=== PATIENT | male | born 1970 | race Caucasian/White ===

== ENCOUNTER 2020-04-25 09:35 | Inpatient (IN) | payer OTHER ==
[2020-04-25] MEDS ORDERED: ASPIRIN 81 MG PO STA (09:47)
[2020-04-25] MEDS ORDERED: HEPARIN SODIUM,PORCINE 5,000 UNIT/ML 1 ML VIAL IV STA (09:47)
[2020-04-25] MEDS ORDERED: NALOXONE 0.4 MG/ML 1 ML VIAL IV PRN (09:51)
--- NOTE | 2020-04-25 09:51 | ED ---
General Adult HPI - General Chief complaint: Chest Pain Stated complaint: chest pain Time Seen by Provider: 04/25/20 09:40 Source: family Mode of arrival: wheelchair Limitations: no limitations - History of Present Illness Initial comments: Dictation was produced using [employer] dictation software. please excuse any grammatical, word or spelling errors. This patient was cared for during a federal and state declared state of emergency secondary to Covid 19 Chief Complaint: 49-year-old male presents with chest pain since yesterday. History of Present Illness: Patient's 49-year-old male he has family history of coronary artery disease and heart attacks. Patient states she's been having severe chest pain since yesterday. This morning he woke up with the symptoms getting acutely worsened. He has had diaphoresis along with this. He states that he has paresthesias going down the left upper extremity. Patient denies that the pain radiates to his back. Patient has past medical history of hypertension. Patient has never had a heart attack. Patient is a current every day tobacco user. Does complain of some mild nausea. The ROS documented in this emergency department record has been reviewed and confirmed by me. Those systems with pertinent positive or negative responses have been documented in the HPI. All other systems are other negative and/or noncontributory. PHYSICAL EXAM: General Impression: Alert and oriented x3, acute distress secondary to pain, pale HEENT: Normocephalic atraumatic, extra-ocular movements intact, pupils equal and reactive to light bilaterally, mucous membranes moist. Cardiovascular: Heart regular rate and rhythm Chest: Able to complete full sentences, no retractions, no tachypnea Abdomen: abdomen soft, non-tender, non-distended, no organomegaly Musculoskeletal: Pulses present and equal in all extremities, no peripheral edema Motor: no focal deficits noted Neurological: CN II-XII grossly intact, no focal motor or sensory deficits noted Skin: Intact with no visualized rashes Psych: Normal affect and mood ED course: 49-year-old male presents with chest pain concerning for acute coronary syndrome. EKG obtained showing inferior wall STEMI. There is ST elevations in 3 aVF with reciprocal changes in 1 and aVL and lateral precordial leads. Right-sided EKG was performed showing ST elevations. Clinical presentation consistent with right-sided myocardial infarction. Her also diffuse Q waves. Code STEMI paged. Patient given aspirin and heparin. Discussed patient case with Dr. Candelario will be taking patient to the [facility] for cardiac catheterization and likely intervention.. Discussed patient case with sheet was went except patient's care for hospital admission. EKG interpretation: Ventricular rate 102, sinus tachycardia, CA interval 150, QRS 106, QTC 500. No CA prolongation, no QTC prolongation, ST elevations in 3 and aVF with reciprocal changes in 1 aVL and V4 to V6 - Related Data Allergies Allergy/AdvReac Type Severity Reaction Status Date / Time No Known Allergies Allergy Verified 04/25/20 09:39 Review of Systems ROS Statement: Those systems with pertinent positive or pertinent negative responses have been documented in the HPI. ROS Other: All systems not noted in ROS Statement are negative. Past Medical History Past Medical History: Hypertension Past Surgical History: Unable to Obtain Past Psychological History: No Psychological Hx Reported Smoking Status: Current every day smoker Past Alcohol Use History: None Reported Past Drug Use History: None Reported General Exam Limitations: no limitations Course Vital Signs 04/25/20 04/25/20 09:37 09:45 Temperature 97.4 F L Pulse Rate 64 103 H Respiratory 18 24 Rate Blood Pressure 178/130 O2 Sat by Pulse 98 97 Oximetry Disposition Clinical Impression: STEMI (ST elevation myocardial infarction) Disposition: ADMITTED IP TO THIS HOSP Condition: Critical Referrals: None,Stated [Primary Care Provider] - 1-2 days Decision Time: 09:50
[2020-04-25] MEDS ORDERED: MORPHINE SULFATE 2 MG/ML SYRINGE IVP STA (09:54)
[2020-04-25] MEDS ORDERED: HEPARIN SOD,PORK IN 0.45% NACL 25,000 UNIT in 0.45% NACL 1 250ML.BAG IV SCH (10:00)
[2020-04-25 10:01] LABS: Basophils # (A) 0.1 k/uL (0-0.2); Basophils % (A) 1 %; Eosinophils # (A) 0.2 k/uL (0-0.7); Eosinophils % (A) 1 %; HCT 42.6 % (39.0-53.0); HGB 13.6 gm/dL (13.0-17.5); Hypochromasia Slight; Lymphocytes # (A) 1.7 k/uL (1.0-4.8); Lymphocytes % (A) 9 %; MCH 27.2 pg (25.0-35.0); MCHC 31.9 g/dL (31.0-37.0); MCV 85.1 fL (80.0-100.0); Monocytes # (A) 0.7 k/uL (0-1.0); Monocytes % (A) 4 %; Neutrophils # (A) 15.3 k/uL (1.3-7.7); Neutrophils % (A) 85 %; Platelet Count 384 k/uL (150-450); RBC 5.01 m/uL (4.30-5.90); RDW 15.9 % (11.5-15.5); WBC 18.1 k/uL (3.8-10.6)
--- NOTE | 2020-04-25 10:04 | XR ---
EXAMINATION TYPE: XR chest 1V portable DATE OF EXAM: 04/25/2020 COMPARISON: 10/15/2011 HISTORY: Chest pain TECHNIQUE: Single frontal view of the chest is obtained. FINDINGS: Examination is poorly penetrated. There appear to be right infrahilar and left perihilar infiltrates. Correlate clinically. No evidence for pneumothorax. The cardiac silhouette size is within normal limits. The osseous structures are intact. IMPRESSION: 1. Examination is poorly penetrated. There appear to be right infrahilar and left perihilar infiltra rodríguez. Correlate clinically.
[2020-04-25 10:11] LABS: Albumin 3.7 g/dL (3.5-5.0); Total Protein 6.7 g/dL (6.3-8.2)
[2020-04-25] MEDS ORDERED: LIDOCAINE 1% INJ 10MG/ML (20 ML MDV) SQ ONE (10:12)
[2020-04-25] MEDS ORDERED: MIDAZOLAM 2 MG/2 ML VIAL IVP ONE (10:12)
[2020-04-25] MEDS ORDERED: fentaNYL (PF) 50 MCG/ML 2 ML AMP IVP ONE (10:12)
[2020-04-25 10:19] LABS: INR 1.1 (<1.2); Partial Thromboplastin Time 23.7 sec (22.0-30.0)
[2020-04-25] MEDS ORDERED: FUROSEMIDE 10 MG/ML 4 ML VIAL IV ONE (10:25)
[2020-04-25] MEDS ORDERED: BIVALIRUDIN BOLUS 250 MG/50 ML IV ONE (10:25)
[2020-04-25] MEDS ORDERED: BIVALIRUDIN 250 MG in SODIUM CHLORIDE 0.9% 50 ML IV ONE (10:25)
[2020-04-25] MEDS ORDERED: FLUMAZENIL 0.1 MG/ML 5 ML VIAL IVP ONE ×2 (10:40→10:42)
[2020-04-25] MEDS ORDERED: IOPAMIDOL-370 100ML BTL INJ ONE ×2 (10:42→10:53)
[2020-04-25] MEDS ORDERED: PRASUGREL 10 MG TAB PO ONE (10:45)
[2020-04-25] MEDS ORDERED: ATROPINE SULFATE 0.1 MG/ML 10ML SYRINGE IV ONE (10:45)
[2020-04-25] MEDS ORDERED: IV FLUID CONTINUATION 1,000 ML IV ONE (10:54)
[2020-04-25] MEDS ORDERED: RX INFO: IV CONTRAST WAS GIVEN 1 EACH MISC MISCELLANE PRN (10:59)
[2020-04-25] MEDS ORDERED: ATROPINE SULFATE 0.1 MG/ML 10ML SYRINGE IV PRN (10:59)
[2020-04-25] MEDS ORDERED: ZOLPIDEM 5 MG TAB PO PRN (10:59)
[2020-04-25] MEDS ORDERED: MAG HYDROX/AL HYDROX/SIMETH 30 ML CUP PO PRN (10:59)
[2020-04-25] MEDS ORDERED: NITROGLYCERIN SL TABS 0.4 MG TAB SUBLINGUAL PRN (10:59)
[2020-04-25] MEDS ORDERED: SODIUM CHLORIDE 0.9% 1,000 ML IV SCH (11:00)
[2020-04-25 11:27] LABS: Glucose,Whole Blood 161 mg/dL (75-99)
[2020-04-25] MEDS ORDERED: METOPROLOL SUCCINATE (ER) 50 MG TAB.ER.24H PO SCH (12:00)
[2020-04-25] MEDS ORDERED: LISINOPRIL 20 MG TAB PO SCH (12:00)
[2020-04-25 14:09] VITALS: BMI 30.9
[2020-04-25] MEDS ORDERED: LISINOPRIL 20 MG TAB PO STA (15:07)
[2020-04-25] MEDS ORDERED: METOPROLOL SUCCINATE (ER) 50 MG TAB.ER.24H PO STA (15:10)
--- NOTE | 2020-04-25 15:25 | CONS ---
RAKESH Cook is a 49-year-old gentleman with history of hypertension who presented to the hospital with acute onset chest pain. He states that he started having pericardial chest pain around 7 o'clock this morning, severe intensity precordial and radiated to his back. This started after he started having an argument. He came to the ER where an EKG showed acute ST-segment elevation and was advised to undergo emergent cardiac catheterization. 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 He appears uncomfortable at rest. Blood pressure is elevated. Complains of chest pain and started him on IV nitro and proceeded to perform emergent cardiac catheterization on him. His labs were pending at that time, but subsequently the labs came back. His creatinine is 1.1, hemoglobin is 13.6, white cell count is elevated. Potassium is 4. PAST MEDICAL HISTORY: Significant for hypertension. MEDICATIONS: At home include hydralazine 100 t.i.d., Toprol-XL 100 daily, Prozac, Klonopin, minoxidil, lisinopril, and Lasix. ALLERGIES: There are no known drug allergies. FAMILY HISTORY: Significant for premature coronary artery disease. SOCIAL HISTORY: Significant for smoking. He denies any drug abuse. REVIEW OF SYSTEMS: HEENT is unremarkable. Cardiac as described above. Respiratory negative. GI negative. Genitourinary negative. Allergy none. Skin negative. MUSCULOSKELETAL: Negative. ENDOCRINE: Negative. DERM: Negative. CONSTITUTIONAL: Negative. ONCOLOGICAL: Negative. 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 PSYCHOSOCIAL negative. Rest of the system review is not relevant. EXAM: Heart rate is 103 beats per minute. Blood pressure is 157/120, O2 saturation is 100% on 2 L. there is no jugular venous distention. Chest exam reveals good air entry bilaterally. Heart exam reveals first and second heart sounds. An S4 is heard. Abdomen is soft. Exam of extremities did not reveal any edema. Peripheral pulses are felt. An S4 is heard. Abdomen is soft. LABS: Have been reviewed. EKG shows sinus rhythm with evidence of prior inferior wall myocardial infarction, poor R-wave progression and intraventricular conduction delay and there are extensive ST-T wave changes noted. ASSESSMENT: 1. Acute inferior wall myocardial infarction. 2. Severe uncontrolled hypertension. PLAN: The patient will undergo emergent cardiac catheterization. We will try and control his blood pressures. MMODL / IJN: [id number] /
[2020-04-25] MEDS: NITROGLYCERIN OINT 1 INCH/GM PACKET TOPICAL SCH (15:30)
--- NOTE | 2020-04-25 15:41 | P.HPIM ---
History of Present Illness Patient is a pleasant 49-year-old gentleman came in with compensative chest pain-free currently. Typical chest pain severe chest pain along with associate shortness of breath and diaphoresis. Patient is found to have ST elevations in inferior leads underwent cardiac catheterization and found to have significant lesions in the right coronary artery received 2 stents. Patient is presently in dual antiplatelet therapy in the beta sloane. Patient with blood cell count is elevated. Patient chest pain significantly improved does have history of smoking is not wheezing at this time. Patient blood pressure was elevated on admission. Review of Systems REVIEW OF SYSTEMS: CONSTITUTIONAL: No fever, no malaise, no fatigue. HEENT: No recent visual problems or hearing problems. Denied any sore throat. CARDIOVASCULAR: No orthopnea, PND, no palpitations, no syncope. PULMONARY: no cough, no hemoptysis. GASTROINTESTINAL: No diarrhea, no nausea, no vomiting, no abdominal pain. NEUROLOGICAL: No headaches, no weakness, no numbness. HEMATOLOGICAL: Denies any bleeding or petechiae. GENITOURINARY: Denies any burning micturition, frequency, or urgency. MUSCULOSKELETAL/RHEUMATOLOGICAL: Denies any joint pain, swelling, or any muscle pain. ENDOCRINE: Denies any polyuria or polydipsia. The rest of the 14-point review of systems is negative. Past Medical History Past Medical History: Coronary Artery Disease (CAD), Chest Pain / Angina, COPD, GERD/Reflux, Hypertension, Osteoarthritis (OA), Rheumatoid Arthritis (RA) Additional Past Medical History / Comment(s): Opiate addiction remission since 2014. History of Any Multi-Drug Resistant Organisms: None Reported Past Surgical History: Unable to Obtain Additional Past Surgical History / Comment(s): R foot reconstruction post crushing injury. Past Anesthesia/Blood Transfusion Reactions: No Reported Reaction Past Psychological History: No Psychological Hx Reported Smoking Status: Current every day smoker Past Alcohol Use History: None Reported Past Drug Use History: None Reported Medications and Allergies Home Medications Medication Instructions Recorded Confirmed Type FLUoxetine HCL [PROzac] 20 mg PO DAILY 04/25/20 04/25/20 History Furosemide [Lasix] 40 mg PO DAILY 04/25/20 04/25/20 History Lisinopril 40 mg PO DAILY 04/25/20 04/25/20 History Metoprolol Succinate (ER) [Toprol 100 mg PO DAILY 04/25/20 04/25/20 History Xl] Minoxidil [Loniten] 10 mg PO DAILY 04/25/20 04/25/20 History clonazePAM [KlonoPIN] 2 mg PO TID PRN 04/25/20 04/25/20 History hydrALAZINE HCL [Apresoline] 100 mg PO TID 04/25/20 04/25/20 History lamoTRIgine [LaMICtal] 200 mg PO DAILY 04/25/20 04/25/20 History Allergies Allergy/AdvReac Type Severity Reaction Status Date / Time No Known Allergies Allergy Verified 04/25/20 10:02 Physical Exam Vitals: Vital Signs Temp Pulse Resp BP Pulse Ox 04/25/20 14:00 92 14 152/107 98 04/25/20 13:45 89 19 94 L 04/25/20 13:30 97 18 96 04/25/20 13:15 97 14 98 04/25/20 13:00 96 14 146/94 97 04/25/20 12:45 93 16 97 04/25/20 12:30 93 20 97 04/25/20 12:15 90 19 96 04/25/20 12:00 98 F 92 19 145/94 95 04/25/20 11:45 97 16 121/83 96 04/25/20 11:30 96 18 94 L 04/25/20 09:55 103 H 20 157/120 100 04/25/20 09:51 102 H 20 177/139 100 04/25/20 09:45 103 H 24 178/130 97 04/25/20 09:37 97.4 F L 64 18 98 Intake and Output 04/25/20 04/25/20 04/25/20 06:59 14:59 22:59 Intake Total 627 Output Total 1400 Balance -773 Intake: IV 627 Sodium Chloride 0.9% 1, 300 000 ml @ 75 mls/hr IV . [id number] [facility] Rx#:[id number] Output: Urine 1400 Other: Weight 81.647 kg ABP, PAP, CO, CI - Last 8 Hours Arterial Blood Pressure 156/99 Arterial Blood Pressure 155/99 Arterial Blood Pressure 160/102 Arterial Blood Pressure 159/96 Arterial Blood Pressure 159/97 Arterial Blood Pressure 148/89 Arterial Blood Pressure 165/100 Arterial Blood Pressure 154/92 Arterial Blood Pressure 154/87 Arterial Blood Pressure 155/96 Arterial Blood Pressure 141/86 PHYSICAL EXAMINATION: GENERAL: The patient is alert and oriented x3, not in any acute distress. Well developed, well nourished. HEENT: Pupils are round and equally reacting to light. EOMI. No scleral icterus. No conjunctival pallor. Normocephalic, atraumatic. No pharyngeal erythema. No thyromegaly. CARDIOVASCULAR: S1 and S2 present. No murmurs, rubs, or gallops. PULMONARY: Chest is clear to auscultation, no wheezing or crackles. ABDOMEN: Soft, nontender, nondistended, normoactive bowel sounds. No palpable organomegaly. MUSCULOSKELETAL: No joint swelling or deformity. EXTREMITIES: No cyanosis, clubbing, or pedal edema. NEUROLOGICAL: Gross neurological examination did not reveal any focal deficits. SKIN: No rashes. Results CBC & Chem 7: 04/25/20 09:53 04/25/20 09:53 Labs: Abnormal Lab Results - Last 24 Hours (Table) 04/25/20 04/25/20 04/25/20 Range/Units 09:53 09:53 09:53 WBC 18.1 H (3.8-10.6) k/uL RDW 15.9 H (11.5-15.5) % Neutrophils # 15.3 H (1.3-7.7) k/uL Carbon Dioxide 21 L (22-30) mmol/L BUN 23 H (9-20) mg/dL Glucose 127 H (74-99) mg/dL POC Glucose (mg/dL) (75-99) mg/dL AST 103 H (17-59) U/L ALT 92 H (4-49) U/L Troponin I 0.195 H* (0.000-0.034) ng/mL 04/25/20 Range/Units 11:25 WBC (3.8-10.6) k/uL RDW (11.5-15.5) % Neutrophils # (1.3-7.7) k/uL Carbon Dioxide (22-30) mmol/L BUN (9-20) mg/dL Glucose (74-99) mg/dL POC Glucose (mg/dL) 161 H (75-99) mg/dL AST (17-59) U/L ALT (4-49) U/L Troponin I (0.000-0.034) ng/mL Thrombosis Risk Factor Assmnt - Choose All That Apply Any of the Below Risk Factors Present?: Yes Each Factor Represents 1 point: Acute MS, Age 41-60 years Thrombosis Risk Factor Assessment Total Risk Factor Score: 2 Thrombosis Risk Factor Assessment Level: Low Risk Assessment and Plan Plan: -Acute ST elevation myocardial infarction: Patient is status post cardiac catheterization and stenting to RCA. Continue with the dual antiplatelet therapy and a sloane, lisinopril. -Continued nicotine use: Counseling was provided and patient is willing to quit after this episode -Hypertension uncontrolled elevated blood pressure patient was started on lisinopril today which will be continued was given hydralazine before the procedure this study catheterization -Shortness of breath due to myocardial infarction -Leukocytosis reactive secondary to microinfarction. -Gastroesophageal reflux disease -COPD without any acute exacerbation
--- NOTE | 2020-04-25 16:31 | PTCA ---
PERCUTANEOUSTRANS CORORONARY ANGIOGRAPHY DATE OF SERVICE: 04/25/2020 PERFORMING PHYSICIAN: Bandar Osei M.D. PROCEDURES PERFORMED: 1. Aspiration thrombectomy from the right coronary artery using the [place] catheter with extraction of red thrombus. 2. Successful stenting of the mid left anterior descending artery using a 3.25 x 12 and 3.25 x 18 mm Xience drug-eluting stents with excellent angiographic results and reduction of stenosis from 100% to 0%. INDICATION: This is a 49-year-old gentleman with obesity who presented to the hospital with chest discomfort and EKG concerning for acute ST-elevation myocardial infarction. He underwent an emergent heart catheterization by Dr. Candelario and was found to have occluded RCA. The decision was made for emergent percutaneous coronary intervention. APPROACH: Right common femoral artery. COMPLICATIONS: None. LEVEL OF SEDATION: Moderate, with sedation length of 27 minutes. Door to balloon was 58 minutes. PROCEDURE DESCRIPTION: Please refer to the diagnostic heart catheterization that was performed by Dr. Candelario earlier today. Anticoagulation was initiated using Angiomax. Subsequently I did engage the RCA using Maxx right catheter. Subsequently I crossed the acute total occlusion of the mid RCA using a Whisper wire, and the wire was advanced to the distal right coronary artery. After that I did aspiration thrombectomy from the right coronary artery using the [place] catheter. Subsequently I did direct stenting of the lesion in the mid RCA using a 3.25 x 12 mm Xience GILBERTO where the stent was positioned under fluoroscopic guidance and deployed under 20 atmospheres for 20 seconds. The following angiogram showed what seems to be another lesion distal to that lesion with what seems to be an ulcerated lesion as well. Because of that I decided to cover that with a stent. I deployed it distal to the first stent, another 3.25 x 18 mm Xience GILBERTO where the stent was positioned under fluoroscopic guidance and deployed under 18 atmospheres for 20 seconds. The following angiogram showed excellent angiographic results and the procedure was completed without any complication. POST-PROCEDURE MANAGEMENT: 1. Dual anti-platelet therapy. 2. Risk factor modifications. 3. Aggressive cholesterol control. 4. An echocardiogram with Doppler. 5. Follow up with the patient. MMODL / IJN: [id number] /
[2020-04-25] MEDS ORDERED: METOPROLOL TARTRATE 12.5 MG TAB PO SCH (21:00)
[2020-04-25] MEDS: ATORVASTATIN 80 MG TAB PO SCH (21:30)
[2020-04-26] MEDS: NITROGLYCERIN OINT 1 INCH/GM PACKET TOPICAL SCH ×3 (00:11→16:25)
[2020-04-26 04:44] LABS: HCT 36.2 % (39.0-53.0); HGB 11.6 gm/dL (13.0-17.5); MCH 27.1 pg (25.0-35.0); MCHC 32.1 g/dL (31.0-37.0); MCV 84.3 fL (80.0-100.0); Mean Platelet Volume 8.2; Platelet Count 313 k/uL (150-450); RDW 15.8 % (11.5-15.5); WBC 14.2 k/uL (3.8-10.6)
[2020-04-26 04:56] LABS: Calcium 8.9 mg/dL (8.4-10.2); Potassium 4.1 mmol/L (3.5-5.1)
[2020-04-26] MEDS: ASPIRIN 325 MG TAB PO SCH (08:29)
[2020-04-26] MEDS: LISINOPRIL 20 MG TAB PO SCH (08:29)
[2020-04-26] MEDS: PRASUGREL 10 MG TAB PO SCH (08:29)
[2020-04-26] MEDS: METOPROLOL SUCCINATE (ER) 100 MG TAB.ER.24H PO SCH (08:30)
[2020-04-26] MEDS ORDERED: LISINOPRIL 2.5 MG TAB PO SCH (09:00)
--- NOTE | 2020-04-26 13:27 | P.PN ---
Subjective 49-year-old gentleman came in with compensative chest pain-free currently. Typical chest pain severe chest pain along with associate shortness of breath and diaphoresis. Patient is found to have ST elevations in inferior leads underwent cardiac catheterization and found to have significant lesions in the right coronary artery received 2 stents. Patient is presently in dual antiplatelet therapy in the beta sloane. Patient with blood cell count is elevated. Patient chest pain significantly improved does have history of smoking is not wheezing at this time. Patient blood pressure was elevated on admission. 04/26/2020 No overnight events patient is clinically doing well echocardiogram is pending. Constitutional: Denied any fatigue denied any fever. Cardio vascular: denied any chest pain, palpitations Gastrointestinal denied any nausea vomiting Pulmonary: Denied any shortness of breath cough Neurologic denied any new focal deficits All inpatient medications were reviewed and appropriate changes in these medications as dictated in the interval history and assessment and plan. Objective - Vital Signs Vital signs: Vital Signs Temp 98.7 F 04/26/20 12:00 Pulse 89 04/26/20 13:00 Resp 20 04/26/20 12:00 BP 147/104 04/26/20 12:00 Pulse Ox 97 04/26/20 12:00 Intake & Output 04/25/20 04/26/20 04/26/20 18:59 06:59 18:59 Intake Total 927 425 530 Output Total 1460 985 500 Balance -533 -560 30 Weight 81.647 kg 105.1 kg Intake: IV 927 225 Sodium Chloride 0.9% 1, 600 225 000 ml @ 75 mls/hr IV . [id number] [facility] Rx#:[id number] Oral 200 530 Output: Urine 1460 985 500 ABP, PAP, CO, CI - Last Documented Arterial Blood Pressure 135/91 - Exam PHYSICAL EXAMINATION: GENERAL: The patient is alert and oriented x3, not in any acute distress. Well developed, well nourished. HEENT: Pupils are round and equally reacting to light. EOMI. No scleral icterus. No conjunctival pallor. Normocephalic, atraumatic. No pharyngeal erythema. No thyromegaly. CARDIOVASCULAR: S1 and S2 present. No murmurs, rubs, or gallops. PULMONARY: Chest is clear to auscultation, no wheezing or crackles. ABDOMEN: Soft, nontender, nondistended, normoactive bowel sounds. No palpable organomegaly. MUSCULOSKELETAL: No joint swelling or deformity. EXTREMITIES: No cyanosis, clubbing, or pedal edema. NEUROLOGICAL: Gross neurological examination did not reveal any focal deficits. SKIN: No rashes. - Labs CBC & Chem 7: 04/26/20 03:48 04/26/20 03:48 Labs: Abnormal Lab Results - Last 24 Hours (Table) 04/26/20 04/26/20 04/26/20 Range/Units 03:48 03:48 11:23 WBC 14.2 H (3.8-10.6) k/uL Hgb 11.6 L (13.0-17.5) gm/dL Hct 36.2 L (39.0-53.0) % RDW 15.8 H (11.5-15.5) % Sodium 134 L (137-145) mmol/L BUN 28 H (9-20) mg/dL Troponin I 42.300 H* (0.000-0.034) ng/mL Assessment and Plan Plan: -Acute ST elevation myocardial infarction: Patient is status post cardiac catheterization and stenting to RCA. Continue with the dual antiplatelet therapy and a sloane, lisinopril. -Continued nicotine use: Counseling was provided and patient is willing to quit after this episode -Hypertension uncontrolled elevated blood pressure patient blood pressure is still elevated but bit better. Can you with the above-mentioned regimen. -Shortness of breath due to myocardial infarction -Leukocytosis reactive secondary to microinfarction. -Gastroesophageal reflux disease -COPD without any acute exacerbation
--- NOTE | 2020-04-26 14:43 | PN ---
PROGRESS NOTE Joey is a 49-year-old gentleman who is admitted to hospital with acute myocardial infarction, underwent cardiac catheterization and angioplasty of right coronary artery. This morning, patient appears comfortable at rest, free of symptoms. Vital signs are stable. Heart rate is 89 beats a minute. Blood pressure is 130/78, respirations 18. There is no jugular venous distention. Chest exam reveals good air entry bilaterally. Heart exam reveals first and second heart sounds. No gallop. No murmur. Abdomen is soft, nontender. Exam of extremities did not reveal any edema. Peripheral pulses are felt. Labs show a hemoglobin of 11.6, potassium is 4.1, creatinine is 1.2. His coronavirus negative. ASSESSMENT: 1. Acute inferior wall myocardial infarction status post catheterization and angioplasty of an acutely occluded right coronary artery. I do not have any troponins on him other than the very first one. I will add one to the morning sample. The patient had an echo. I will follow the results once they are available. 2. Uncontrolled hypertension. The patient is currently on aspirin, Lipitor, Toprol, Zestril, nitro paste, and Effient. Blood pressure is poorly controlled. He is back on his oral medications other than the hydralazine, which I will resume if necessary. PLAN: Patient is doing well. He can be transferred out of ICU. MMODL / IJN: [id number] /
--- NOTE | 2020-04-26 15:01 | CDI ---
Documentation Clarification Form Date: 04/26/2020 02:51:32 PM From: Geovanna Cooper CCS, CCDS Admit Date: 04/25/2020 09:41:00 AM Patient Name: Joey Wagner Visit Number: [id number] Discharge Date: ATTENTION: The Clinical Documentation Specialists (CDI) and [facility] Coding Staff appreciate your assistance in clarifying documentation. Please respond to the clarification below the line at the bottom and electronically sign. The CDI & [facility] Coding staff will review the response and follow-up if needed. Please note: Queries are made part of the Legal Health Record. If you have any questions, please contact the author of this message via ITS. Dr. Casey Davis: Per the 04/25 History & Physical and the 04/26 Attending Progress Note: "Hypertension, uncontrolled" is documented without further specificity. History/Risk Factors: CAD, Hypertension, COPD, GERD. Smoker. 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 VS 04/25: T 97.4*, P 64-103^, R 18-24, PO 98 RA-100 2Lnc BP 04/25: 178/130^, 177/139^, 157/120 Treatment: po ASA, IV Heparin drip, IV Morphine, IV Lasix, IV Atropine. In your professional opinion, can you please further specify the uncontrolled hypertension: Hypertensive Emergency Hypertensive Urgency Other, please specify Unable to determine (Last Revision: January 2018) none of the above MTDD
--- NOTE | 2020-04-26 15:13 | ECHOF ---
Referral Reason:STEMI MEASUREMENTS -------- HEIGHT: 162.6 cm WEIGHT: 81.6 kg BP: 121/83 RVIDd: 3.6 cm (< 3.3) IVSd: 1.4 cm (0.6 - 1.1) LVIDd: 5.2 cm (3.9 - 5.3) LVPWd: 1.5 cm (0.6 - 1.1) IVSs: 1.9 cm LVIDs: 3.7 cm LVPWs: 2.0 cm LA Diam: 3.7 cm (2.7 - 3.8) LAESV Index (A-L): 42.05 ml/m Ao Diam: 3.7 cm (2.0 - 3.7) AV Cusp: 2.4 cm (1.5 - 2.6) MV EXCURSION: 12.842 mm (> 18.000) MV EF SLOPE: 39 mm/s (70 - 150) EPSS: 1.7 cm MV E Deric: 0.86 m/s MV DecT: 147 ms MV A Deric: 0.63 m/s MV E/A Ratio: 1.36 RAP: 15.00 mmHg RVSP: 42.30 mmHg FINDINGS -------- This was a technically adequate study. The left ventricular size is normal. There is moderate concentric left ventricular hypertrophy. O verall left ventricular systolic function is severely impaired with, an EF between 25 - 30 %. There is evidence of paradoxical septal motion. Basal inferior LV wall motion is hypokinetic. Basal i nferoseptal LV wall motion is hypokinetic. Mid inferior LV wall motion is hypokinetic. Apical i nferior LV wall motion is hypokinetic. The right ventricle is mildly enlarged. LA is severely dilated >40 ml/m2 The right atrium is normal in size. Interatrial and interventricular septum intact. Aortic valve is trileaflet and is mildly thickened. Moderate mitral regurgitation is present. Mild tricuspid regurgitation present. There is mild pulmonary hypertension. The right ventricular systolic pressure, as measured by Doppler, is 42.30mmHg. The pulmonic valve was not well visualized. The aortic root size is normal. The inferior vena cava is dilated with no significant inspiratory collapse which is consistent estima virginie right atrial pressure of >15 mmHg. There is no pericardial effusion. CONCLUSIONS -------- 1. This was a technically adequate study. 2. The left ventricular size is normal. 3. There is moderate concentric left ventricular hypertrophy. 4. Overall left ventricular systolic function is severely impaired with, an EF between 25 - 30 %. 5. There is evidence of paradoxical septal motion. 6. Basal inferior LV wall motion is hypokinetic. 7. Basal inferoseptal LV wall motion is hypokinetic. 8. Mid inferior LV wall motion is hypokinetic. 9. Apical inferior LV wall motion is hypokinetic. 10. The right ventricle is mildly enlarged. 11. LA is severely dilated >40 ml/m2 12. The right atrium is normal in size. 13. Interatrial and interventricular septum intact. 14. Aortic valve is trileaflet and is mildly thickened. 15. Moderate mitral regurgitation is present. 16. Mild tricuspid regurgitation present. 17. There is mild pulmonary hypertension. 18. The right ventricular systolic pressure, as measured by Doppler, is 42.30mmHg. 19. The pulmonic valve was not well visualized. 20. The aortic root size is normal. 21. The inferior vena cava is dilated with no significant inspiratory collapse which is consistent es timated right atrial pressure of >15 mmHg. 22. There is no pericardial effusion. PRIVATE DUTY RN: Alanis Castellanos RDCS
[2020-04-26] MEDS: ATORVASTATIN 80 MG TAB PO SCH (20:45)
[2020-04-27] MEDS: NITROGLYCERIN OINT 1 INCH/GM PACKET TOPICAL SCH ×2 (00:35→08:24)
[2020-04-27 06:47] LABS: Basophils # (A) 0.1 k/uL (0-0.2); Basophils % (A) 1 %; Eosinophils # (A) 0.2 k/uL (0-0.7); Eosinophils % (A) 2 %; HCT 38.2 % (39.0-53.0); HGB 12.2 gm/dL (13.0-17.5); Hypochromasia Moderate; Lymphocytes # (A) 2.6 k/uL (1.0-4.8); Lymphocytes % (A) 25 %; MCH 27.4 pg (25.0-35.0); MCHC 31.8 g/dL (31.0-37.0); MCV 86.2 fL (80.0-100.0); Monocytes # (A) 0.6 k/uL (0-1.0); Monocytes % (A) 5 %; Neutrophils # (A) 6.9 k/uL (1.3-7.7); Neutrophils % (A) 66 %; Platelet Count 307 k/uL (150-450); RBC 4.44 m/uL (4.30-5.90); RDW 15.4 % (11.5-15.5); WBC 10.5 k/uL (3.8-10.6)
[2020-04-27 06:56] LABS: African American GFR (CKD) >90 (>60 ml/min/1.73 sqM); Anion Gap 5 mmol/L; Blood Urea Nitrogen 31 mg/dL (9-20); Calcium 8.8 mg/dL (8.4-10.2); Carbon Dioxide 27 mmol/L (22-30); Chloride 105 mmol/L (98-107); Glucose 136 mg/dL (74-99); Non-African American GFR(CKD) 80 (>60 ml/min/1.73 sqM); Potassium 3.8 mmol/L (3.5-5.1); Sodium 137 mmol/L (137-145)
[2020-04-27] MEDS: ASPIRIN 325 MG TAB PO SCH (08:24)
[2020-04-27] MEDS: LISINOPRIL 20 MG TAB PO SCH (08:25)
[2020-04-27] MEDS: PRASUGREL 10 MG TAB PO SCH (08:25)
[2020-04-27] MEDS: METOPROLOL SUCCINATE (ER) 100 MG TAB.ER.24H PO SCH (08:25)
[2020-04-27 08:54] VITALS: BP 141/83; PULSE 96; RESP 14; TEMP 98
--- NOTE | 2020-04-27 11:16 | P.DS ---
Providers Date of admission: 04/25/20 09:41 Attending physician: Asif Marshall MD Consults: 04/25/20 09:47 Consult Physician Stat Consulting Provider: Alycia Skinner Consult Reason/Comments: STEMI ACTIVATION COMPLETE Do you want consulting provider notified?: Yes 04/25/20 11:00 Consult Physician Routine Consulting Provider: Alycia Skinner Consult Reason/Comments: Post Interventional patient Do you want consulting provider notified?: Already Contacted Primary care physician: Stated None Hospital Course: 49-year-old gentleman came in with compensative chest pain-free currently. Typical chest pain severe chest pain along with associate shortness of breath and diaphoresis. Patient is found to have ST elevations in inferior leads underwent cardiac catheterization and found to have significant lesions in the right coronary artery received 2 stents. Patient is presently in dual antiplatelet therapy in the beta sloane. Patient with blood cell count is elevated. Patient chest pain significantly improved does have history of smoking is not wheezing at this time. Patient blood pressure was elevated on admission. 04/26/2020 No overnight events patient is clinically doing well echocardiogram is pending. 04/27/2020 patient had a decreased EF of around 25-30% most probably acute systolic dysfunction presently euvolemic not in heart failure exacerbation. [facility] patient is being discharged today in stable medical condition to home. Nicotine cessation counseling was provided again. PHYSICAL EXAMINATION: GENERAL: The patient is alert and oriented x3, not in any acute distress. obese HEENT: Pupils are round and equally reacting to light. EOMI. No scleral icterus. No conjunctival pallor. Normocephalic, atraumatic. No pharyngeal erythema. No thyromegaly. CARDIOVASCULAR: S1 and S2 present. No murmurs, rubs, or gallops. PULMONARY: Chest is clear to auscultation, no wheezing or crackles. ABDOMEN: Soft, nontender, nondistended, normoactive bowel sounds. No palpable organomegaly. MUSCULOSKELETAL: No joint swelling or deformity. EXTREMITIES: No cyanosis, clubbing, or pedal edema. NEUROLOGICAL: Gross neurological examination did not reveal any focal deficits. SKIN: No rashes. Assessment and Plan Plan: -Acute ST elevation myocardial infarction: Patient is status post cardiac catheterization and stenting to RCA. Continue with the dual antiplatelet therapy and a sloane, lisinopril. -acute systolic dysfunction without any pulmonary edema or acute heart failure exacerbation -Continued nicotine use: Counseling was provided and patient is willing to quit after this episode -Hypertension uncontrolled elevated blood pressure , blood pressure is better now -Shortness of breath due to myocardial infarction -Leukocytosis reactive secondary to microinfarction. -Gastroesophageal reflux disease -COPD without any acute exacerbation Patient Condition at Discharge: Critical Plan - Discharge Summary Discharge Rx Participant: Yes New Discharge Prescriptions: New Aspirin 325 mg PO DAILY #30 tab Atorvastatin [Lipitor] 80 mg PO HS #30 tab Mag Hydrox/Al Hydrox/Simeth [Maalox] 30 ml PO Q4HR PRN #100 ml PRN Reason: Heartburn Clopidogrel [Plavix] 75 mg PO DAILY #30 tab Continue lamoTRIgine [LaMICtal] 200 mg PO DAILY Metoprolol Succinate (ER) [Toprol XL] 100 mg PO DAILY FLUoxetine HCL [PROzac] 20 mg PO DAILY clonazePAM [KlonoPIN] 2 mg PO TID PRN PRN Reason: Anxiety Lisinopril 40 mg PO DAILY Furosemide [Lasix] 40 mg PO DAILY hydrALAZINE HCL [Apresoline] 100 mg PO TID #90 tab Discontinued Minoxidil [Loniten] 10 mg PO DAILY Discharge Medication List FLUoxetine HCL [PROzac] 20 mg PO DAILY 04/25/20 [History] Furosemide [Lasix] 40 mg PO DAILY 04/25/20 [History] Lisinopril 40 mg PO DAILY 04/25/20 [History] Metoprolol Succinate (ER) [Toprol XL] 100 mg PO DAILY 04/25/20 [History] clonazePAM [KlonoPIN] 2 mg PO TID PRN 04/25/20 [History] lamoTRIgine [LaMICtal] 200 mg PO DAILY 04/25/20 [History] Aspirin 325 mg PO DAILY #30 tab 04/27/20 [Rx] Atorvastatin [Lipitor] 80 mg PO HS #30 tab 04/27/20 [Rx] Clopidogrel [Plavix] 75 mg PO DAILY #30 tab 04/27/20 [Rx] Mag Hydrox/Al Hydrox/Simeth [Maalox] 30 ml PO Q4HR PRN #100 ml 04/27/20 [Rx] hydrALAZINE HCL [Apresoline] 100 mg PO TID #90 tab 04/27/20 [Rx] Follow up Appointment(s)/Referral(s): Wilfrido Mejia MD [REFERRING] - 1 Week Bowen Candelario MD [STAFF PHYSICIAN] - 1 Week Patient Instructions/Handouts: Heart Attack (DC), How to Stop Smoking (DC), Heart Healthy Diet (DC) Discharge Disposition: HOME SELF-CARE
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
--- NOTE | 2020-04-27 15:53 | CC ---
CARDIAC CATHETERIZATION REPORT INDICATION: Acute inferior wall myocardial infarction. PROCEDURE NOTE: After obtaining informed consent, left heart catheterization and coronary angiogram were performed via the right femoral artery using standard Taryn catheters. Patient tolerated the procedure well without any obvious immediate complication. FINDINGS: HEMODYNAMICS: Left ventricular end-diastolic pressure is 24 mm. There is no significant gradient across the aortic valve. ANGIOGRAPHIC DATA: RIGHT CORONARY ARTERY: Right coronary artery appears totally occluded in its proximal portion. LEFT MAIN CORONARY ARTERY: Left main coronary artery is a normal-sized vessel and is free of stenosis. It divides into left anterior descending coronary artery and circumflex coronary artery. LAD shows mild nonobstructive disease. Circumflex coronary artery and its branches show mild nonobstructive disease. CONCLUSION: Acutely occluded right coronary artery. PLAN: Patient will undergo emergent angioplasty of the same. MMODL / IJN: [id number] /
--- NOTE | 2020-04-27 15:56 | PCN ---
PROCEDURE NOTE DATE OF SERVICE: 04/27/2020 PROCEDURE NOTE: After obtaining informed consent, left heart catheterization and coronary angiogram were performed via right femoral artery using standard Taryn catheters. Patient tolerated the procedure well without any obvious complications. The patient received moderate conscious sedation. Total sedation time was 14 minutes. JANICE / CHRISTI: [id number] /
[2020-04-28] MEDS ORDERED: CLOPIDOGREL 75 MG TAB PO SCH ×2 (09:00)
== END 2020-04-27 11:27 | disposition home or self-care (01) | DRG 247 ==
LOC: EC 09:35 → 2SICU 09:41
PROVIDERS: ADMIT Internal Medicine; ATTEND Internal Medicine
PROC: 027035Z Dilation of Coronary Artery, One Artery with Two Drug-eluting Intraluminal Devices, Percutaneous Approach (ICD-10-PCS; principal; 2020-04-25 09:50)
PROC: 02C03ZZ Extirpation of Matter from Coronary Artery, One Artery, Percutaneous Approach (ICD-10-PCS; principal; 2020-04-25 09:50)
PROC: 4A023N7 Measurement of Cardiac Sampling and Pressure, Left Heart, Percutaneous Approach (ICD-10-PCS; 2020-04-25 09:50)
PROC: B2111ZZ Fluoroscopy of Multiple Coronary Arteries using Low Osmolar Contrast (ICD-10-PCS; 2020-04-25 09:50)
DX: I21.19 ST elevation (STEMI) myocardial infarction involving other coronary artery of inferior wall (principal); I25.5 Ischemic cardiomyopathy; D72.829 Elevated white blood cell count, unspecified; E66.9 Obesity, unspecified; F17.200 Nicotine dependence, unspecified, uncomplicated; I10 Essential (primary) hypertension; I25.10 Atherosclerotic heart disease of native coronary artery without angina pectoris; J44.9 Chronic obstructive pulmonary disease, unspecified; K21.9 Gastro-esophageal reflux disease without esophagitis; M06.9 Rheumatoid arthritis, unspecified; M19.90 Unspecified osteoarthritis, unspecified site; Z11.59 Encounter for screening for other viral diseases; Z68.39 Body mass index [BMI] 39.0-39.9, adult; Z79.899 Other long term (current) drug therapy; Z82.49 Family history of ischemic heart disease and other diseases of the circulatory system
CPT/HCPCS: 36415; 71045; 80048; 80053; 84484; 85025; 85027; 85610; 85730; 93306; 93458; 96374; 96375; 99285

== ENCOUNTER 2020-07-01 09:58 | Inpatient (IN) | payer OTHER ==
[2020-07-01] MEDS ORDERED: FUROSEMIDE 10 MG/ML 10 ML VIAL IV STA (10:20)
[2020-07-01] MEDS ORDERED: LORazepam 2 MG/ML INJ IV STA (10:20)
[2020-07-01] MEDS ORDERED: NITROGLYCERIN OINT 1 INCH/GM PACKET TOPICAL STA (10:21)
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
[2020-07-01 10:56] LABS: Basophils # (A) 0.1 k/uL (0-0.2); Basophils % (A) 1 %; Eosinophils # (A) 0.2 k/uL (0-0.7); Eosinophils % (A) 2 %; HCT 37.6 % (39.0-53.0); HGB 11.6 gm/dL (13.0-17.5); Hypochromasia Moderate; Lymphocytes # (A) 1.4 k/uL (1.0-4.8); Lymphocytes % (A) 13 %; MCH 25.1 pg (25.0-35.0); MCHC 30.8 g/dL (31.0-37.0); MCV 81.7 fL (80.0-100.0); Mean Platelet Volume 7.8; Monocytes # (A) 0.7 k/uL (0-1.0); Monocytes % (A) 7 %; Neutrophils # (A) 7.5 k/uL (1.3-7.7); Neutrophils % (A) 74 %; Platelet Count 315 k/uL (150-450); RBC 4.61 m/uL (4.30-5.90); RDW 15.6 % (11.5-15.5); WBC 10.1 k/uL (3.8-10.6)
[2020-07-01 11:06] LABS: ALT 115 U/L (4-49); AST 69 U/L (17-59); African American GFR (CKD) >90 (>60 ml/min/1.73 sqM); Albumin 3.5 g/dL (3.5-5.0); Alkaline Phosphatase 102 U/L (38-126); Anion Gap 5 mmol/L; Blood Urea Nitrogen 20 mg/dL (9-20); Calcium 8.6 mg/dL (8.4-10.2); Carbon Dioxide 27 mmol/L (22-30); Chloride 106 mmol/L (98-107); Glucose 87 mg/dL (74-99); Magnesium 1.8 mg/dL (1.6-2.3); Non-African American GFR(CKD) >90 (>60 ml/min/1.73 sqM); Potassium 3.6 mmol/L (3.5-5.1); Sodium 138 mmol/L (137-145); Total Protein 6.1 g/dL (6.3-8.2)
[2020-07-01 11:07] LABS: INR 1.2 (<1.2); Partial Thromboplastin Time 23.1 sec (22.0-30.0); Prothrombin Time 11.7 sec (9.0-12.0)
--- NOTE | 2020-07-01 11:47 | XR ---
EXAMINATION TYPE: XR chest 2V DATE OF EXAM: 07/01/2020 COMPARISON: 04/25/2020 HISTORY: 50-year-old male shortness of breath, difficulty breathing TECHNIQUE: AP and lateral views FINDINGS: Heart mildly moderately enlarged. Low lung volumes. Diffuse interstitial and vascular density. Small pleural effusions on the lateral view. IMPRESSION: Correlate for CHF with early interstitial pulmonary edema and small pleural effusions.
[2020-07-01] MEDS ORDERED: HEPARIN SODIUM,PORCINE 5,000 UNIT/ML 1 ML VIAL IV ONE (11:55)
[2020-07-01] MEDS ORDERED: ASPIRIN 81 MG PO STA (11:55)
[2020-07-01] MEDS ORDERED: NITROGLYCERIN SL TABS 0.4 MG TAB SUBLINGUAL PRN (11:56)
[2020-07-01] MEDS ORDERED: HEPARIN SOD,PORK IN 0.45% NACL 25,000 UNIT in 0.45% NACL 1 250ML.BAG IV SCH (12:00)
[2020-07-01] MEDS: NITROGLYCERIN OINT 1 INCH/GM PACKET TOPICAL SCH ×3 (12:31→22:59)
[2020-07-01] MEDS ORDERED: CLOPIDOGREL 75 MG TAB PO STA (13:53)
--- NOTE | 2020-07-01 13:57 | P.HPIM ---
History of Present Illness This is a pleasant 50 years old male with past medical history of coronary artery disease status post cardiac cath on 04/25/20 showing acute occluded right coronary artery status post angioplasty. Hypertension, rheumatoid arthritis, osteoarthritis, GERD, COPD. Presents because of leg swelling for 4-5 days with little dyspnea. With no chest pain and rectal cough. No abdominal pain, no change in his urine or bowel habits. 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 He states that he just got his insurance vitals looks stable , bp on the high side, CBC, BMP, INR, liver enzymes are unremarkable. Liver enzymes are slightly elevated with AST 69 and ALT 115, troponin is elevated at 0.118, which is significantly less than couple months ago at 42.3 EKG showing sinus tachycardia at 105 with frequent PVCs. Chest x-ray: CHF with pulmonary edema On admission he received aspirin and Lasix 80 mg IV and was started on heparin drip. With cardiology consult He still smokes about half pack per day, he denies alcohol or illicit drugs Review of Systems CONSTITUTIONAL: No fever, no malaise, no fatigue. HEENT: No recent visual problems or hearing problems. Denied any sore throat. CARDIOVASCULAR: No orthopnea, PND, no palpitations, no syncope. PULMONARY: No shortness of breath, no cough, no hemoptysis. GASTROINTESTINAL: No diarrhea, no nausea, no vomiting, no abdominal pain. N ormoactive bowel sounds. NEUROLOGICAL: No headaches, no weakness, no numbness. HEMATOLOGICAL: Denies any bleeding or petechiae. GENITOURINARY: Denies any burning micturition, frequency, or urgency. MUSCULOSKELETAL/RHEUMATOLOGICAL: Denies any joint pain, swelling, or any muscle pain. ENDOCRINE: Denies any polyuria or polydipsia. Past Medical History Past Medical History: Coronary Artery Disease (CAD), Chest Pain / Angina, COPD, GERD/Reflux, Hypertension, Myocardial Infarction ([place]), Osteoarthritis (OA), Rheumatoid Arthritis (RA) Additional Past Medical History / Comment(s): Opiate addiction remission since 2014. History of Any Multi-Drug Resistant Organisms: None Reported Past Surgical History: Unable to Obtain, Heart Catheterization With Stent Additional Past Surgical History / Comment(s): R foot reconstruction post crushing injury. Past Anesthesia/Blood Transfusion Reactions: No Reported Reaction Past Psychological History: Anxiety, Depression Smoking Status: Current every day smoker Past Alcohol Use History: None Reported Past Drug Use History: None Reported Medications and Allergies Home Medications Medication Instructions Recorded Confirmed Type FLUoxetine HCL [PROzac] 20 mg PO DAILY 04/25/20 07/01/20 History Furosemide [Lasix] 40 mg PO DAILY 04/25/20 07/01/20 History Metoprolol Succinate (ER) [Toprol 100 mg PO DAILY 04/25/20 07/01/20 History XL] clonazePAM [KlonoPIN] 2 mg PO TID PRN 04/25/20 07/01/20 History lamoTRIgine [LaMICtal] 200 mg PO DAILY 04/25/20 07/01/20 History lisinopriL 40 mg PO DAILY 04/25/20 07/01/20 History Aspirin 325 mg PO DAILY #30 tab 04/27/20 07/01/20 Rx Atorvastatin [Lipitor] 80 mg PO HS #30 tab 04/27/20 07/01/20 Rx Clopidogrel [Plavix] 75 mg PO DAILY #30 tab 04/27/20 07/01/20 Rx hydrALAZINE HCL [Apresoline] 100 mg PO TID #90 tab 04/27/20 07/01/20 Rx Allergies Allergy/AdvReac Type Severity Reaction Status Date / Time No Known Allergies Allergy Verified 07/01/20 12:18 Physical Exam Vitals: Vital Signs Temp Pulse Resp BP Pulse Ox 07/01/20 13:08 80 18 143/96 96 07/01/20 12:35 98.6 F 100 18 167/99 98 07/01/20 11:58 156/96 07/01/20 11:30 152/118 07/01/20 11:10 96 18 161/123 98 07/01/20 10:30 20 07/01/20 10:02 98 F 107 H 18 171/94 98 Intake and Output 06/30/20 07/01/20 07/01/20 22:59 06:59 14:59 Other: Weight 86.183 kg GENERAL: The patient is alert and oriented x3, not in any acute distress. Well developed, well nourished. HEENT: Pupils are round and equally reacting to light. EOMI. No scleral icterus. No conjunctival pallor. Normocephalic, atraumatic. No pharyngeal erythema. No thyromegaly. CARDIOVASCULAR: S1 and S2 present. No murmurs, rubs, or gallops. -PULMONARY: Chest is clear to auscultation, no wheezing. Bilateral basal crepitation. Patient has limited air entry on both sides ABDOMEN: Soft, nontender, nondistended, normoactive bowel sounds. No palpable organomegaly. MUSCULOSKELETAL: No joint swelling or deformity. -EXTREMITIES: No cyanosis, clubbing,. Bilateral leg edema NEUROLOGICAL: Gross neurological examination did not reveal any focal deficits. SKIN: No rashes. No petechiae Results CBC & Chem 7: 07/01/20 10:34 07/01/20 10:34 Labs: Abnormal Lab Results - Last 24 Hours (Table) 07/01/20 07/01/20 07/01/20 Range/Units 10:34 10:34 10:34 Hgb 11.6 L (13.0-17.5) gm/dL Hct 37.6 L (39.0-53.0) % MCHC 30.8 L (31.0-37.0) g/dL RDW 15.6 H (11.5-15.5) % INR 1.2 H (<1.2) AST 69 H (17-59) U/L ALT 115 H (4-49) U/L Troponin I (0.000-0.034) ng/mL Total Protein 6.1 L (6.3-8.2) g/dL 07/01/20 Range/Units 10:34 Hgb (13.0-17.5) gm/dL Hct (39.0-53.0) % MCHC (31.0-37.0) g/dL RDW (11.5-15.5) % INR (<1.2) AST (17-59) U/L ALT (4-49) U/L Troponin I 0.118 H* (0.000-0.034) ng/mL Total Protein (6.3-8.2) g/dL Assessment and Plan Assessment: Acute and chronic systolic CHF Coronary artery disease noncompliance and nonadherence to therapy Nicotine dependence Hypertension Rheumatoid arthritis Osteoarthritis GERD COPD, with possible acute exacerbation depression and anxiety Plan: This is a pleasant 50 years old male with recent stent to the RCA presents with acute systolic CHF. Continue with Lasix. Monitor input and output. Cardiology consult. Continue with aspirin and Plavix. Patient is counseled about the importance of taking medication, risks including but not limited to are explained to him . Also continue with a bronchodilator, we'll have some steroids, short course Labs and medication were reviewed.. Continue same treatment. Continue with symptomatic treatment. Resume home medication. Monitor lytes and vitals. DVT and GI prophylaxis. Further recommendations of the clinical course of the patient DVT prophylaxis:s heparin GI Prophylaxis: Pepcid Prognosis is guarded
[2020-07-01] MEDS: methylPREDNISolone SOD SUCCI 40 MG/ML 1 ML VIAL IV SCH ×2 (14:15→21:00)
[2020-07-01] MEDS: hydrALAZINE HCL 50 MG TAB PO SCH ×2 (15:50→20:59)
[2020-07-01] MEDS: HEPARIN SODIUM,PORCINE 5,000 UNIT/ML 1 ML VIAL IV PRN (19:19)
[2020-07-01] MEDS: SYMBICORT 160-4.5 MCG INHALER INHALATION SCH (20:34)
[2020-07-01 20:37] LABS: Glucose,Whole Blood 179 mg/dL (75-99)
[2020-07-01] MEDS: ATORVASTATIN 80 MG TAB PO SCH (20:59)
[2020-07-01] MEDS: INSULIN ASPART (NovoLOG) 100 UNIT/ML VIAL SQ SCH (21:00)
[2020-07-01] MEDS: FUROSEMIDE 10 MG/ML 4 ML VIAL IV SCH (21:00)
[2020-07-02] MEDS: HEPARIN SODIUM,PORCINE 5,000 UNIT/ML 1 ML VIAL IV PRN (03:00)
[2020-07-02 06:10] LABS: Glucose,Whole Blood 150 mg/dL (75-99)
[2020-07-02] MEDS: INSULIN ASPART (NovoLOG) 100 UNIT/ML VIAL SQ SCH ×4 (06:31→22:05)
[2020-07-02] MEDS: NITROGLYCERIN OINT 1 INCH/GM PACKET TOPICAL SCH (06:31)
[2020-07-02 07:09] LABS: Basophils % (A) 0 %; Eosinophils % (A) 0 %; HCT 36.5 % (39.0-53.0); HGB 11.1 gm/dL (13.0-17.5); Hypochromasia Moderate; Lymphocytes # (A) 0.7 k/uL (1.0-4.8); Lymphocytes % (A) 5 %; MCH 24.8 pg (25.0-35.0); MCHC 30.3 g/dL (31.0-37.0); MCV 81.8 fL (80.0-100.0); Mean Platelet Volume 7.5; Monocytes # (A) 0.3 k/uL (0-1.0); Monocytes % (A) 2 %; Neutrophils # (A) 11.3 k/uL (1.3-7.7); Neutrophils % (A) 92 %; Platelet Count 291 k/uL (150-450); RBC 4.46 m/uL (4.30-5.90); RDW 15.5 % (11.5-15.5); WBC 12.4 k/uL (3.8-10.6)
[2020-07-02 07:24] LABS: African American GFR (CKD) >90 (>60 ml/min/1.73 sqM); Anion Gap 6 mmol/L; Blood Urea Nitrogen 19 mg/dL (9-20); Calcium 8.2 mg/dL (8.4-10.2); Carbon Dioxide 29 mmol/L (22-30); Chloride 102 mmol/L (98-107); Cholesterol 115 mg/dL (<200); Glucose 141 mg/dL (74-99); HDL Cholesterol 31 mg/dL (40-60); LDL Cholesterol,Calculated 73 mg/dL (0-99); Magnesium 1.5 mg/dL (1.6-2.3); Non-African American GFR(CKD) >90 (>60 ml/min/1.73 sqM); Potassium 3.4 mmol/L (3.5-5.1); Sodium 137 mmol/L (137-145); Triglycerides 54 mg/dL (<150)
[2020-07-02] MEDS: SYMBICORT 160-4.5 MCG INHALER INHALATION SCH ×2 (08:45→20:34)
--- NOTE | 2020-07-02 10:18 | P.CRDCN ---
History of Present Illness Consult date: 07/02/20 History of present illness: CHIEF COMPLAINT: NSTEMI, CHF HISTORY OF PRESENT ILLNESS: 50-year-old male with a history of hypertension, COPD, and coronary artery disease with recent stent placement who presented to the hospital secondary to shortness of breath and lower extremity edema. Patient follows in the office with Dr. Candelario. Patient underwent cardiac catheterization on 04/27/2020 revealing totally occluded RCA with stent placement. Patient states he was doing well post discharge. However he states he ran out of his Lasix and has not been taking it for approximately 7 days. He reports shortness of breath and increased swelling to his lower extremities. He states his scrotum also became swollen which prompted him to come to the emergency room for further evaluation. Patient states his shortness of breath has improved this morning. He also reports improvement in his scrotal edema. He denies chest pain or pressure. DIAGNOSTICS: EKG reveals sinus tachycardia with PVCs. Heart rate 105. Chest xray correlate for CHF with early interstitial pulmonary edema and small pleural effusions Laboratory data: WBC 12.4. Hemoglobin 11.1. Platelet count 291. Sodium 137. Potassium 3.4. BUN 19. Creatinine 0.84. Magnesium 1.5. Troponin 0.118. 0.103. 0.088. Troponins from April 2020 42.3. BNP 6830. Current home cardiac medications include Lasix 40 mg daily, lisinopril 40 mg daily, hydralazine 100 mg 3 times a day, Toprol-XL 100 mg daily, Plavix 75 mg daily, Lipitor 80 mg daily and aspirin 325 mg daily Echocardiogram completed in March 2020 revealed ejection fraction between 25 and 30%, LV wall hypokinesis, moderate mitral regurgitation, mild tricuspid regurgitation, and mild pulmonary hypertension REVIEW OF SYSTEMS: CONSTITUTIONAL: Denies fever or chills. HEENT: Denies blurred vision, vision changes, or eye pain. Denies hemoptysis CARDIOVASCULAR: Denies chest pain, orthopnea, PND or palpitations RESPIRATORY: Reports shortness of breath. GASTROINTESTINAL: Denies abdominal pain. Denies nausea or vomiting. HEMATOLOGIC: Denies bleeding disorders. GENITOURINARY: Denies any blood in urine. SKIN: Denies pruitis. Denies rash. PHYSICAL EXAM: VITAL SIGNS: Reviewed. GENERAL: Well-developed in no acute distress. HEENT: Head is normocephalic. Pupils are equal, round. Sclerae anicteric. Mucous membranes of the mouth are moist. Neck supple. No JVD or thyromegaly LUNGS: Respirations even and unlabored. Lungs with rales to bilateral bases HEART: Regular rate and rhythm. S1 and S2 heard. ABDOMEN: Soft. Nondistended. Nontender. EXTREMITIES: Normal range of motion. No clubbing or cyanosis. Peripheral pulses intact. 1+ bilateral lower extremity edema NEUROLOGIC: Awake and alert. Oriented x 3. ASSESSMENT: Acute exacerbation of systolic heart failure, EF 25-30%, BNP 6830 Coronary artery disease with previous stent to the RCA, April 2020 Abnormal troponins, suspect secondary oxygen supply and demand mismatch due to respiratory distress Hypertension COPD Nicotine dependence PLAN: Discontinue heparin drip Resume home cardiac medications Continue IV Lasix for another 24 hours. Anticipate transitioning to oral Lasix tomorrow Monitor kidney function Accurate I&O Daily weights Smoking cessation encouraged Further recommendations pending patient's course Nurse practitioner note has been reviewed by physician. Signing provider agrees with the documented findings, assessment, and plan of care. Past Medical History Past Medical History: Coronary Artery Disease (CAD), Chest Pain / Angina, COPD, GERD/Reflux, Hypertension, Myocardial Infarction ([place]), Osteoarthritis (OA), Rheumatoid Arthritis (RA) Additional Past Medical History / Comment(s): Opiate addiction remission since 2014. Last Myocardial Infarction Date:: 04/25/2020 History of Any Multi-Drug Resistant Organisms: None Reported Past Surgical History: Heart Catheterization With Stent Additional Past Surgical History / Comment(s): R foot reconstruction post crushing injury. Xience stent to RCA 04/25/2020 Past Anesthesia/Blood Transfusion Reactions: No Reported Reaction Date of Last Stent Placement:: 04/25/2020 Past Psychological History: Anxiety, Depression Smoking Status: Current every day smoker Past Alcohol Use History: None Reported Past Drug Use History: Opiates Additional Drug Use History / Comment(s): smokes 1/2 ppd - Past Family History Father Family Medical History: Hypertension Additional Family Medical History / Comment(s): PE Mother Family Medical History: No Reported History Medications and Allergies Home Medications Medication Instructions Recorded Confirmed Type FLUoxetine HCL [PROzac] 20 mg PO DAILY 04/25/20 07/01/20 History Furosemide [Lasix] 40 mg PO DAILY 04/25/20 07/01/20 History Metoprolol Succinate (ER) [Toprol 100 mg PO DAILY 04/25/20 07/01/20 History XL] clonazePAM [KlonoPIN] 2 mg PO TID PRN 04/25/20 07/01/20 History lamoTRIgine [LaMICtal] 200 mg PO DAILY 04/25/20 07/01/20 History lisinopriL 40 mg PO DAILY 04/25/20 07/01/20 History Aspirin 325 mg PO DAILY #30 tab 04/27/20 07/01/20 Rx Atorvastatin [Lipitor] 80 mg PO HS #30 tab 04/27/20 07/01/20 Rx Clopidogrel [Plavix] 75 mg PO DAILY #30 tab 04/27/20 07/01/20 Rx hydrALAZINE HCL [Apresoline] 100 mg PO TID #90 tab 04/27/20 07/01/20 Rx Allergies Allergy/AdvReac Type Severity Reaction Status Date / Time No Known Allergies Allergy Verified 07/01/20 12:18 Physical Exam Vitals: Vital Signs Temp Pulse Pulse Resp BP BP Pulse Ox 07/02/20 03:36 98.7 F 103 H 20 148/83 96 07/02/20 00:00 97.6 F 93 20 137/81 96 07/01/20 20:00 98.2 F 99 20 173/99 94 L 07/01/20 17:45 95 18 158/98 07/01/20 15:42 98 07/01/20 15:25 97.3 F L 88 18 162/97 98 07/01/20 15:22 97.3 F L 88 18 162/97 98 07/01/20 15:00 97.7 F 89 18 156/98 99 07/01/20 13:08 80 18 143/96 96 07/01/20 12:35 98.6 F 100 18 167/99 98 07/01/20 11:58 156/96 07/01/20 11:30 152/118 07/01/20 11:10 96 18 161/123 98 07/01/20 10:30 20 07/01/20 10:02 98 F 107 H 18 171/94 98 Intake and Output 07/01/20 07/02/20 07/02/20 22:59 06:59 14:59 Intake Total 835.5 90.056 Output Total 600 1550 400 Balance 235.5 -1459.944 -400 Intake: Intake, IV Titration 70.5 90.056 Amount Heparin Sod,Pork in 0.45% 70.5 90.056 NaCl 25,000 unit In 0.45 % NaCl 1 250ml.bag @ 11. 603 UNITS/KG/HR 10 mls/hr IV .Q24H [facility] Rx#: [id number] Oral 765 Output: Urine 600 1550 400 Other: Voiding Method Urinal Urinal # Voids 1 1 Weight 86.183 kg 106.3 kg Results 07/02/20 06:10 07/02/20 06:10 Cardiac Enzymes 07/01/20 07/01/20 07/01/20 Range/Units 10:34 10:34 13:48 AST 69 H (17-59) U/L Troponin I 0.118 H* 0.103 H* (0.000-0.034) ng/mL 07/01/20 Range/Units 16:43 AST (17-59) U/L Troponin I 0.088 H* (0.000-0.034) ng/mL Coagulation 07/01/20 07/01/20 07/02/20 Range/Units 10:34 17:55 01:19 PT 11.7 (9.0-12.0) sec APTT 23.1 35.5 H 38.1 H (22.0-30.0) sec 07/02/20 Range/Units 06:10 PT (9.0-12.0) sec APTT 62.7 H (22.0-30.0) sec Lipids 07/02/20 Range/Units 06:10 Triglycerides 54 (<150) mg/dL Cholesterol 115 (<200) mg/dL HDL Cholesterol 31 L (40-60) mg/dL CBC 07/01/20 07/02/20 Range/Units 10:34 06:10 WBC 10.1 12.4 H (3.8-10.6) k/uL RBC 4.61 4.46 (4.30-5.90) m/uL Hgb 11.6 L 11.1 L (13.0-17.5) gm/dL Hct 37.6 L 36.5 L (39.0-53.0) % Plt Count 315 291 (150-450) k/uL Comprehensive Metabolic Panel 07/01/20 07/02/20 Range/Units 10:34 06:10 Sodium 138 137 (137-145) mmol/L Potassium 3.6 3.4 L (3.5-5.1) mmol/L Chloride 106 102 (98-107) mmol/L Carbon Dioxide 27 29 (22-30) mmol/L BUN 20 19 (9-20) mg/dL Creatinine 0.95 0.84 (0.66-1.25) mg/dL Glucose 87 141 H (74-99) mg/dL Calcium 8.6 8.2 L (8.4-10.2) mg/dL AST 69 H (17-59) U/L ALT 115 H (4-49) U/L Alkaline Phosphatase 102 (38-126) U/L Total Protein 6.1 L (6.3-8.2) g/dL Albumin 3.5 (3.5-5.0) g/dL Current Medications Generic Name Dose Route Start Last Admin Trade Name Freq PRN Reason Stop Dose Admin Aspirin 325 mg 07/02/20 09:00 Aspirin PO DAILY [facility] Atorvastatin Calcium 80 mg 07/01/20 21:00 07/01/20 20:59 Lipitor PO 80 mg HS [facility] Administration Budesonide/Formoterol Fumarate 2 puff 07/01/20 20:00 07/02/20 08:45 Symbicort 160-4.5 Mcg Inhaler INHALATION Not Given RT-BID [facility] Clopidogrel Bisulfate 75 mg 07/02/20 09:00 Plavix PO DAILY [facility] Furosemide 40 mg 07/01/20 21:00 07/01/20 21:00 Lasix IV 40 mg Q12HR [facility] Administration Heparin Sodium (Porcine) 0 unit 07/01/20 18:56 07/02/20 03:00 Heparin IV 2,150 unit PER PROTOCOL PRN Administration Low PTT Protocol Hydralazine HCl 100 mg 07/01/20 16:00 07/01/20 20:59 Apresoline PO 100 mg TID [facility] Administration Heparin Sodium/Sodium Chloride 250 mls @ 10 mls/hr 07/01/20 12:00 07/02/20 03:01 25,000 unit/ Sodium Chloride IV 15.6 units/kg/hr .Q24H [facility] 13.445 mls/hr Titration Protocol 11.603 UNITS/KG/HR Magnesium Sulfate/Dextrose 1 100 mls @ 100 mls/hr 07/02/20 08:15 gm/ IV Solution IVPB 07/02/20 10:14 Q1H [facility] Insulin Aspart 0 unit 07/01/20 21:00 07/02/20 06:31 Novolog SQ 2 unit ACHS [facility] Administration Protocol Lamotrigine 200 mg 07/02/20 09:00 Lamictal PO DAILY [facility] Lisinopril 40 mg 07/02/20 09:00 Zestril PO DAILY [facility] Methylprednisolone Sodium Succinate 40 mg 07/01/20 14:00 07/01/20 21:00 Solu-Medrol IV 40 mg Q12HR [facility] Administration Metoprolol Succinate 100 mg 07/02/20 09:00 Toprol Xl PO DAILY [facility] Nitroglycerin 0.4 mg 07/01/20 11:56 Nitrostat SUBLINGUAL Q5M PRN Chest Pain Nitroglycerin 1 inch 07/01/20 12:00 07/02/20 06:31 Nitro-Bid Oint TOPICAL 1 inch Q6HR [facility] Administration Intake and Output 07/01/20 07/02/20 07/02/20 22:59 06:59 14:59 Intake Total 835.5 90.056 Output Total 600 1550 400 Balance 235.5 -1459.944 -400 Intake: Intake, IV Titration 70.5 90.056 Amount Heparin Sod,Pork in 0.45% 70.5 90.056 NaCl 25,000 unit In 0.45 % NaCl 1 250ml.bag @ 11. 603 UNITS/KG/HR 10 mls/hr IV .Q24H [facility] Rx#: [id number] Oral 765 Output: Urine 600 1550 400 Other: Voiding Method Urinal Urinal # Voids 1 1 Weight 86.183 kg 106.3 kg 07/02/20 06:10 07/02/20 06:10
[2020-07-02] MEDS: lisinopriL 20 MG TAB PO SCH (11:05)
[2020-07-02] MEDS: lamoTRIgine 100 MG TAB PO SCH (11:05)
[2020-07-02] MEDS: methylPREDNISolone SOD SUCCI 40 MG/ML 1 ML VIAL IV SCH (11:05)
[2020-07-02] MEDS: MAGNESIUM SULFATE-D5W PMX 1 GM in DEXTROSE/WATER 1 100ML.BAG IVPB SCH ×2 (11:06→14:36)
[2020-07-02] MEDS: CLOPIDOGREL 75 MG TAB PO SCH (11:06)
[2020-07-02] MEDS: FUROSEMIDE 10 MG/ML 4 ML VIAL IV SCH ×2 (11:06→22:05)
[2020-07-02] MEDS: hydrALAZINE HCL 50 MG TAB PO SCH ×3 (11:06→22:05)
[2020-07-02] MEDS: ASPIRIN 325 MG TAB PO SCH (11:06)
[2020-07-02] MEDS: METOPROLOL SUCCINATE (ER) 100 MG TAB.ER.24H PO SCH (11:06)
[2020-07-02 11:38] LABS: Hemoglobin A1C 6.3 % (4.0-6.0)
[2020-07-02 11:46] LABS: Glucose,Whole Blood 137 mg/dL (75-99)
[2020-07-02 16:53] LABS: Glucose,Whole Blood 250 mg/dL (75-99)
--- NOTE | 2020-07-02 17:34 | P.PN ---
Subjective This is a pleasant 50 years old male with past medical history of coronary artery disease status post cardiac cath on 04/25/20 showing acute occluded right coronary artery status post angioplasty. Hypertension, rheumatoid arthritis, osteoarthritis, GERD, COPD. Presents because of leg swelling for 4-5 days with little dyspnea. With no chest pain and rectal cough. No abdominal pain, no change in his urine or bowel habits. 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 He states that he just got his insurance vitals looks stable , bp on the high side, CBC, BMP, INR, liver enzymes are unremarkable. Liver enzymes are slightly elevated with AST 69 and ALT 115, troponin is elevated at 0.118, which is significantly less than couple months ago at 42.3 EKG showing sinus tachycardia at 105 with frequent PVCs. Chest x-ray: CHF with pulmonary edema On admission he received aspirin and Lasix 80 mg IV and was started on heparin drip. With cardiology consult He still smokes about half pack per day, he denies alcohol or illicit drugs 07/02/20 Patient is awake and alert, he denies chest pain, he did not feel much improvement in his breathing however he was breathing quietly, hemodynamically stable and saturating at 90 No coughing or phlegm, he is in room air. Cardiology evaluated the patient, recommended to start heparin drip and to continue IV Lasix Patient is counseled about compliance Objective - Vital Signs Vital signs: Vital Signs Temp 97.3 F L 07/02/20 08:00 Pulse 94 07/02/20 12:00 Resp 18 07/02/20 12:00 BP 152/99 07/02/20 12:00 Pulse Ox 95 07/02/20 12:00 Intake & Output 07/01/20 07/02/20 07/02/20 18:59 06:59 18:59 Intake Total 225 700.556 222 Output Total 2150 1000 Balance 225 -1449.444 -778 Weight 86.183 kg 106.3 kg Intake: Intake, IV Titration 160.556 Amount Heparin Sod,Pork in 0.45% 160.556 NaCl 25,000 unit In 0.45 % NaCl 1 250ml.bag @ 11. 603 UNITS/KG/HR 10 mls/hr IV .Q24H [facility] Rx#: [id number] Oral 225 540 222 Output: Urine 2150 1000 Other: Voiding Method Urinal Urinal # Voids 1 - Exam -GENERAL: The patient is alert and oriented x3, not in any acute distress. Obese HEENT: Pupils are round and equally reacting to light. EOMI. No scleral icterus. No conjunctival pallor. Normocephalic, atraumatic. No pharyngeal erythema. No thyromegaly. CARDIOVASCULAR: S1 and S2 present. No murmurs, rubs, or gallops. PULMONARY: Chest is clear to auscultation, no wheezing or crackles. ABDOMEN: Soft, nontender, nondistended, normoactive bowel sounds. No palpable organomegaly. MUSCULOSKELETAL: No joint swelling or deformity. -EXTREMITIES: No cyanosis, clubbing, or . Bilateral pitting leg edema NEUROLOGICAL: Gross neurological examination did not reveal any focal deficits. SKIN: No rashes. no petechiae. - Labs CBC & Chem 7: 07/02/20 06:10 07/02/20 06:10 Labs: Abnormal Lab Results - Last 24 Hours (Table) 07/01/20 07/01/20 07/01/20 Range/Units 16:43 17:55 20:35 WBC (3.8-10.6) k/uL Hgb (13.0-17.5) gm/dL Hct (39.0-53.0) % MCH (25.0-35.0) pg MCHC (31.0-37.0) g/dL Neutrophils # (1.3-7.7) k/uL Lymphocytes # (1.0-4.8) k/uL APTT 35.5 H (22.0-30.0) sec Potassium (3.5-5.1) mmol/L Glucose (74-99) mg/dL POC Glucose (mg/dL) 179 H (75-99) mg/dL Hemoglobin A1c (4.0-6.0) % Calcium (8.4-10.2) mg/dL Magnesium (1.6-2.3) mg/dL Troponin I 0.088 H* (0.000-0.034) ng/mL HDL Cholesterol (40-60) mg/dL 07/02/20 07/02/20 07/02/20 Range/Units 01:19 06:08 06:10 WBC (3.8-10.6) k/uL Hgb (13.0-17.5) gm/dL Hct (39.0-53.0) % MCH (25.0-35.0) pg MCHC (31.0-37.0) g/dL Neutrophils # (1.3-7.7) k/uL Lymphocytes # (1.0-4.8) k/uL APTT 38.1 H (22.0-30.0) sec Potassium (3.5-5.1) mmol/L Glucose (74-99) mg/dL POC Glucose (mg/dL) 150 H (75-99) mg/dL Hemoglobin A1c 6.3 H (4.0-6.0) % Calcium (8.4-10.2) mg/dL Magnesium (1.6-2.3) mg/dL Troponin I (0.000-0.034) ng/mL HDL Cholesterol (40-60) mg/dL 07/02/20 07/02/20 07/02/20 Range/Units 06:10 06:10 06:10 WBC 12.4 H (3.8-10.6) k/uL Hgb 11.1 L (13.0-17.5) gm/dL Hct 36.5 L (39.0-53.0) % MCH 24.8 L (25.0-35.0) pg MCHC 30.3 L (31.0-37.0) g/dL Neutrophils # 11.3 H (1.3-7.7) k/uL Lymphocytes # 0.7 L (1.0-4.8) k/uL APTT 62.7 H (22.0-30.0) sec Potassium 3.4 L (3.5-5.1) mmol/L Glucose 141 H (74-99) mg/dL POC Glucose (mg/dL) (75-99) mg/dL Hemoglobin A1c (4.0-6.0) % Calcium 8.2 L (8.4-10.2) mg/dL Magnesium 1.5 L (1.6-2.3) mg/dL Troponin I (0.000-0.034) ng/mL HDL Cholesterol 31 L (40-60) mg/dL 07/02/20 07/02/20 Range/Units 11:34 16:51 WBC (3.8-10.6) k/uL Hgb (13.0-17.5) gm/dL Hct (39.0-53.0) % MCH (25.0-35.0) pg MCHC (31.0-37.0) g/dL Neutrophils # (1.3-7.7) k/uL Lymphocytes # (1.0-4.8) k/uL APTT (22.0-30.0) sec Potassium (3.5-5.1) mmol/L Glucose (74-99) mg/dL POC Glucose (mg/dL) 137 H 250 H (75-99) mg/dL Hemoglobin A1c (4.0-6.0) % Calcium (8.4-10.2) mg/dL Magnesium (1.6-2.3) mg/dL Troponin I (0.000-0.034) ng/mL HDL Cholesterol (40-60) mg/dL Assessment and Plan Assessment: Acute and chronic systolic CHF Coronary artery disease noncompliance and nonadherence to therapy Nicotine dependence Hypertension Rheumatoid arthritis Osteoarthritis GERD COPD, with possible acute exacerbation depression and anxiety Plan: This is a pleasant 50 years old male with recent stent to the RCA presents with acute systolic CHF. Continue with Lasix. Monitor input and output. Cardiology consult. Continue with aspirin and Plavix. Patient is counseled about the importance of taking medication, risks including but not limited to are e xplained to him . Also continue with a bronchodilator, we'll have some steroids, short course Labs and medication were reviewed.. Continue same treatment. Continue with symptomatic treatment. Resume home medication. Monitor lytes and vitals. DVT and GI prophylaxis. Further recommendations of the clinical course of the patient DVT prophylaxis:s heparin GI Prophylaxis: Pepcid Prognosis is guarded
[2020-07-02] MEDS ORDERED: Potassium Replacement Protocol 1 EACH MISC MISCELLANE PRN (18:21)
[2020-07-02] MEDS ORDERED: Magnesium Replacement Protocol 1 EACH MISC MISCELLANE PRN (18:21)
[2020-07-02 20:11] LABS: Glucose,Whole Blood 179 mg/dL (75-99)
[2020-07-02] MEDS: HEPARIN SODIUM,PORCINE 5,000 UNIT/ML 1 ML VIAL SQ SCH (22:05)
[2020-07-02] MEDS: ATORVASTATIN 80 MG TAB PO SCH (22:05)
[2020-07-03 06:13] LABS: Glucose,Whole Blood 168 mg/dL (75-99)
[2020-07-03] MEDS: INSULIN ASPART (NovoLOG) 100 UNIT/ML VIAL SQ SCH ×2 (06:51→12:20)
[2020-07-03 06:55] LABS: Basophils % (A) 0 %; Eosinophils % (A) 0 %; HCT 37.1 % (39.0-53.0); HGB 11.5 gm/dL (13.0-17.5); Hypochromasia Moderate; Lymphocytes # (A) 1.4 k/uL (1.0-4.8); Lymphocytes % (A) 6 %; MCH 25.6 pg (25.0-35.0); MCV 82.4 fL (80.0-100.0); Mean Platelet Volume 7.6; Monocytes # (A) 1.4 k/uL (0-1.0); Monocytes % (A) 6 %; Neutrophils # (A) 21.9 k/uL (1.3-7.7); Neutrophils % (A) 87 %; Platelet Count 348 k/uL (150-450); RDW 15.6 % (11.5-15.5); WBC 25.3 k/uL (3.8-10.6)
[2020-07-03 07:18] LABS: African American GFR (CKD) >90 (>60 ml/min/1.73 sqM); Anion Gap 9 mmol/L; Blood Urea Nitrogen 22 mg/dL (9-20); Calcium 8.5 mg/dL (8.4-10.2); Carbon Dioxide 31 mmol/L (22-30); Chloride 97 mmol/L (98-107); Glucose 158 mg/dL (74-99); Magnesium 1.9 mg/dL (1.6-2.3); Non-African American GFR(CKD) >90 (>60 ml/min/1.73 sqM); Potassium 3.6 mmol/L (3.5-5.1); Sodium 137 mmol/L (137-145)
[2020-07-03] MEDS: SYMBICORT 160-4.5 MCG INHALER INHALATION SCH (07:36)
[2020-07-03] MEDS: lamoTRIgine 100 MG TAB PO SCH (09:58)
[2020-07-03] MEDS: CLOPIDOGREL 75 MG TAB PO SCH (09:58)
[2020-07-03] MEDS: ASPIRIN 325 MG TAB PO SCH (09:58)
[2020-07-03] MEDS: METOPROLOL SUCCINATE (ER) 100 MG TAB.ER.24H PO SCH (09:59)
[2020-07-03] MEDS: FUROSEMIDE 10 MG/ML 4 ML VIAL IV SCH (09:59)
[2020-07-03] MEDS: hydrALAZINE HCL 50 MG TAB PO SCH (09:59)
[2020-07-03] MEDS: lisinopriL 20 MG TAB PO SCH (09:59)
[2020-07-03] MEDS: HEPARIN SODIUM,PORCINE 5,000 UNIT/ML 1 ML VIAL SQ SCH (10:00)
[2020-07-03 10:14] VITALS: RESP 18
--- NOTE | 2020-07-03 11:49 | P.PN ---
Subjective Progress Note Date: 07/03/20 CHIEF COMPLAINT: NSTEMI, CHF HISTORY OF PRESENT ILLNESS: Patient examined at the bedside. He states his breathing has improved. He denies chest pain or shortness of breath. He reports improvement in his scrotal edema. He continues to have some lower extremity edema left worse than right. He remains on IV Lasix. Fluid balance over the last 24 hours is -2200 mL. Patient's WBC is up to 25 today. However he was receiving IV steroids yesterday. PHYSICAL EXAM: VITAL SIGNS: Reviewed. GENERAL: Well-developed in no acute distress. HEENT: Head is normocephalic. Pupils are equal, round. Sclerae anicteric. Mucous membranes of the mouth are moist. Neck supple. No JVD or thyromegaly LUNGS: Respirations even and unlabored. Lungs diminished at the bases. HEART: Regular rate and rhythm. S1 and S2 heard. ABDOMEN: Soft. Nondistended. Nontender. EXTREMITIES: Normal range of motion. No clubbing or cyanosis. Peripheral pulses intact. 1-2+ bilateral lower extremity edema, left worse than right. NEUROLOGIC: Awake and alert. Oriented x 3. ASSESSMENT: Acute exacerbation of systolic heart failure, EF 25-30%, BNP 6830 Coronary artery disease with previous stent to the RCA, April 2020 Abnormal troponins, suspect secondary oxygen supply and demand mismatch due to respiratory distress Hypertension COPD Nicotine dependence PLAN: Continue home cardiac medications Will continue IV Lasix for another 24 hours. Anticipate transitioning to oral Lasix tomorrow Monitor kidney function Accurate I&O Daily weights Smoking cessation encouraged Further recommendations pending patient's course Nurse practitioner note has been reviewed by physician. Signing provider agrees with the documented findings, assessment, and plan of care. Objective - Vital Signs Vital signs: Vital Signs Temp 98 F 07/03/20 08:00 Pulse 96 07/03/20 08:00 Resp 18 07/03/20 08:00 BP 161/103 07/03/20 08:00 Pulse Ox 97 07/03/20 08:00 Intake & Output 07/02/20 07/03/20 07/03/20 18:59 06:59 18:59 Intake Total 458 Output Total 1000 1700 Balance -542 -1700 Weight 107.8 kg Intake: Oral 458 Output: Urine 1000 1700 Other: Voiding Method Urinal - Labs CBC & Chem 7: 07/03/20 06:14 07/03/20 06:14 Labs: Abnormal Lab Results - Last 24 Hours (Table) 07/02/20 07/02/20 07/02/20 Range/Units 06:10 11:34 16:51 WBC (3.8-10.6) k/uL Hgb (13.0-17.5) gm/dL Hct (39.0-53.0) % RDW (11.5-15.5) % Neutrophils # (1.3-7.7) k/uL Monocytes # (0-1.0) k/uL Chloride (98-107) mmol/L Carbon Dioxide (22-30) mmol/L BUN (9-20) mg/dL Glucose (74-99) mg/dL POC Glucose (mg/dL) 137 H 250 H (75-99) mg/dL Hemoglobin A1c 6.3 H (4.0-6.0) % 07/02/20 07/03/20 07/03/20 Range/Units 20:10 06:12 06:14 WBC 25.3 H (3.8-10.6) k/uL Hgb 11.5 L (13.0-17.5) gm/dL Hct 37.1 L (39.0-53.0) % RDW 15.6 H (11.5-15.5) % Neutrophils # 21.9 H (1.3-7.7) k/uL Monocytes # 1.4 H (0-1.0) k/uL Chloride (98-107) mmol/L Carbon Dioxide (22-30) mmol/L BUN (9-20) mg/dL Glucose (74-99) mg/dL POC Glucose (mg/dL) 179 H 168 H (75-99) mg/dL Hemoglobin A1c (4.0-6.0) % 07/03/20 Range/Units 06:14 WBC (3.8-10.6) k/uL Hgb (13.0-17.5) gm/dL Hct (39.0-53.0) % RDW (11.5-15.5) % Neutrophils # (1.3-7.7) k/uL Monocytes # (0-1.0) k/uL Chloride 97 L (98-107) mmol/L Carbon Dioxide 31 H (22-30) mmol/L BUN 22 H (9-20) mg/dL Glucose 158 H (74-99) mg/dL POC Glucose (mg/dL) (75-99) mg/dL Hemoglobin A1c (4.0-6.0) %
[2020-07-03 11:59] LABS: Glucose,Whole Blood 105 mg/dL (75-99)
[2020-07-03 12:13] VITALS: BP 134/87; PULSE 84; TEMP 98.1
[2020-07-03] MEDS ORDERED: FUROSEMIDE 40 MG TAB PO SCH (16:00)
--- NOTE | 2020-07-04 00:38 | P.DS ---
Providers Date of admission: 07/01/20 11:56 Attending physician: Asif Marshall MD Consults: 07/01/20 11:56 Consult Physician Urgent Consulting Provider: [facility] Consult Reason/Comments: Non-STEMI, congestive heart failure Do you want consulting provider notified?: Yes Primary care physician: Stated None Hospital Course: Please note patient was not discharged but he left by signing AMA Diagnoses: Acute and chronic systolic CHF Worsening leukocytosis, could be due to the steroid effect. Rule out infection. Patient is to wait to check his WBC and he left AMA Coronary artery disease noncompliance and nonadherence to therapy Nicotine dependence Hypertension Rheumatoid arthritis Osteoarthritis GERD COPD, with possible acute exacerbation depression and anxiety, not an active issue Hospital course: This is a pleasant 50 years old male with past medical history of coronary artery disease status post cardiac cath on 04/25/20 showing acute occluded right coronary artery status post angioplasty. Hypertension, rheumatoid arthritis, osteoarthritis, GERD, COPD. Presents because of leg swelling for 4-5 days with little dyspnea. Found to have an acute CHF, physician allergist immunologist evaluated the patient and his been treated with intravenous Lasix, his swelling came down and his breathing improved, patient also received some Lasix for suspected COPD however it was stopped on 07/02, where he got last dose in the morning. However today his WBC jumped up from 12 get up to 25K, however no obvious source of an of infection could be identified Soap Drier Operator evaluated the patient and they cleared him for discharge When I went to see the patient in the room, he was already dressed up nicely and Well and waiting for his friend to come and pick him up The patient was still need to monitor his WBC however he refused to wait. I called his new PCP to want to follow-up with Dr. Olmedo, however there WAS closed as today is Labor Day, patient refused to go to another PCP who may can call this morning, also he refused to recheck his WBC to make sure it is trending down before discharge and the patient and he opted to leave AMA, patient states that he has people waiting for him to work on his apartment, he denies any suicidal ideation, no active depression symptoms and he looks a pleasant and calm. And he has plans to follow-up with his primary doctor and take his medication after his been counseled about the importance of compliance to therapy. Risks of leaving him a including but not limited to risk of worsening infection, organ dysfunction, sepsis and or and he verbalized understanding however refused to stay and he opted to leave. Based upon my evaluation patient has capacity to make decision Gen: patient is a AAOx3, no distress CVS: S1-S2, RRR, no murmur Lungs: B/L CTA, no wheezing Abdomen: soft, no distention, no tenderness, positive bowel sounds Extremity: no leg edema or induration Time spent more than 35 minutes Plan - Discharge Summary Discharge Rx Participant: Yes New Discharge Prescriptions: New hydrALAZINE HCL [Apresoline] 100 mg PO TID #30 tab Atorvastatin [Lipitor] 80 mg PO HS #30 tab Furosemide [Lasix] 40 mg PO BID@0900,1600 #60 tab Continue FLUoxetine HCL [PROzac] 20 mg PO DAILY clonazePAM [KlonoPIN] 2 mg PO TID PRN PRN Reason: Anxiety Atorvastatin [Lipitor] 80 mg PO HS #30 tab hydrALAZINE HCL [Apresoline] 100 mg PO TID #90 tab lamoTRIgine [LaMICtal] 200 mg PO DAILY #30 tab lisinopriL 40 mg PO DAILY #30 tab Clopidogrel [Plavix] 75 mg PO DAILY 30 Days #30 tab Metoprolol Succinate (ER) [Toprol XL] 100 mg PO DAILY #30 tab Aspirin 325 mg PO DAILY #30 tab Discontinued Furosemide [Lasix] 40 mg PO DAILY Discharge Medication List FLUoxetine HCL [PROzac] 20 mg PO DAILY 04/25/20 [History] clonazePAM [KlonoPIN] 2 mg PO TID PRN 04/25/20 [History] Atorvastatin [Lipitor] 80 mg PO HS #30 tab 04/27/20 [Rx] hydrALAZINE HCL [Apresoline] 100 mg PO TID #90 tab 04/27/20 [Rx] Aspirin 325 mg PO DAILY #30 tab 07/03/20 [Rx] Atorvastatin [Lipitor] 80 mg PO HS #30 tab 07/03/20 [Rx] Clopidogrel [Plavix] 75 mg PO DAILY 30 Days #30 tab 07/03/20 [Rx] Furosemide [Lasix] 40 mg PO BID@0900,1600 #60 tab 07/03/20 [Rx] Metoprolol Succinate (ER) [Toprol XL] 100 mg PO DAILY #30 tab 07/03/20 [Rx] hydrALAZINE HCL [Apresoline] 100 mg PO TID #30 tab 07/03/20 [Rx] lamoTRIgine [LaMICtal] 200 mg PO DAILY #30 tab 07/03/20 [Rx] lisinopriL 40 mg PO DAILY #30 tab 07/03/20 [Rx] Follow up Appointment(s)/Referral(s): None,Stated [Primary Care Provider] - 1-2 days Bowen Candelario MD [STAFF PHYSICIAN] - 2 Weeks Activity/Diet/Wound Care/Special Instructions: Cardiac rehab Discharge Disposition: Left Against Medical Advice
--- NOTE | 2020-07-06 12:22 | CDI ---
Documentation Clarification Form Date: 07/06/20 From: Jazzmine Whitley Phone: If you have a question about this query, please contact sAter Livingston, Tech Intern at [phone] between 8am and 5pm. Admit Date: 07/01/20 Discharge Date: 07/03/20 Patient Name: JOSE ARMENDARIZ Visit Number: [id number] ATTENTION: The Clinical Documentation Specialists (CDI) and [facility] Coding Staff appreciate your assistance in clarifying documentation. Please respond to the clarification below the line at the bottom and electronically sign. The CDI & [facility] Coding staff will review the response and follow-up if needed. Please note: Queries are made part of the Legal Health Record. If you have any questions, please contact the author of this message via ITS. Dear Dr. Bowen Candelario, Patient presented with troponin of: 0.103, 0.0888 Patient history/risk factors: HTN w CHF (acute on chronic systolic), pulmonary HTN, COPD, CAD w coronary artery stent, RA, OA, mitral and tricuspid regurgitation, GERD Clinical indicators: Abnormal troponins, suspect secondary oxygen supply and demand mismatch due to respiratory distress Treatment:Heparin drip dc'd, IV Lasix In your professional opinion, can you please specify the diagnosis, if any, indicated by the above clinical indicators and treatment? NSTEMI Type II [place] Acute coronary ischemia Other, please specify Unable to determine type 2 mi MTDD
== END 2020-07-03 13:35 | disposition left against medical advice (07) | DRG 282 ==
LOC: EC 09:58 → 3SCARD 11:56
PROVIDERS: ADMIT Internal Medicine; ATTEND Internal Medicine
DX: I11.0 Hypertensive heart disease with heart failure (principal); I21.A1 Myocardial infarction type 2; I27.20 Pulmonary hypertension, unspecified; I50.23 Acute on chronic systolic (congestive) heart failure; D72.829 Elevated white blood cell count, unspecified; J44.9 Chronic obstructive pulmonary disease, unspecified; I25.10 Atherosclerotic heart disease of native coronary artery without angina pectoris; F11.21 Opioid dependence, in remission; M06.9 Rheumatoid arthritis, unspecified; Z91.19 Patient's noncompliance with other medical treatment and regimen; I08.1 Rheumatic disorders of both mitral and tricuspid valves; I49.3 Ventricular premature depolarization; K21.9 Gastro-esophageal reflux disease without esophagitis; T38.0X5A Adverse effect of glucocorticoids and synthetic analogues, initial encounter; I25.2 Old myocardial infarction; N50.89 Other specified disorders of the male genital organs; M19.90 Unspecified osteoarthritis, unspecified site; F17.210 Nicotine dependence, cigarettes, uncomplicated; Z71.6 Tobacco abuse counseling; Z79.82 Long term (current) use of aspirin; Z79.02 Long term (current) use of antithrombotics/antiplatelets; Z79.899 Other long term (current) drug therapy; Z95.5 Presence of coronary angioplasty implant and graft; Z87.39 Personal history of other diseases of the musculoskeletal system and connective tissue; Z98.890 Other specified postprocedural states; Z86.59 Personal history of other mental and behavioral disorders; Z82.49 Family history of ischemic heart disease and other diseases of the circulatory system
CPT/HCPCS: 36415; 71046; 80048; 80053; 80061; 83036; 83605; 83735; 83880; 84484; 85025; 85610; 85730; 93005; 94640; 96365; 96366; 96375; 96376; 99291

== ENCOUNTER 2020-11-02 17:19 | Inpatient (IN) | payer OTHER ==
[2020-11-02] MEDS ORDERED: IPRATROPIUM 0.5 MG/2.5 ML NEBU INHALATION STA (17:21)
[2020-11-02] MEDS ORDERED: ALBUTEROL NEBULIZED 2.5 MG/3 ML INHALATION STA (17:21)
--- NOTE | 2020-11-02 17:24 | ED ---
General Adult HPI - General Stated complaint: EVA Time Seen by Provider: 11/02/20 17:21 Source: patient, RN notes reviewed, old records reviewed Limitations: physical limitation - History of Present Illness Initial comments: 42-year-old male history of CAD, CHF, COPD presenting with worsening cough and d yspnea over the past several days. History is limited as the patient was transported by EMS on CPAP. He is been using increasing amounts of supplemental oxygen at home over the past 2 days. He does report a cough. He denies fever. He denies central chest pain. History limited secondary to severe respiratory distress. - Related Data Home Medications Medication Instructions Recorded Confirmed FLUoxetine HCL [PROzac] 20 mg PO DAILY 04/25/20 11/02/20 Albuterol Inhaler [Ventolin Hfa 2 puff INHALATION RT-QID PRN 11/02/20 11/02/20 Inhaler] buPROPion SR [Wellbutrin Sr] 150 mg PO BID 11/02/20 11/02/20 Previous Rx's Medication Instructions Recorded hydrALAZINE HCL [Apresoline] 100 mg PO TID #90 tab 04/27/20 Aspirin 325 mg PO DAILY #30 tab 07/03/20 Atorvastatin [Lipitor] 80 mg PO HS #30 tab 07/03/20 Clopidogrel [Plavix] 75 mg PO DAILY 30 Days #30 tab 07/03/20 Furosemide [Lasix] 40 mg PO BID@0900,1600 #60 tab 07/03/20 Metoprolol Succinate (ER) [Toprol 100 mg PO DAILY #30 tab 07/03/20 XL] lamoTRIgine [LaMICtal] 200 mg PO DAILY #30 tab 07/03/20 lisinopriL 40 mg PO DAILY #30 tab 07/03/20 Allergies Allergy/AdvReac Type Severity Reaction Status Date / Time No Known Allergies Allergy Verified 11/02/20 18:12 Review of Systems ROS Statement: Those systems with pertinent positive or pertinent negative responses have been documented in the HPI. ROS Other: All systems not noted in ROS Statement are negative. Past Medical History Past Medical History: Coronary Artery Disease (CAD), Chest Pain / Angina, COPD, GERD/Reflux, Hypertension, Myocardial Infarction (AL), Osteoarthritis (OA), Rheumatoid Arthritis (RA) Additional Past Medical History / Comment(s): Opiate addiction remission since 2014. Last Myocardial Infarction Date:: 04/25/2020 History of Any Multi-Drug Resistant Organisms: None Reported Past Surgical History: Heart Catheterization With Stent Additional Past Surgical History / Comment(s): R foot reconstruction post crushing injury. Xience stent to RCA 04/25/2020 Past Anesthesia/Blood Transfusion Reactions: No Reported Reaction Date of Last Stent Placement:: 04/25/2020 Past Psychological History: Anxiety, Depression Smoking Status: Current every day smoker Past Alcohol Use History: None Reported Past Drug Use History: Opiates Additional Drug Use History / Comment(s): smokes 1/2 ppd - Past Family History Father Family Medical History: Hypertension Additional Family Medical History / Comment(s): PE Mother Family Medical History: No Reported History General Exam General appearance: alert, in distress Head exam: Present: atraumatic, normocephalic Eye exam: Present: normal appearance, PERRL ENT exam: Present: normal exam Neck exam: Present: normal inspection. Absent: tenderness, meningismus Respiratory exam: Present: respiratory distress, wheezes, rhonchi, accessory muscle use, decreased breath sounds Cardiovascular Exam: Present: normal rhythm, tachycardia GI/Abdominal exam: Present: soft. Absent: distended, tenderness, guarding, rebound Neurological exam: Present: alert, oriented X3. Absent: motor sensory deficit Psychiatric exam: Present: anxious Skin exam: Present: warm, intact. Absent: cyanosis, diaphoretic Course Vital Signs 11/02/20 11/02/20 11/02/20 17:23 17:30 17:39 Temperature 98.8 F Pulse Rate 122 H 118 H 125 H Respiratory 20 20 Rate Blood Pressure 199/131 219/161 O2 Sat by Pulse 100 100 Oximetry 11/02/20 11/02/20 17:56 18:34 Temperature Pulse Rate 126 H 124 H Respiratory 20 Rate Blood Pressure 202/127 O2 Sat by Pulse 100 Oximetry - Reevaluation(s) Reevaluation #1: 11/02/20 18:02 Patient had been given to be viral and 125 mg of Solu-Medrol prior to arrival. EKG Findings - EKG Comments: EKG Findings:: Sinus tachycardia, rate of 122, WA interval 152, QRS duration 102, QTC 481, no ST segment elevation. Medical Decision Making - Medical Decision Making 42-year-old male presenting with severe respiratory distress. Patient had been placed on CPAP by EMS is continued on BiPAP in the emergency department. He is very hypertensive with coarse breath sounds bilaterally. Chest x-ray confirming pulmonary edema and CHF. He started on Lasix, nitroglycerin and continued on BiPAP. He has leukocytosis, hemoglobin 12.3 which is stable. He has a lactic acid of 3.2 which I suspect is from hypoxia, not sepsis or hypovolemia. Stable kidney function. He does have a significantly elevated bilirubin, as well as transaminitis with a bili of 2.3, AST of 1173 and an ALT of 1000. This may be related to congestion as the patient denies abdominal pain,, denies abdominal pain, there is no tenderness on exam. I will obtain an ultrasound these results are pending. He has an elevated troponin and an elevated BNP consistent with C HF. He is started on heparin case is discussed with both the admitting physician Dr. Palacio and the junior systems analyst Dr. Reeves. Additionally cardiology will be placed on consult. - Lab Data Result diagrams: 11/02/20 17:30 11/02/20 17:54 Lab Results 11/02/20 11/02/20 11/02/20 Range/Units 17:30 17:54 17:54 WBC 13.2 H (3.8-10.6) k/uL RBC 4.65 (4.30-5.90) m/uL Hgb 12.3 L (13.0-17.5) gm/dL Hct 39.1 (39.0-53.0) % MCV 84.1 (80.0-100.0) fL MCH 26.5 (25.0-35.0) pg MCHC 31.4 (31.0-37.0) g/dL RDW 19.2 H (11.5-15.5) % Plt Count 362 (150-450) k/uL MPV 7.4 Neutrophils % 76 % Lymphocytes % 13 % Monocytes % 8 % Eosinophils % 0 % Basophils % 0 % Neutrophils # 10.0 H (1.3-7.7) k/uL Lymphocytes # 1.7 (1.0-4.8) k/uL Monocytes # 1.1 H (0-1.0) k/uL Eosinophils # 0.1 (0-0.7) k/uL Basophils # 0.1 (0-0.2) k/uL Manual Slide Review Performed Hypochromasia Slight Anisocytosis Slight Microcytosis Slight PT 14.3 H (9.0-12.0) sec INR 1.4 H (<1.2) APTT 22.0 (22.0-30.0) sec VBG pH (7.31-7.41) VBG pCO2 (37-51) mmHg VBG HCO3 (24-28) mmol/L Sodium 135 L (137-145) mmol/L Potassium 5.1 (3.5-5.1) mmol/L Chloride 98 (98-107) mmol/L Carbon Dioxide 28 (22-30) mmol/L Anion Gap 9 mmol/L BUN 23 H (9-20) mg/dL Creatinine 1.02 (0.66-1.25) mg/dL Est GFR (CKD-EPI)AfAm >90 (>60 ml/min/1.73 sqM) Est GFR (CKD-EPI)NonAf 87 (>60 ml/min/1.73 sqM) Glucose 142 H (74-99) mg/dL Plasma Lactic Acid Cali (0.7-2.0) mmol/L Calcium 9.6 (8.4-10.2) mg/dL Magnesium 1.9 (1.6-2.3) mg/dL Total Bilirubin 2.3 H (0.2-1.3) mg/dL AST 1173 H (17-59) U/L ALT 1007 H (4-49) U/L Alkaline Phosphatase 146 H (38-126) U/L Troponin I (0.000-0.034) ng/mL NT-Pro-B Natriuret Pep pg/mL Total Protein 7.3 (6.3-8.2) g/dL Albumin 4.2 (3.5-5.0) g/dL Coronavirus (PCR) (Not Detectd) 11/02/20 11/02/20 11/02/20 Range/Units 17:54 17:54 17:54 WBC (3.8-10.6) k/uL RBC (4.30-5.90) m/uL Hgb (13.0-17.5) gm/dL Hct (39.0-53.0) % MCV (80.0-100.0) fL MCH (25.0-35.0) pg MCHC (31.0-37.0) g/dL RDW (11.5-15.5) % Plt Count (150-450) k/uL MPV Neutrophils % % Lymphocytes % % Monocytes % % Eosinophils % % Basophils % % Neutrophils # (1.3-7.7) k/uL Lymphocytes # (1.0-4.8) k/uL Monocytes # (0-1.0) k/uL Eosinophils # (0-0.7) k/uL Basophils # (0-0.2) k/uL Manual Slide Review Hypochromasia Anisocytosis Microcytosis PT (9.0-12.0) sec INR (<1.2) APTT (22.0-30.0) sec VBG pH (7.31-7.41) VBG pCO2 (37-51) mmHg VBG HCO3 (24-28) mmol/L Sodium (137-145) mmol/L Potassium (3.5-5.1) mmol/L Chloride (98-107) mmol/L Carbon Dioxide (22-30) mmol/L Anion Gap mmol/L BUN (9-20) mg/dL Creatinine (0.66-1.25) mg/dL Est GFR (CKD-EPI)AfAm (>60 ml/min/1.73 sqM) Est GFR (CKD-EPI)NonAf (>60 ml/min/1.73 sqM) Glucose (74-99) mg/dL Plasma Lactic Acid Cali 3.2 H* (0.7-2.0) mmol/L Calcium (8.4-10.2) mg/dL Magnesium (1.6-2.3) mg/dL Total Bilirubin (0.2-1.3) mg/dL AST (17-59) U/L ALT (4-49) U/L Alkaline Phosphatase (38-126) U/L Troponin I 0.098 H* (0.000-0.034) ng/mL NT-Pro-B Natriuret Pep 6750 pg/mL Total Protein (6.3-8.2) g/dL Albumin (3.5-5.0) g/dL Coronavirus (PCR) (Not Detectd) 11/02/20 11/02/20 Range/Units 17:54 17:54 WBC (3.8-10.6) k/uL RBC (4.30-5.90) m/uL Hgb (13.0-17.5) gm/dL Hct (39.0-53.0) % MCV (80.0-100.0) fL MCH (25.0-35.0) pg MCHC (31.0-37.0) g/dL RDW (11.5-15.5) % Plt Count (150-450) k/uL MPV Neutrophils % % Lymphocytes % % Monocytes % % Eosinophils % % Basophils % % Neutrophils # (1.3-7.7) k/uL Lymphocytes # (1.0-4.8) k/uL Monocytes # (0-1.0) k/uL Eosinophils # (0-0.7) k/uL Basophils # (0-0.2) k/uL Manual Slide Review Hypochromasia Anisocytosis Microcytosis PT (9.0-12.0) sec INR (<1.2) APTT (22.0-30.0) sec VBG pH 7.43 H (7.31-7.41) VBG pCO2 39 (37-51) mmHg VBG HCO3 25 (24-28) mmol/L Sodium (137-145) mmol/L Potassium (3.5-5.1) mmol/L Chloride (98-107) mmol/L Carbon Dioxide (22-30) mmol/L Anion Gap mmol/L BUN (9-20) mg/dL Creatinine (0.66-1.25) mg/dL Est GFR (CKD-EPI)AfAm (>60 ml/min/1.73 sqM) Est GFR (CKD-EPI)NonAf (>60 ml/min/1.73 sqM) Glucose (74-99) mg/dL Plasma Lactic Acid Cali (0.7-2.0) mmol/L Calcium (8.4-10.2) mg/dL Magnesium (1.6-2.3) mg/dL Total Bilirubin (0.2-1.3) mg/dL AST (17-59) U/L ALT (4-49) U/L Alkaline Phosphatase (38-126) U/L Troponin I (0.000-0.034) ng/mL NT-Pro-B Natriuret Pep pg/mL Total Protein (6.3-8.2) g/dL Albumin (3.5-5.0) g/dL Coronavirus (PCR) Not Detected (Not Detectd) Critical Care Time Critical Care Time: Yes Total Critical Care Time: 35 Disposition Clinical Impression: Non-STEMI (non-ST elevated myocardial infarction), Acute pulmonary edema, Transaminitis Disposition: ADMITTED IP TO THIS [facility] Condition: Serious Is patient prescribed a controlled substance at d/c from ED?: No Referrals: Otf Valentine [Primary Care Provider] - 1-2 days Decision to Admit Reason: Admit from EC Decision Date: 11/02/20 Decision Time: 18:53
[2020-11-02 17:46] LABS: VBG PH 7.43 (7.31-7.41)
[2020-11-02] MEDS ORDERED: NITROGLYCERIN SL TABS 0.4 MG TAB SUBLINGUAL PRN (17:49)
[2020-11-02 17:54] LABS: African American GFR (CKD) >90 (>60 ml/min/1.73 sqM); Albumin 4.2 g/dL (3.5-5.0); Alkaline Phosphatase 146 U/L (38-126); Blood Urea Nitrogen 23 mg/dL (9-20); Calcium 9.6 mg/dL (8.4-10.2); Carbon Dioxide 28 mmol/L (22-30); Chloride 98 mmol/L (98-107); Glucose 142 mg/dL (74-99); Magnesium 1.9 mg/dL (1.6-2.3); Non-African American GFR(CKD) 87 (>60 ml/min/1.73 sqM); Total Bilirubin 2.3 mg/dL (0.2-1.3); Total Protein 7.3 g/dL (6.3-8.2)
[2020-11-02 17:56] LABS: Anisocytosis Slight; Basophils # (A) 0.1 k/uL (0-0.2); Basophils % (A) 0 %; Eosinophils # (A) 0.1 k/uL (0-0.7); Eosinophils % (A) 0 %; HCT 39.1 % (39.0-53.0); HGB 12.3 gm/dL (13.0-17.5); Hypochromasia Slight; Lymphocytes # (A) 1.7 k/uL (1.0-4.8); Lymphocytes % (A) 13 %; MCH 26.5 pg (25.0-35.0); MCHC 31.4 g/dL (31.0-37.0); MCV 84.1 fL (80.0-100.0); Mean Platelet Volume 7.4; Microcytosis Slight; Monocytes # (A) 1.1 k/uL (0-1.0); Monocytes % (A) 8 %; Neutrophils % (A) 76 %; Platelet Count 362 k/uL (150-450); RBC 4.65 m/uL (4.30-5.90); RDW 19.2 % (11.5-15.5); WBC 13.2 k/uL (3.8-10.6)
[2020-11-02] MEDS ORDERED: NITROGLYCERIN-D5W PMX 50 MG in DEXTROSE/WATER 1 250ML.BAG IV ONE (18:01)
[2020-11-02] MEDS ORDERED: FUROSEMIDE 10 MG/ML 4 ML VIAL IV STA (18:02)
[2020-11-02 18:05] LABS: Anion Gap 9 mmol/L; Potassium 5.1 mmol/L (3.5-5.1); Sodium 135 mmol/L (137-145)
[2020-11-02 18:06] LABS: ALT 1007 U/L (4-49); AST 1173 U/L (17-59)
--- NOTE | 2020-11-02 18:08 | XR ---
EXAMINATION: XR chest 1V portable DATE AND TIME: 11/02/2020 5:49 PM CLINICAL INDICATION: PHH; azam TECHNIQUE: AP upright portable COMPARISON: 07/01/2020 FINDINGS: The prior study shows evidence of mild interstitial phase pulmonary edema. The bilateral lung inflation pattern on the present examination is moderately worse than the prior st udy. The current examination there is dominant bilateral silhouetting of the pulmonary vasculature by a fine reticular pattern of increased density, with concurrent scattered zones of coalescent opacity . These radiographic findings are consistent with a clinical differential of interstitial phase pulmo nary edema with zones of alveolar phase pulmonary edema vs. possibility of atypical pneumonia. This l atter differential would appear probable only if high pretest probability existed for pneumonia. Cardiac silhouette is mild-moderately enlarged, unchanged from the prior study. No abnormal gas collections. No definite acute bony or soft tissue findings. IMPRESSION: Abnormal lung parenchymal examination.
[2020-11-02] MEDS ORDERED: HEPARIN SODIUM,PORCINE 5,000 UNIT/ML 1 ML VIAL IV ONE (18:31)
[2020-11-02 18:32] LABS: INR 1.4 (<1.2); Prothrombin Time 14.3 sec (9.0-12.0)
[2020-11-02] MEDS ORDERED: MORPHINE SULFATE 2 MG/ML SYRINGE IV PRN (18:48)
[2020-11-02] MEDS ORDERED: NALOXONE 0.4 MG/ML 1 ML VIAL IV PRN (18:48)
[2020-11-02] MEDS: HEPARIN SOD,PORK IN 0.45% NACL 25,000 UNIT in 0.45% NACL 1 250ML.BAG IV SCH (19:23)
[2020-11-02] MEDS: IPRATROPIUM-ALBUTEROL 3 ML NEB INHALATION SCH (19:46)
--- NOTE | 2020-11-02 20:08 | US ---
EXAMINATION TYPE: US gallbladder DATE OF EXAM: 11/02/2020 COMPARISON: CT CLINICAL HISTORY: Transaminitis. Transaminitis per order. Patient did not provide history. EXAM MEASUREMENTS: Liver Length: 17.75 cm Gallbladder Wall: 0.67 cm (top normal 0.3 cm thickness) CBD: Not seen. Right Kidney: 11.1 x 5.1 x 6.4 cm Prominently limited examination due to overlying gas and prominent body habitus. Pancreas: Limited visibility due to gas. Liver: Measures 17.75 cm in length, upper limits. Appears to have a coarse echotexture. Gallbladder: Minimal internal echoes seen versus artifact. Wall appears thickened and irregular carlos alberto uring 0.67 cm. Evidence for sonographic Salcedo's sign: No CBD: Not seen. Right Kidney: No hydronephrosis or masses seen. IMPRESSION: 1. Mildly limited examination. 2. Nonspecific gallbladder wall thickening (cholelithiasis not demonstrated). 3. Nonvisualization of the common bile duct.
[2020-11-02 20:50] LABS: Glucose,Whole Blood 143 mg/dL (75-99)
[2020-11-02] MEDS ORDERED: ATORVASTATIN 80 MG TAB PO SCH (23:00)
[2020-11-02] MEDS: METOPROLOL SUCCINATE (ER) 100 MG TAB.ER.24H PO SCH (23:40)
[2020-11-02] MEDS: FUROSEMIDE 10 MG/ML 4 ML VIAL IV SCH (23:43)
--- NOTE | 2020-11-03 00:14 | P.HPIM ---
History of Present Illness H&P Date: 11/02/20 Chief Complaint: shortness of breath 50 year old male with COPD on home oxygen, systolic chf with LVEF 25% patient comes in due to progressive SOB, that got worse over the past few days ,he is unable to provide detailed history , as he is still in respiratory distress on BIpap unable to remove it. but reports no chest pain , fever or chills, he does admit to increase coughing and increase SOB at rest despite using his home oxygen with not much benefit. he denies any leg swelling, denies any chest pain , nausea or vomiting , denies any abd pain , or bleeding he does admit to non compliance with his medications, as he ran out of some, and was unable to get a refill in time. his blood pressure in the ED was 219 /161 with MAP of 180, he was started on nitro drip and given lasix IV, currently blood pressure is 180/113 with MAP of 130 . this reflects good 25% drop of his initial blood pressure. currently continues on nitro drip , bipap and heparin drip as he was also suspected to have NSTEMI with elevated troponin with no acute ST changes on his EKG. liver enzymes were elevated gall bladder US was non conclusive of any pathology Review of Systems Pertinent positives as noted in HPI. All other systems were reviewed and are n egative limited though due to patient being on Bipap Past Medical History Past Medical History: Coronary Artery Disease (CAD), Chest Pain / Angina, COPD, GERD/Reflux, Hypertension, Myocardial Infarction ([place]), Osteoarthritis (OA), Rheumatoid Arthritis (RA) Additional Past Medical History / Comment(s): Opiate addiction remission since 2014. Last Myocardial Infarction Date:: 04/25/2020 History of Any Multi-Drug Resistant Organisms: None Reported Past Surgical History: Heart Catheterization With Stent Additional Past Surgical History / Comment(s): R foot reconstruction post crushing injury. Xience stent to RCA 04/25/2020 Past Anesthesia/Blood Transfusion Reactions: No Reported Reaction Date of Last Stent Placement:: 04/25/2020 Past Psychological History: Anxiety, Depression Smoking Status: Current every day smoker Past Alcohol Use History: None Reported Past Drug Use History: Opiates Additional Drug Use History / Comment(s): smokes 1/2 ppd - Past Family History Father Family Medical History: Hypertension Additional Family Medical History / Comment(s): PE Mother Family Medical History: No Reported History Medications and Allergies Home Medications Medication Instructions Recorded Confirmed Type FLUoxetine HCL [PROzac] 20 mg PO DAILY 04/25/20 11/02/20 History hydrALAZINE HCL [Apresoline] 100 mg PO TID #90 tab 04/27/20 11/02/20 Rx Aspirin 325 mg PO DAILY #30 tab 07/03/20 11/02/20 Rx Atorvastatin [Lipitor] 80 mg PO HS #30 tab 07/03/20 11/02/20 Rx Clopidogrel [Plavix] 75 mg PO DAILY 30 Days #30 tab 07/03/20 11/02/20 Rx Furosemide [Lasix] 40 mg PO BID@0900,1600 #60 tab 07/03/20 11/02/20 Rx Metoprolol Succinate (ER) [Toprol 100 mg PO DAILY #30 tab 07/03/20 11/02/20 Rx XL] lamoTRIgine [LaMICtal] 200 mg PO DAILY #30 tab 07/03/20 11/02/20 Rx lisinopriL 40 mg PO DAILY #30 tab 07/03/20 11/02/20 Rx Albuterol Inhaler [Ventolin Hfa 2 puff INHALATION RT-QID PRN 11/02/20 11/02/20 History Inhaler] buPROPion SR [Wellbutrin Sr] 150 mg PO BID 11/02/20 11/02/20 History Allergies Allergy/AdvReac Type Severity Reaction Status Date / Time No Known Allergies Allergy Verified 11/02/20 18:12 Physical Exam Vitals: Vital Signs Temp Pulse Resp BP Pulse Ox 11/02/20 20:21 108 H 20 174/101 100 11/02/20 20:16 107 H 20 170/106 100 11/02/20 20:11 112 H 20 179/109 100 11/02/20 20:05 112 H 20 190/122 100 11/02/20 20:00 116 H 11/02/20 19:56 111 H 20 185/126 100 11/02/20 19:47 113 H 11/02/20 19:45 118 H 20 190/133 100 11/02/20 19:40 113 H 20 196/126 100 11/02/20 19:33 115 H 20 192/135 100 11/02/20 18:34 124 H 20 202/127 100 11/02/20 17:56 126 H 11/02/20 17:39 125 H 20 219/161 100 11/02/20 17:30 118 H 11/02/20 17:23 98.8 F 122 H 20 199/131 100 Intake and Output 11/02/20 11/02/20 11/02/20 06:59 14:59 22:59 Intake Total 20.60 Output Total 1000 Balance -979.40 Intake: Intake, IV Titration 20.60 Amount Nitroglycerin-D5w Pmx 50 20.60 mg In Dextrose/Water 1 250ml.bag @ 10 MCG/MIN 3 mls/hr IV .Q24H [facility] Rx#: [id number] Output: Urine 1000 Other: # Voids 3 Weight 106 kg Constitutional: mild to moderate respiratory distress currently on bipap Eyes: Anicteric sclerae, moist conjunctiva, Pupils equal round reactive to light ENMT: NC/AT Oropharynx clear, no erythema, or exudates Neck: Supple, FROM, no masses, or JVD No carotid bruits No thyromegaly Lungs: diffuse crackles and decrease breath sounds on lung basis, no wheezing Clear to percussion respiratory distress with accessory muscle use currently on bipap Cardiovascular: Heart regular in rate and rhythm, No murmurs, gallops, or rubs No peripheral edema Abdominal: Soft Nontender, no guarding, rebound or rigidity Abdomen moving with respiration Normoactive bowel sounds No hepatomegaly, No splenomegaly No palpable mass No abdominal wall hernia noted Skin: Normal temperature, tone, texture, turgor No induration No subcutaneous nodules No rash, lesions No ulcers Extremities: No digital cyanosis No clubbing Pedal pulses intact and symmetrical Radial pulses intact and symmetrical No calf tenderness Psychiatric: Alert and oriented to person, place and time Appropriate affect fair judgement Neuro Muscles Strength 5/5 in all 4 extremities Sensation to light touch grossly present throughout Cranial nerves II-XII grossly intact No focal sensory deficits Lymphatics: no palpable cervical or supraclavicular , or inguinal lymph nodes Results CBC & Chem 7: 11/02/20 17:30 11/02/20 17:54 Labs: Abnormal Lab Results - Last 24 Hours (Table) 11/02/20 11/02/20 11/02/20 Range/Units 17:30 17:54 17:54 WBC 13.2 H (3.8-10.6) k/uL Hgb 12.3 L (13.0-17.5) gm/dL RDW 19.2 H (11.5-15.5) % Neutrophils # 10.0 H (1.3-7.7) k/uL Monocytes # 1.1 H (0-1.0) k/uL PT 14.3 H (9.0-12.0) sec INR 1.4 H (<1.2) VBG pH (7.31-7.41) Sodium 135 L (137-145) mmol/L BUN 23 H (9-20) mg/dL Glucose 142 H (74-99) mg/dL Plasma Lactic Acid Cali (0.7-2.0) mmol/L Total Bilirubin 2.3 H (0.2-1.3) mg/dL AST 1173 H (17-59) U/L ALT 1007 H (4-49) U/L Alkaline Phosphatase 146 H (38-126) U/L Troponin I (0.000-0.034) ng/mL 11/02/20 11/02/20 11/02/20 Range/Units 17:54 17:54 17:54 WBC (3.8-10.6) k/uL Hgb (13.0-17.5) gm/dL RDW (11.5-15.5) % Neutrophils # (1.3-7.7) k/uL Monocytes # (0-1.0) k/uL PT (9.0-12.0) sec INR (<1.2) VBG pH 7.43 H (7.31-7.41) Sodium (137-145) mmol/L BUN (9-20) mg/dL Glucose (74-99) mg/dL Plasma Lactic Acid Cali 3.2 H* (0.7-2.0) mmol/L Total Bilirubin (0.2-1.3) mg/dL AST (17-59) U/L ALT (4-49) U/L Alkaline Phosphatase (38-126) U/L Troponin I 0.098 H* (0.000-0.034) ng/mL 11/02/20 Range/Units 20:14 WBC (3.8-10.6) k/uL Hgb (13.0-17.5) gm/dL RDW (11.5-15.5) % Neutrophils # (1.3-7.7) k/uL Monocytes # (0-1.0) k/uL PT (9.0-12.0) sec INR (<1.2) VBG pH (7.31-7.41) Sodium (137-145) mmol/L BUN (9-20) mg/dL Glucose (74-99) mg/dL Plasma Lactic Acid Cali 2.3 H* (0.7-2.0) mmol/L Total Bilirubin (0.2-1.3) mg/dL AST (17-59) U/L ALT (4-49) U/L Alkaline Phosphatase (38-126) U/L Troponin I (0.000-0.034) ng/mL Assessment and Plan Assessment: acute on chronic hypoxic respiratory failure flash pulmonary edema acute on chronic systiolic congestive heart failure LVEF 25% malignant hypertension rule out NSTEMI hepatic passive congestion plan ICU admission nitro drip , goal to lower blood pressure over 4 hours by 25% , then resume homemeds heparin drip lasix IV tid supplemental oxygen as needed Bipap resume home cardiac meds , plavix , aspirin , Hold statin ( due to elevated liver enzymes) monitor liver enzymes PRN duoneb for SOB, history of COPD COVID negative Preformed a thorough record review from recent hospitalization patient had stenting of RCA april 2020, medical non compliance CODE STATUS:full code DVT prophylaxis: on heparin drip Discussed with: Patient, ER, RN Anticipated length of stay > than [address]: home A total of 75 minutes was spent on the care of this complex patient more than 50% of the time was spent in counseling and care coordination.
[2020-11-03] MEDS: HEPARIN SODIUM,PORCINE 5,000 UNIT/ML 1 ML VIAL IV PRN (02:34)
[2020-11-03] MEDS: NITROGLYCERIN-D5W PMX 50 MG in DEXTROSE/WATER 1 250ML.BAG IV SCH ×3 (03:03→17:28)
[2020-11-03 04:51] LABS: African American GFR (CKD) >90 (>60 ml/min/1.73 sqM); Albumin 3.7 g/dL (3.5-5.0); Alkaline Phosphatase 137 U/L (38-126); Anion Gap 6 mmol/L; Blood Urea Nitrogen 23 mg/dL (9-20); Calcium 8.7 mg/dL (8.4-10.2); Carbon Dioxide 34 mmol/L (22-30); Chloride 96 mmol/L (98-107); Glucose 157 mg/dL (74-99); Non-African American GFR(CKD) >90 (>60 ml/min/1.73 sqM); Potassium 4.1 mmol/L (3.5-5.1); Sodium 136 mmol/L (137-145); Total Bilirubin 1.7 mg/dL (0.2-1.3); Total Protein 6.6 g/dL (6.3-8.2)
[2020-11-03 05:04] LABS: Anisocytosis Slight; Basophils % (A) 0 %; Eosinophils % (A) 0 %; HCT 37.1 % (39.0-53.0); HGB 11.9 gm/dL (13.0-17.5); Hypochromasia Slight; Lymphocytes # (A) 1.1 k/uL (1.0-4.8); Lymphocytes % (A) 8 %; MCH 26.7 pg (25.0-35.0); MCHC 32.2 g/dL (31.0-37.0); MCV 83.1 fL (80.0-100.0); Mean Platelet Volume 7.5; Microcytosis Slight; Monocytes # (A) 0.3 k/uL (0-1.0); Monocytes % (A) 2 %; Neutrophils # (A) 12.6 k/uL (1.3-7.7); Neutrophils % (A) 89 %; Platelet Count 376 k/uL (150-450); RBC 4.46 m/uL (4.30-5.90); RDW 19.1 % (11.5-15.5); WBC 14.1 k/uL (3.8-10.6)
[2020-11-03] MEDS: IPRATROPIUM-ALBUTEROL 3 ML NEB INHALATION SCH ×4 (07:21→18:43)
[2020-11-03 07:48] LABS: ALT 1335 U/L (4-49); AST 1345 U/L (17-59)
[2020-11-03] MEDS: FUROSEMIDE 10 MG/ML 4 ML VIAL IV SCH ×2 (08:16→16:40)
[2020-11-03] MEDS: lisinopriL 20 MG TAB PO SCH (08:16)
[2020-11-03] MEDS: CLOPIDOGREL 75 MG TAB PO SCH (08:16)
[2020-11-03] MEDS: METOPROLOL SUCCINATE (ER) 100 MG TAB.ER.24H PO SCH (08:16)
[2020-11-03] MEDS: SPIRONOLACTONE 25 MG TAB PO SCH (08:18)
--- NOTE | 2020-11-03 08:18 | XR ---
EXAMINATION TYPE: XR chest 1V portable DATE OF EXAM: 11/03/2020 COMPARISON: 11/02/2020 INDICATION: ICU management TECHNIQUE: Single frontal view of the chest is obtained. FINDINGS: The heart size is probably prominent. The pulmonary vasculature is normal. Diffuse patchy infiltrate is present. This is nonspecific. Consider atypical pneumonia within the dif ferential. IMPRESSION: 1. Scattered nonspecific infiltrate bilaterally. Correlate for atypical pneumonia
[2020-11-03] MEDS ORDERED: ASPIRIN 325 MG TAB PO SCH (09:00)
[2020-11-03] MEDS: ASPIRIN 81 MG PO SCH (09:31)
--- NOTE | 2020-11-03 10:03 | CONS ---
CONSULTATION Mr. Wagner is a 50-year-old male with a history of chronic tobacco use, hypertension, hyperlipidemia, who in March of last year presented with an acute inferior wall myocardial infarction with totally occluded right coronary artery, underwent cardiac catheterization by Dr. Candelario and subsequently stenting of the RCA by Dr. Osei. The patient has been noncompliant with his medication. He was readmitted to the hospital in June of last year with shortness of breath and peripheral edema. He has stopped his medication. At that time he had mild troponin elevation that was thought to be related to a type 2 event. He presented at this time with symptoms of progressive dyspnea, cough, but no chest pain. He was noted to be severely hypertensive on presentation and had evidence of CHF. His echocardiogram in March of last year at time of his myocardial infarction showed an ejection fraction of 25% to 30% with segmental wall motion abnormality. At that time, moderate mitral regurgitation was noted. The patient denies any dizziness or palpitation. He has no syncope. No recent peripheral edema. No PND. No orthopnea. He has not been compliant with his medication. According to him, he has run out of some of his medications a few days ago. He is trying to cut down his smoking. He was supposed to be on aspirin once a day, Plavix 75 mg daily, lisinopril 40 mg daily, hydralazine 100 mg 3 times a day, metoprolol succinate 100 mg daily, Lasix 40 mg twice a day, Prozac, Plavix 75 mg daily, Lamictal, Lipitor 80 mg daily, aspirin and albuterol. He was markedly hypertensive on presentation. REVIEW OF SYSTEMS: RESPIRATORY SYSTEM: He has dyspnea on exertion and wheezing. He has cough. GI SYSTEM: No recent GI bleeding. No peptic ulcer disease. SYSTEM: No dysuria or hematuria. NERVOUS SYSTEM: No history of stroke or seizure. PHYSICAL EXAMINATION: He is a 50-year-old male, alert, oriented, no apparent distress. Blood pressure at this time 135/80 with the heart rate in the 90s. On presentation, his blood pressure was in the 200s with diastolic of about 100. He was tachycardic. HEAD: Normocephalic. EYES: Sclerae nonicteric. NECK: Good carotid upstroke. No bruit. LUNGS: With decreased air exchange. No wheezes. HEART: Regular rate and rhythm. S1, S2. No S3 with a systolic murmur. ABDOMEN: Soft, obese, nontender. EXTREMITIES: No significant edema. LAB DATA: Lab data revealed BUN and creatinine 23 and 0.93, potassium 4.1, hemoglobin of 11.9, white blood cell of 14.1. His plasma lactic acid on presentation was 3.2. His AST is 1173, total bilirubin to 2.3, ALT of 1007. Troponin of 0.098, 0.094. His NT proBNP was 6750. He had a gallbladder ultrasound that revealed nonspecific thickening of the gallbladder wall, but there was no clear demonstration of cholelithiasis. His EKG revealed a sinus tachycardia, evidence of inferior myocardial infarction with left ventricular hypertrophy. His chest x-ray showed evidence of CHF. He is feeling much better this morning. IMPRESSION: 1. Symptoms of acute progressive dyspnea consistent with congestive heart failure in a patient with known history of cardiomyopathy and noncompliance. 2. Abnormal chest x-ray could have an element of lung disease on top of it. 3. Prior history of coronary artery disease and stenting of the right coronary artery with mild troponin elevation most likely related to a type 2 cardiac event. I do not believe we are dealing with an acute myocardial infarction. At the time of his cardiac catheterization, his LAD and left circumflex were unremarkable. 4. Chronic tobacco use. 5. History of hypertension with hypertensive urgency on presentation. 6. Noncompliance. 7. Abnormal liver function test with elevated bilirubin, etiology unclear. His bilirubin has been normal in the past. Some of it could be related to congestion, although he has no clear evidence of right-sided failure at the time of my evaluation. RECOMMENDATION: From the cardiac standpoint, the patient has been re-initiated on his beta sloane and SHIVAM inhibitor. I will add to his regimen Aldactone. Will wean his IV nitroglycerin to off. I will continue the IV heparin for 24 hours. Aspirin and Plavix has been re- initiated. He will continue on IV Lasix. I will obtain a repeat echocardiogram. Will follow his symptoms and at this time will hold on the coronary angiography until he is stabilized and make the decision down the road if that needs to be done, although I see no evidence of acute coronary artery syndrome at this point. Thank you for this consult. We will follow with you. MMODL / IJN: [id number] / LUCY
--- NOTE | 2020-11-03 11:09 | ECHOF ---
Referral Reason:chf MEASUREMENTS -------- HEIGHT: 165.1 cm WEIGHT: 102.1 kg BP: RVIDd: 4.9 cm (< 3.3) IVSd: 1.5 cm (0.6 - 1.1) LVIDd: 5.7 cm (3.9 - 5.3) LVPWd: 1.3 cm (0.6 - 1.1) IVSs: 1.4 cm LVIDs: 5.5 cm LVPWs: 1.7 cm LAESV Index (A-L): 41.65 ml/m Ao Diam: 3.6 cm (2.0 - 3.7) AV Cusp: 2.0 cm (1.5 - 2.6) LA Diam: 4.0 cm (2.7 - 3.8) MV EXCURSION: 13.666 mm (> 18.000) MV EF SLOPE: 72 mm/s (70 - 150) EPSS: 1.9 cm MV E Deric: 0.73 m/s MV DecT: 108 ms MV A Deric: 0.49 m/s MV E/A Ratio: 1.48 RAP: 5.00 mmHg RVSP: 40.39 mmHg FINDINGS -------- Sinus rhythm. This was a techncally difficult study with suboptimal views, , Lumason utilized for enhancement of im ages. The left ventricular size is normal. Left ventricular wall thickness is normal. There is moderate global hypokinesis of LV . Overall left ventricular systolic function is moderate-severely impaire d with, an EF between 30 - 35 %. The right ventricle is moderately enlarged. LA is severely dilated >40 ml/m2 The right atrial size is normal. 5.0mg OF Lumason UTLIZED: 2 OR MORE WALL SEGMENTS NOT VISUALIZED. The aortic valve is trileaflet, and appears structurally normal. No aortic stenosis or regurgitation. Mild mitral regurgitation is present. Mild tricuspid regurgitation present. There is mild pulmonary hypertension. The right ventricular systolic pressure, as measured by Doppler, is 40.39mmHg. Trace/mild (physiologic) pulmonic regurgitation. The aortic root size is normal. There is no pericardial effusion. CONCLUSIONS -------- 1. This was a techncally difficult study with suboptimal views, , Lumason utilized for enhancement of images. 2. The left ventricular size is normal. 3. Left ventricular wall thickness is normal. 4. There is moderate global hypokinesis of LV . 5. Overall left ventricular systolic function is moderate-severely impaired with, an EF between 30 - 35 %. 6. The right ventricle is moderately enlarged. 7. LA is severely dilated >40 ml/m2 8. The right atrial size is normal. 9. 5.0mg OF Lumason UTLIZED: 2 OR MORE WALL SEGMENTS NOT VISUALIZED. 10. Mild mitral regurgitation is present. 11. Mild tricuspid regurgitation present. 12. There is mild pulmonary hypertension. 13. The right ventricular systolic pressure, as measured by Doppler, is 40.39mmHg. 14. Trace/mild (physiologic) pulmonic regurgitation. 15. The aortic root size is normal. 16. There is no pericardial effusion. FIELD OPERATIONS FARM MANAGER: Paula Kimble RDCS
--- NOTE | 2020-11-03 11:57 | P.PN ---
Subjective Progress Note Date: 11/03/20 Principal diagnosis: CC: Shortness of breath found to have heart failure exacerbation Patient states that he has been urinating a lot. Patient states that he needs his Lamictal as he is getting very anxious. Patient says that her shortness of breath is improving. He is currently on 3 L nasal cannula. He states that he is on oxygen at home as needed. Objective - Vital Signs Vital signs: Vital Signs Temp 98.4 F 11/03/20 08:00 Pulse 77 11/03/20 11:00 Resp 11 L 11/03/20 11:00 BP 164/59 11/03/20 11:00 Pulse Ox 98 11/03/20 11:00 Intake & Output 11/02/20 11/03/20 11/03/20 18:59 06:59 18:59 Intake Total 142.267 420.9 Output Total 3525 600 Balance -3382.733 -179.1 Weight 106 kg 102.2 kg Intake: Intake, IV Titration 92.267 270.9 Amount Heparin Sod,Pork in 0.45% 71.667 NaCl 25,000 unit In 0.45 % NaCl 1 250ml.bag @ 9. 434 UNITS/KG/HR 10 mls/hr IV .Q24H [facility] Rx#: [id number] Nitroglycerin-D5w Pmx 50 20.60 mg In Dextrose/Water 1 250ml.bag @ 10 MCG/MIN 3 mls/hr IV .Q24H [facility] Rx#: [id number] Nitroglycerin-D5w Pmx 50 270.9 mg In Dextrose/Water 1 250ml.bag @ Titrate IV . 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 spontaneously Psych - Calm and cooperative - Labs CBC & Chem 7: 11/03/20 03:48 11/03/20 03:48 Labs: Abnormal Lab Results - Last 24 Hours (Table) 11/02/20 11/02/20 11/02/20 Range/Units 17:30 17:54 17:54 WBC 13.2 H (3.8-10.6) k/uL Hgb 12.3 L (13.0-17.5) gm/dL Hct (39.0-53.0) % RDW 19.2 H (11.5-15.5) % Neutrophils # 10.0 H (1.3-7.7) k/uL Monocytes # 1.1 H (0-1.0) k/uL PT 14.3 H (9.0-12.0) sec INR 1.4 H (<1.2) APTT (22.0-30.0) sec VBG pH (7.31-7.41) Sodium 135 L (137-145) mmol/L Chloride (98-107) mmol/L Carbon Dioxide (22-30) mmol/L BUN 23 H (9-20) mg/dL Glucose 142 H (74-99) mg/dL POC Glucose (mg/dL) (75-99) mg/dL Plasma Lactic Acid Cali (0.7-2.0) mmol/L Total Bilirubin 2.3 H (0.2-1.3) mg/dL AST 1173 H (17-59) U/L ALT 1007 H (4-49) U/L Alkaline Phosphatase 146 H (38-126) U/L Troponin I (0.000-0.034) ng/mL 11/02/20 11/02/20 11/02/20 Range/Units 17:54 17:54 17:54 WBC (3.8-10.6) k/uL Hgb (13.0-17.5) gm/dL Hct (39.0-53.0) % RDW (11.5-15.5) % Neutrophils # (1.3-7.7) k/uL Monocytes # (0-1.0) k/uL PT (9.0-12.0) sec INR (<1.2) APTT (22.0-30.0) sec VBG pH 7.43 H (7.31-7.41) Sodium (137-145) mmol/L Chloride (98-107) mmol/L Carbon Dioxide (22-30) mmol/L BUN (9-20) mg/dL Glucose (74-99) mg/dL POC Glucose (mg/dL) (75-99) mg/dL Plasma Lactic Acid Cali 3.2 H* (0.7-2.0) mmol/L Total Bilirubin (0.2-1.3) mg/dL AST (17-59) U/L ALT (4-49) U/L Alkaline Phosphatase (38-126) U/L Troponin I 0.098 H* (0.000-0.034) ng/mL 11/02/20 11/02/20 11/03/20 Range/Units 20:14 20:49 00:26 WBC (3.8-10.6) k/uL Hgb (13.0-17.5) gm/dL Hct (39.0-53.0) % RDW (11.5-15.5) % Neutrophils # (1.3-7.7) k/uL Monocytes # (0-1.0) k/uL PT (9.0-12.0) sec INR (<1.2) APTT 32.5 H (22.0-30.0) sec VBG pH (7.31-7.41) Sodium (137-145) mmol/L Chloride (98-107) mmol/L Carbon Dioxide (22-30) mmol/L BUN (9-20) mg/dL Glucose (74-99) mg/dL POC Glucose (mg/dL) 143 H (75-99) mg/dL Plasma Lactic Acid Cali 2.3 H* (0.7-2.0) mmol/L Total Bilirubin (0.2-1.3) mg/dL AST (17-59) U/L ALT (4-49) U/L Alkaline Phosphatase (38-126) U/L Troponin I (0.000-0.034) ng/mL 11/03/20 11/03/20 11/03/20 Range/Units 00:26 00:26 03:48 WBC 14.1 H (3.8-10.6) k/uL Hgb 11.9 L (13.0-17.5) gm/dL Hct 37.1 L (39.0-53.0) % RDW 19.1 H (11.5-15.5) % Neutrophils # 12.6 H (1.3-7.7) k/uL Monocytes # (0-1.0) k/uL PT (9.0-12.0) sec INR (<1.2) APTT (22.0-30.0) sec VBG pH (7.31-7.41) Sodium (137-145) mmol/L Chloride (98-107) mmol/L Carbon Dioxide (22-30) mmol/L BUN (9-20) mg/dL Glucose (74-99) mg/dL POC Glucose (mg/dL) (75-99) mg/dL Plasma Lactic Acid Cali 2.7 H* (0.7-2.0) mmol/L Total Bilirubin (0.2-1.3) mg/dL AST (17-59) U/L ALT (4-49) U/L Alkaline Phosphatase (38-126) U/L Troponin I 0.090 H* (0.000-0.034) ng/mL 11/03/20 11/03/20 Range/Units 03:48 06:50 WBC (3.8-10.6) k/uL Hgb (13.0-17.5) gm/dL Hct (39.0-53.0) % RDW (11.5-15.5) % Neutrophils # (1.3-7.7) k/uL Monocytes # (0-1.0) k/uL PT (9.0-12.0) sec INR (<1.2) APTT 52.7 H (22.0-30.0) sec VBG pH (7.31-7.41) Sodium 136 L (137-145) mmol/L Chloride 96 L (98-107) mmol/L Carbon Dioxide 34 H (22-30) mmol/L BUN 23 H (9-20) mg/dL Glucose 157 H (74-99) mg/dL POC Glucose (mg/dL) (75-99) mg/dL Plasma Lactic Acid Cali (0.7-2.0) mmol/L Total Bilirubin 1.7 H (0.2-1.3) mg/dL AST 1345 H (17-59) U/L ALT 1335 H (4-49) U/L Alkaline Phosphatase 137 H (38-126) U/L Troponin I (0.000-0.034) ng/mL Assessment and Plan Assessment: 50 year old male with COPD on home oxygen, systolic chf with LVEF 25% who presents to the ED with shortness of breath. Patient states that he has been noncompliant with his medications. #acute on chronic hypoxic respiratory failure #acute on chronic systiolic congestive heart failure medication noncompliance and hypertension urgency #Hypertension urgency secondary to medication noncompliance #Elevated troponin likely due to heart failure exacerbation -Patient currently on IV Lasix 40 mg every 8 hours and spironolactone started by cardiology at 25 mg daily -Continue heparin drip until NSTEMI rule out -> troponin trend does not follow trend for ACS -Resume Plavix, aspirin, lisinopril, metoprolol -Wean nitro drip as tolerated -Improving. Patient currently on 3 L nasal cannula. Patient states that he wears oxygen at home as needed -Echocardiogram shows EF of 30-35% -Pulmonology and cardiology on board #Coronary artery disease with stents -Resume medications as above -Hold statin due to elevated liver enzymes Elevated liver enzymes likely due to hepatic congestion -Continuing to increase -Consult gastroenterology #COPD on home O2 as need -not in exacerbation -DuoNeb as needed #Medication noncompliance -Patient will need counseling on medication compliance at the time of discharge #Anxiety and depression -Resume home psych meds CODE STATUS:full code DVT prophylaxis: on heparin drip Anticipated length of stay > than [address]: home
[2020-11-03] MEDS: lamoTRIgine 100 MG TAB PO SCH (13:11)
[2020-11-03] MEDS: hydrALAZINE HCL 25 MG TAB PO SCH ×3 (13:11→21:43)
[2020-11-03] MEDS: FLUoxetine HCL 20 MG CAP PO SCH (13:11)
--- NOTE | 2020-11-03 14:09 | P.CNPUL ---
History of Present Illness Consult date: 11/03/20 Requesting physician: Manny Palacio Chief complaint: Shortness of breath History of present illness: This is a 50-year-old white male with history of multiple medical problems including severe ischemic cardiomyopathy and LV dysfunction, history of inferior wall NH, patient was found to have a totally occluded RCA, underwent cardiac catheterization in March of last year, and he had subsequent stenting of the RCA by Dr. Flores. Patient has been noncompliant with his medications. Presented this time to the ER with mostly symptoms of increased shortness of breath, dry cough, and according to the patient he stopped taking all his cardiac medications. Chest x-ray on presentation showed evidence of mild interstitial edema. Patient was also found to have significantly elevated blood pressure requiring nitroglycerin drip. Seems to me that the patient came in with hypertensive emergency, with poorly controlled blood pressure, and pulmonary edema. Patient was also noted to have significantly elevated liver enzymes, questionable congestive hepatopathy related to his underlying heart failure. However this these to be addressed further. Patient was seen by cardiology on consultation, placed back on his beta blockers and SHIVAM inhibitor's, and added Aldactone. Recommended weaning and stopping nitroglycerin. Also recommended aspirin and Plavix. Repeat echocardiogram is pending. Review of Systems Constitutional: Weakness fatigue no fever no chills. HEENT: Negative. Cardiopulmonary: As noted in HPI. Mostly shortness of breath and cough. GI: Negative. Genitourinary: Negative. Musculoskeletal: Negative. Skin: Negative. Hematologic: Negative. Psychiatric: History of depression and anxiety. Neurologic: Negative. Endocrine: Negative. Musculoskeletal: Negative. Past Medical History Past Medical History: Coronary Artery Disease (CAD), Chest Pain / Angina, COPD, GERD/Reflux, Hypertension, Myocardial Infarction (NH), Osteoarthritis (OA), Rheumatoid Arthritis (RA) Additional Past Medical History / Comment(s): Opiate addiction remission since 2014. Last Myocardial Infarction Date:: 04/25/2020 History of Any Multi-Drug Resistant Organisms: None Reported Past Surgical History: Heart Catheterization With Stent Additional Past Surgical History / Comment(s): R foot reconstruction post crushing injury. Xience stent to RCA 04/25/2020 Past Anesthesia/Blood Transfusion Reactions: No Reported Reaction Date of Last Stent Placement:: 04/25/2020 Past Psychological History: Anxiety, Depression Smoking Status: Current every day smoker Past Alcohol Use History: None Reported Past Drug Use History: Opiates Additional Drug Use History / Comment(s): smokes 1/2 ppd - Past Family History Father Family Medical History: Hypertension Additional Family Medical History / Comment(s): PE Mother Family Medical History: No Reported History Medications and Allergies Home Medications Medication Instructions Recorded Confirmed Type FLUoxetine HCL [PROzac] 20 mg PO DAILY 04/25/20 11/02/20 History hydrALAZINE HCL [Apresoline] 100 mg PO TID #90 tab 04/27/20 11/02/20 Rx Aspirin 325 mg PO DAILY #30 tab 07/03/20 11/02/20 Rx Atorvastatin [Lipitor] 80 mg PO HS #30 tab 07/03/20 11/02/20 Rx Clopidogrel [Plavix] 75 mg PO DAILY 30 Days #30 tab 07/03/20 11/02/20 Rx Furosemide [Lasix] 40 mg PO BID@0900,1600 #60 tab 07/03/20 11/02/20 Rx Metoprolol Succinate (ER) [Toprol 100 mg PO DAILY #30 tab 07/03/20 11/02/20 Rx XL] lamoTRIgine [LaMICtal] 200 mg PO DAILY #30 tab 07/03/20 11/02/20 Rx lisinopriL 40 mg PO DAILY #30 tab 07/03/20 11/02/20 Rx Albuterol Inhaler [Ventolin Hfa 2 puff INHALATION RT-QID PRN 11/02/20 11/02/20 History Inhaler] buPROPion SR [Wellbutrin Sr] 150 mg PO BID 11/02/20 11/02/20 History Allergies Allergy/AdvReac Type Severity Reaction Status Date / Time No Known Allergies Allergy Verified 11/02/20 18:12 Physical Exam Vitals: Vital Signs Temp Pulse Resp BP Pulse Ox 11/03/20 13:00 79 18 99/47 95 11/03/20 12:30 84 16 144/56 93 L 11/03/20 12:00 73 16 178/112 94 L 11/03/20 11:30 87 14 163/58 93 L 11/03/20 11:00 77 11 L 164/59 98 11/03/20 10:30 81 19 159/97 95 11/03/20 10:00 78 13 140/88 94 L 11/03/20 09:30 87 29 H 137/70 94 L 11/03/20 09:00 87 19 138/81 98 11/03/20 08:30 84 18 130/67 95 11/03/20 08:00 98.4 F 84 17 134/104 94 L 11/03/20 07:31 80 11/03/20 07:30 84 15 142/83 98 11/03/20 07:23 76 11/03/20 07:00 90 15 135/82 93 L 11/03/20 06:30 88 18 141/80 93 L 11/03/20 06:00 87 20 133/84 94 L 11/03/20 05:30 90 19 143/95 92 L 11/03/20 05:00 90 19 140/91 93 L 11/03/20 04:30 87 19 144/91 95 11/03/20 04:00 98.2 F 92 22 137/95 93 L 11/03/20 03:30 90 20 136/89 93 L 11/03/20 03:00 91 22 146/90 94 L 11/03/20 02:30 94 21 149/97 95 11/03/20 02:00 97 20 162/71 96 11/03/20 01:00 101 H 22 155/89 95 11/03/20 00:34 98 11/03/20 00:30 101 H 20 176/127 98 11/03/20 00:00 98.8 F 108 H 16 181/104 96 11/02/20 23:30 105 H 14 176/108 97 11/02/20 23:00 105 H 16 145/81 96 11/02/20 22:00 106 H 20 180/116 97 11/02/20 21:30 106 H 23 176/111 97 11/02/20 21:00 96.7 F L 105 H 23 176/119 98 11/02/20 20:21 108 H 20 174/101 100 11/02/20 20:16 107 H 20 170/106 100 11/02/20 20:11 112 H 20 179/109 100 11/02/20 20:05 112 H 20 190/122 100 11/02/20 20:00 116 H 11/02/20 19:56 111 H 20 185/126 100 11/02/20 19:47 113 H 11/02/20 19:45 118 H 20 190/133 100 11/02/20 19:40 113 H 20 196/126 100 11/02/20 19:33 115 H 20 192/135 100 11/02/20 18:34 124 H 20 202/127 100 11/02/20 17:56 126 H 11/02/20 17:39 125 H 20 219/161 100 11/02/20 17:30 118 H 11/02/20 17:23 98.8 F 122 H 20 199/131 100 Intake and Output 11/02/20 11/03/20 11/03/20 22:59 06:59 14:59 Intake Total 20.60 121.667 520.9 Output Total 1600 1925 600 Balance -1579.40 -1803.333 -79.1 Intake: Intake, IV Titration 20.60 71.667 270.9 Amount Heparin Sod,Pork in 0.45% 71.667 NaCl 25,000 unit In 0.45 % NaCl 1 250ml.bag @ 9. 434 UNITS/KG/HR 10 mls/hr IV .Q24H [facility] Rx#: [id number] Nitroglycerin-D5w Pmx 50 20.60 mg In Dextrose/Water 1 250ml.bag @ 10 MCG/MIN 3 mls/hr IV .Q24H [facility] Rx#: [id number] Nitroglycerin-D5w Pmx 50 270.9 mg In Dextrose/Water 1 250ml.bag @ Titrate IV . Q0M [facility] Rx#:[id number] Oral 50 250 Output: Urine 1600 1925 600 Other: Voiding Method Urinal Urinal # Voids 1 0 0 Weight 106 kg 102.2 kg General appearance: Revealed a 50-year-old white male, obese, in no distress. Head exam: atraumatic, normocephalic Eye exam: PERRLA, EOMI, nonicteric sclera. ENT exam: Throat is clear, no neck masses, Neck exam: normal inspection. No stridor, no neck rigidity. Respiratory exam: Symmetrical chest expansion, crackles at the bases, rhonchi on forced expiratory maneuver noted. Cardiovascular Exam: Distant S1 and S2, no S3 gallop, 2/6 systolic murmur thought the precordium. GI/Abdominal exam: Obese,: soft. Nontender, no megaly, no rebound no guarding. Neurological exam: Alert and oriented 3, no gross focal neurologic deficits. Psychiatric exam: Normal mood, affect and normal mental status examination Skin exam: No rashes, no cyanosis. Results - Laboratory Findings CBC and BMP: 11/03/20 03:48 11/03/20 03:48 PT/INR, D-dimer PT 14.3 sec (9.0-12.0) H 11/02/20 17:54 INR 1.4 (<1.2) H 11/02/20 17:54 Abnormal lab findings: Abnormal Labs 11/02/20 11/02/20 11/02/20 17:30 17:54 17:54 WBC 13.2 H Hgb 12.3 L Hct RDW 19.2 H Neutrophils # 10.0 H Monocytes # 1.1 H PT 14.3 H INR 1.4 H APTT VBG pH Sodium 135 L Chloride Carbon Dioxide BUN 23 H Glucose 142 H POC Glucose (mg/dL) Plasma Lactic Acid Cali Total Bilirubin 2.3 H AST 1173 H ALT 1007 H Alkaline Phosphatase 146 H Troponin I 11/02/20 11/02/20 11/02/20 17:54 17:54 17:54 WBC Hgb Hct RDW Neutrophils # Monocytes # PT INR APTT VBG pH 7.43 H Sodium Chloride Carbon Dioxide BUN Glucose POC Glucose (mg/dL) Plasma Lactic Acid Cali 3.2 H* Total Bilirubin AST ALT Alkaline Phosphatase Troponin I 0.098 H* 11/02/20 11/02/20 11/03/20 20:14 20:49 00:26 WBC Hgb Hct RDW Neutrophils # Monocytes # PT INR APTT 32.5 H VBG pH Sodium Chloride Carbon Dioxide BUN Glucose POC Glucose (mg/dL) 143 H Plasma Lactic Acid Cali 2.3 H* Total Bilirubin AST ALT Alkaline Phosphatase Troponin I 11/03/20 11/03/20 11/03/20 00:26 00:26 03:48 WBC 14.1 H Hgb 11.9 L Hct 37.1 L RDW 19.1 H Neutrophils # 12.6 H Monocytes # PT INR APTT VBG pH Sodium Chloride Carbon Dioxide BUN Glucose POC Glucose (mg/dL) Plasma Lactic Acid Cali 2.7 H* Total Bilirubin AST ALT Alkaline Phosphatase Troponin I 0.090 H* 11/03/20 11/03/20 03:48 06:50 WBC Hgb Hct RDW Neutrophils # Monocytes # PT INR APTT 52.7 H VBG pH Sodium 136 L Chloride 96 L Carbon Dioxide 34 H BUN 23 H Glucose 157 H POC Glucose (mg/dL) Plasma Lactic Acid Cali Total Bilirubin 1.7 H AST 1345 H ALT 1335 H Alkaline Phosphatase 137 H Troponin I - Diagnostic Findings Chest x-ray: image reviewed (Chest x-ray is suggestive of interstitial edema.) Additional studies: Ultrasound of gallbladder and liver is basically unremarkable. Assessment and Plan Assessment: Acute hypoxic respiratory failure secondary to pulmonary edema secondary to acute on chronic systolic congestive heart failure Hypertensive emergency with significantly elevated blood pressure, and pulmonary edema on presentation. Hepatic passive congestion with elevated liver enzymes. Possible non-ST elevation myocardial infarction, that is being addressed by cardiology on the case. Noncompliance with medications. History of ischemic cardiomyopathy and LV dysfunction. Repeat echocardiogram today showed LV dysfunction with ejection fraction of 30 to 35 percent. Recommendation: Resume all home meds/cardiac meds. Taper and discontinue nitroglycerin. Counseled regarding his noncompliance with his medications. And advised to be more compliant. May or may not require cardiac catheterization, that is yet to be decided by cardiology on the case. We'll arrange for the patient to be transferred to a monitor bed on the cardiac floor. Continue diuretics as ordered by cardiology. Continue to monitor liver enzymes. We'll continue to follow Time with Patient: Greater than 30
[2020-11-03] MEDS: HEPARIN SOD,PORK IN 0.45% NACL 25,000 UNIT in 0.45% NACL 1 250ML.BAG IV SCH (15:34)
[2020-11-03] MEDS: buPROPion SR 150 MG TABLET.ER PO SCH (21:43)
--- NOTE | 2020-11-03 22:26 | CONS ---
CONSULTATION DATE OF SERVICE: 11/03/2020 REQUESTING PHYSICIAN: Dr. Valentine. REASON FOR CONSULTATION: Elevated LFTs. HISTORY OF PRESENT ILLNESS: The patient is a 50-year-old pleasant white male with history of COPD on home O2, history of congestive heart failure, who was admitted to hospital with progressive shortness of breath for the last 3-4 days duration. He reports no cough or sputum production. He denies any chest pain, cough, fever, chills, or night sweats. He came in the emergency room and subsequently admitted to the hospital with congestive heart failure and presently remains in the intensive care unit. At the time of admission to the hospital he was noted to have elevation of serum transaminases. Serum AST was 173, ALT was 1007, T bilirubin was 2.3 and alkaline phosphatase was 146. Today repeat labs show a bilirubin of 1.7, AST and ALT are 1345 and 1335 respectively, and alkaline phosphatase is 137. The patient does admit to being diagnosed with fatty liver disease a few years ago. He denies any history of chronic liver disease. No history of alcohol use. Denies starting on any new medications recently. He reports no abdominal pain. No nausea, vomiting. No rectal bleeding or melena. PAST MEDICAL HISTORY: Significant for hypertension, hyperlipidemia, anxiety, depression, coronary artery disease status post stent placement in the past and COPD on home O2. MEDICATIONS AT HOME: Lisinopril, Keppra, Wellbutrin, Toprol, Lasix Prozac, Plavix, Lipitor, aspirin, and Ventolin. ALLERGIES: None. SOCIAL HISTORY: No smoking, no alcohol use. PAST SURGICAL HISTORY: Cardiac catheterization with stent placement, right foot reconstruction. FAMILY HISTORY: Father has hypertension. Mother unremarkable. REVIEW OF SYSTEMS: CARDIOPULMONARY: Does complain of shortness of breath, but no chest pain. : Unremarkable. SKIN: Unremarkable. ENDOCRINE: Unremarkable PSYCHIATRIC: Unremarkable. NEUROLOGY: Unremarkable. ENT/VISION: Unremarkable. CONSTITUTIONAL: No recent weight loss. No fever, chills, night sweats. HEMATOLOGY: Unremarkable. PSYCHIATRY: History of anxiety, depression. PHYSICAL EXAMINATION: He appears comfortable. No apparent distress. Vital signs are stable. Blood pressure is 199/131, pulse rate 122, and temperature 98.8 HEENT examination unremarkable. Conjunctivae pink. Sclerae anicteric. Oral cavity no lesions. NECK: No JVD or lymph node enlargement. CHEST was clear to auscultation. HEART: Regular rate and rhythm. ABDOMEN: Soft, it was nontender, nondistended. Bowel sounds are positive. No organomegaly. EXTREMITIES: No pedal edema. SKIN: No rashes. NEUROLOGIC: Alert and oriented x3. No focal deficits. LAB: WBC 13.2, hemoglobin 12.3, platelets 362. PT, INR is 1.4 AST was 1173, ALT was 1007, T bilirubin 2.3 and alkaline phosphatase 146. Today T bilirubin is down to 1.7. AST and ALT at 1345 and 1335, alkaline phosphatase is 137. Ultrasound of the right upper quadrant done yesterday revealed mild hepatomegaly with coarse echotexture consistent with fatty liver disease. Gallbladder wall was slightly thickened but no evidence of biliary ductal dilation. IMPRESSION: 1. Acute elevation of serum transaminases in the range of 1000 with mild elevation of bilirubin but normal alkaline phosphatase in this patient who is otherwise asymptomatic and no history of chronic liver disease, most likely dealing with acute hepatitis, could be either medication-related or secondary to hypoperfusion/ischemic hepatitis. Also, possibility of passive venous congestion needs to be considered in this patient with exacerbation of congestive heart failure. Other superimposed hepatitis such as vital hepatitis or medication induced hepatitis also needs to be considered. On review of his old records he did have mild elevation of serum transaminases about six months ago, but patient is unaware of this. Ultrasound of the right upper quadrant did show evidence of fatty liver. No history of alcohol abuse. 2. Exacerbation of congestive heart failure. 3. History of hypertension and hypercholesteremia. 4. Coronary artery disease status post stent placement six months ago. RECOMMENDATIONS: 1. Obtain hepatitis serologies for A, B and C. 2. Monitor LFTs closely. 3. Avoid hepatotoxic medications. 4. Discontinue statins for now. 5. Will follow with you closely. Thank you for this consultation. MMODL / IJN: [id number] /
[2020-11-04] MEDS: FUROSEMIDE 10 MG/ML 4 ML VIAL IV SCH ×4 (00:25→19:41)
[2020-11-04 04:58] LABS: Anisocytosis Slight; Basophils % (A) 0 %; Eosinophils % (A) 0 %; HCT 40.3 % (39.0-53.0); HGB 12.3 gm/dL (13.0-17.5); Hypochromasia Slight; Lymphocytes # (A) 2.3 k/uL (1.0-4.8); Lymphocytes % (A) 9 %; MCH 25.8 pg (25.0-35.0); MCHC 30.6 g/dL (31.0-37.0); MCV 84.4 fL (80.0-100.0); Mean Platelet Volume 7.3; Microcytosis Slight; Monocytes # (A) 1.3 k/uL (0-1.0); Monocytes % (A) 5 %; Neutrophils # (A) 20.5 k/uL (1.3-7.7); Neutrophils % (A) 83 %; Platelet Count 451 k/uL (150-450); RBC 4.78 m/uL (4.30-5.90); RDW 19.3 % (11.5-15.5); WBC 24.6 k/uL (3.8-10.6)
[2020-11-04] MEDS: HEPARIN SODIUM,PORCINE 5,000 UNIT/ML 1 ML VIAL IV PRN (05:31)
[2020-11-04 05:53] LABS: Albumin 3.6 g/dL (3.5-5.0); Calcium 8.8 mg/dL (8.4-10.2); Potassium 4.4 mmol/L (3.5-5.1); Total Bilirubin 0.8 mg/dL (0.2-1.3); Total Protein 6.5 g/dL (6.3-8.2)
[2020-11-04] MEDS: ASPIRIN 81 MG PO SCH (07:58)
[2020-11-04] MEDS: CLOPIDOGREL 75 MG TAB PO SCH (07:58)
[2020-11-04] MEDS: hydrALAZINE HCL 25 MG TAB PO SCH (08:00)
[2020-11-04] MEDS: buPROPion SR 150 MG TABLET.ER PO SCH ×2 (08:01→19:41)
[2020-11-04] MEDS: FLUoxetine HCL 20 MG CAP PO SCH (08:01)
[2020-11-04] MEDS: METOPROLOL SUCCINATE (ER) 100 MG TAB.ER.24H PO SCH (08:01)
[2020-11-04] MEDS: lamoTRIgine 100 MG TAB PO SCH (08:01)
[2020-11-04] MEDS: lisinopriL 20 MG TAB PO SCH (08:01)
[2020-11-04] MEDS: IPRATROPIUM-ALBUTEROL 3 ML NEB INHALATION SCH ×4 (09:31→20:26)
[2020-11-04] MEDS: SPIRONOLACTONE 25 MG TAB PO SCH (09:54)
[2020-11-04] MEDS: ISOSORBIDE MONONITRATE ER 30 MG TAB.ER.24H PO SCH (09:54)
[2020-11-04] MEDS: hydrALAZINE HCL 50 MG TAB PO SCH ×3 (09:55→21:57)
[2020-11-04 10:04] LABS: Hepatitis A Antibody IgM Non-Reactive (Non-Reactive); Hepatitis B Core IgM Non-Reactive (Non-Reactive); Hepatitis B Surface Antigen Non-Reactive (Non-Reactive); Hepatitis C IgG Antibody Non-Reactive (Non-Reactive)
--- NOTE | 2020-11-04 10:25 | PN ---
PROGRESS NOTE Mr. Wagner is a 50-year-old male with known history of coronary artery disease status post percutaneous revascularization of his right coronary artery in the setting of myocardial infarction in March of last year, history of severe cardiomyopathy with noncompliance, who presented to the hospital with symptoms of progressive dyspnea and evidence of congestive heart failure as well as element of hypertension. He is feeling better today. His breathing is better. He is off the IV nitroglycerin. He denies any symptoms of chest pain. Denies any dizziness or palpitation. He denies any nausea. He had an echocardiogram performed yesterday that showed ejection fraction 30-35% with mild mitral and tricuspid regurgitation. He continues to be on Plavix 75 mg daily, aspirin once a day, Lasix 40 mg IV q.8 hours, IV heparin, hydralazine 25 mg 3 times a day, lisinopril 40 mg daily, spironolactone 25 mg daily, metoprolol succinate 100 mg daily. PHYSICAL EXAMINATION: Blood pressure running in the 120s to 140s with a diastolic up to the 90s. Heart rate in the 80s. LUNGS: With decreased air exchange but no wheezes. HEART: Regular rate and rhythm, S1, S2. No S3. No rub appreciated. ABDOMEN: Soft, nontender. Positive bowel sounds. No organomegaly. EXTREMITIES: No edema. LAB DATA: Revealed an AST down to 524, his ALT is down to 963. His total bilirubin is down to 0.8, BUN and creatinine 39 and 1.2, hemoglobin of 12.3. Sodium 135. IMPRESSION: 1. Symptoms of congestive heart failure in a patient with known history of severe cardiomyopathy, improving. 2. Noncompliance. 3. Mild troponin elevation most likely representing a type 2 cardiac event. I doubt that we are dealing with any acute coronary syndrome. 4. Chronic tobacco use. 5. Hypertension. 6. Abnormal liver function tests, improving. RECOMMENDATION: I will increase the dose of his hydralazine. I will add nitrate to his regimen. I will decrease the dose of his IV Lasix. Follow his renal function. I will stop the heparin. Increase his level activity. At this time I will hold on coronary angiography, I do not not see any acute indication for that and depending on his progress, further recommendation will be made. MMODL / IJN: [id number] /
--- NOTE | 2020-11-04 10:55 | PN ---
PROGRESS NOTE DATE OF SERVICE: 11/04/2020 Patient is a 50-year-old pleasant white male admitted to the hospital with exacerbation of congestive heart failure and was noted to have elevated serum transaminases and hence was seen in consultation yesterday. The patient is doing much better today. Shortness of breath has improved. No abdominal pain. No nausea, vomiting. PHYSICAL EXAMINATION: Appears comfortable no apparent distress. VITAL SIGNS: Stable. Blood pressure 147/99, pulse 81, temperature 97.7. HEENT examination unremarkable. Conjunctivae pink. Sclerae anicteric. Oral cavity no lesions. NECK: No JVD or lymph node enlargement. CHEST: Clear to auscultation. HEART: Regular rate and rhythm. ABDOMEN: Soft. Bowel sounds are positive. No organomegaly. EXTREMITIES: No pedal edema. NEURO: He is alert and oriented x3. No focal deficits. LABS: From today WBC 24.6, hemoglobin 12.3, platelets 451. AST and ALT have improved. AST is down to 524, ALT is down to 953. T bilirubin is normalized at 0.8 and alkaline phosphatase 154. Hepatitis serologies for A, B and C are pending. IMPRESSION: 1. Acute elevation of serum transaminases, could be related to passive venous congestion/component of ischemic hepatitis, but possibility of medication induced hepatitis cannot be excluded as he was recently started on statins about two weeks ago which have been discontinued. In any event, serum transaminases are improving. Hepatitis serologies for A, B and C are pending. 2. Exacerbation of congestive heart failure, improving. 3. Uncontrolled hypertension, much better. RECOMMENDATION: 1. Monitor LFTs closely. 2. Await hepatitis serologies for A, B and C. 3. Hold off on statins for now. 4. Repeat labs in the morning. 5. Will follow with you closely. Thank you for this consultation. MMODL / IJN: [id number] /
--- NOTE | 2020-11-04 13:34 | P.PN ---
Subjective Progress Note Date: 11/04/20 Principal diagnosis: CC: Shortness of breath found to have heart failure exacerbation Patient states that his shortness of breath is much better and he feels he is close to his baseline. He is currently on 3 L nasal cannula. Objective - Vital Signs Vital signs: Vital Signs Temp 98 F 11/04/20 12:00 Pulse 84 11/04/20 12:35 Resp 16 11/04/20 12:00 BP 142/96 11/04/20 12:00 Pulse Ox 99 11/04/20 12:00 Intake & Output 11/03/20 11/04/20 11/04/20 18:59 06:59 18:59 Intake Total 1060.71 514.814 114.463 Output Total 1075 1880 600 Balance -14.29 -1365.186 -485.537 Weight 99.5 kg Intake: Intake, IV Titration 660.71 214.814 114.463 Amount Heparin Sod,Pork in 0.45% 171.56 181.664 64.463 NaCl 25,000 unit In 0.45 % NaCl 1 250ml.bag @ 9. 434 UNITS/KG/HR 10 mls/hr IV .Q24H [facility] Rx#: [id number] Nitroglycerin-D5w Pmx 50 489.15 33.15 mg In Dextrose/Water 1 250ml.bag @ Titrate IV . 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 spontaneously Psych - Calm and cooperative - Labs CBC & Chem 7: 11/04/20 04:20 11/04/20 04:20 Labs: Abnormal Lab Results - Last 24 Hours (Table) 11/04/20 11/04/20 Range/Units 04:20 04:20 WBC 24.6 H (3.8-10.6) k/uL Hgb 12.3 L (13.0-17.5) gm/dL MCHC 30.6 L (31.0-37.0) g/dL RDW 19.3 H (11.5-15.5) % Plt Count 451 H (150-450) k/uL Neutrophils # 20.5 H (1.3-7.7) k/uL Monocytes # 1.3 H (0-1.0) k/uL Sodium 135 L (137-145) mmol/L BUN 39 H (9-20) mg/dL Glucose 130 H (74-99) mg/dL AST 524 H (17-59) U/L ALT 953 H (4-49) U/L Alkaline Phosphatase 154 H (38-126) U/L Microbiology - Last 24 Hours (Table) 11/02/20 17:54 Blood Culture - Preliminary Blood No Growth after 24 hours Assessment and Plan Assessment: 50 year old male with COPD on home oxygen, systolic chf with LVEF 25% who presents to the ED with shortness of breath. Patient states that he has been noncompliant with his medications. #acute on chronic hypoxic respiratory failure #acute on chronic systiolic congestive heart failure medication noncompliance and hypertension urgency #Hypertension urgency secondary to medication noncompliance #Elevated troponin likely due to heart failure exacerbation -Patient currently on spironolactone 25 mg daily. Lasix has been decreased to 40 mg twice a day. -Heparin drip discontinued. Cardiology does not believe that the troponin elevation is due to ACS and likely type II TX -Resume Plavix, aspirin, lisinopril, metoprolol -Patient of nitro drip -Cardiology started patient on Imdur and hydralazine. -Echocardiogram shows EF of 30-35% -Pulmonology and cardiology on board -Patient blood pressure is better controlled. He is satting well on 3 L nasal cannula (at home patient uses oxygen as needed) #Coronary artery disease with stents -Resume medications as above -Hold statin due to elevated liver enzymes Elevated liver enzymes likely due to hepatic congestion -Improving -GI on board #COPD on home O2 as need -not in exacerbation -DuoNeb as needed #Medication noncompliance -Patient will need counseling on medication compliance at the time of discharge #Anxiety and depression -Resume home psych meds #Leukocytosis likely due to steroid given in the ED -Continue to monitor patient for signs and symptoms of infection. CODE STATUS:full code DVT prophylaxis: on heparin drip Anticipated length of stay > than [address]: home
--- NOTE | 2020-11-04 15:13 | P.PN ---
Subjective Progress Note Date: 11/04/20 Principal diagnosis: Acute hypoxic failure secondary to pulmonary edema secondary to acute on chronic systolic congestive heart failure This is a 50-year-old white male with history of multiple medical problems including severe ischemic cardiomyopathy and LV dysfunction, history of inferior wall FL, patient was found to have a totally occluded RCA, underwent cardiac catheterization in March of last year, and he had subsequent stenting of the RCA by Dr. Flores. Patient has been noncompliant with his medications. Presented this time to the ER with mostly symptoms of increased shortness of breath, dry cough, and according to the patient he stopped taking all his cardiac medi cations. Chest x-ray on presentation showed evidence of mild interstitial edema. Patient was also found to have significantly elevated blood pressure requiring nitroglycerin drip. Seems to me that the patient came in with hypertensive emergency, with poorly controlled blood pressure, and pulmonary edema. Patient was also noted to have significantly elevated liver enzymes, questionable congestive hepatopathy related to his underlying heart failure. However this these to be addressed further. Patient was seen by cardiology on consultation, placed back on his beta blockers and SHIVAM inhibitor's, and added Aldactone. Recommended weaning and stopping nitroglycerin. Also recommended aspirin and Plavix. Repeat echocardiogram is pending. Patient was reevaluated today on 11/04/2020, patient was seen in the ICU initially and he was eventually transferred to the regular medical floor. Patient is on 2 L nasal cannula, he is off nitroglycerin, denies any chest pain, denies any shortness of breath, patient is off heparin drip, and he is intermittently on BiPAP at night with IPAP of 15 EPAP of 5, and he was on 28% FiO2. Noted to have leukocytosis, hence Rocephin was added empirically. Cultures including urine cultures are pending. WBC count is up to 24.6, it was 14.1 yesterday. Basic metabolic profile is normal renal profile is a bit worse with creatinine up to 1.21. Liver enzymes are improving/transaminases are significantly down compared to yesterday. PCR for covid 19 is negative. Hepatitis screen is negative Objective - Vital Signs Vital signs: Vital Signs Temp 98 F 11/04/20 12:00 Pulse 84 11/04/20 12:35 Resp 16 11/04/20 14:00 BP 142/96 11/04/20 12:00 Pulse Ox 99 11/04/20 12:00 Intake & Output 11/03/20 11/04/20 11/04/20 18:59 06:59 18:59 Intake Total 1060.71 514.814 114.463 Output Total 1075 1880 600 Balance -14.29 -1365.186 -485.537 Weight 99.5 kg Intake: Intake, IV Titration 660.71 214.814 114.463 Amount Heparin Sod,Pork in 0.45% 171.56 181.664 64.463 NaCl 25,000 unit In 0.45 % NaCl 1 250ml.bag @ 9. 434 UNITS/KG/HR 10 mls/hr IV .Q24H [facility] Rx#: [id number] Nitroglycerin-D5w Pmx 50 489.15 33.15 mg In Dextrose/Water 1 250ml.bag @ Titrate IV . Q0M [facility] Rx#:[id number] cefTRIAXone 1 gm In 50 Sodium Chloride 0.9% 50 ml @ 100 mls/hr IVPB Q24HR [facility] Rx#:[id number] Oral 400 300 Output: Urine 1075 1880 600 Other: Voiding Method Urinal Urinal Urinal # Voids 0 0 0 - Exam General appearance: Revealed a 50-year-old white male, obese, in no distress. On 2 L nasal cannula. Head exam: atraumatic, normocephalic Eye exam: PERRLA, EOMI, nonicteric sclera. ENT exam: Throat is clear, no neck masses, Neck exam: normal inspection. No stridor, no neck rigidity. Respiratory exam: Symmetrical chest expansion, crackles at the bases, no rhonchi no wheezes. Cardiovascular Exam: Distant S1 and S2, no S3 gallop, 2/6 systolic murmur thought the precordium. GI/Abdominal exam: Obese,: soft. Nontender, no megaly, no rebound no guarding. Neurological exam: Alert and oriented 3, no gross focal neurologic deficits. Psychiatric exam: Normal mood, affect and normal mental status examination Skin exam: No rashes, no cyanosis. - Labs CBC & Chem 7: 11/04/20 04:20 11/04/20 04:20 Labs: Abnormal Lab Results - Last 24 Hours (Table) 11/04/20 11/04/20 Range/Units 04:20 04:20 WBC 24.6 H (3.8-10.6) k/uL Hgb 12.3 L (13.0-17.5) gm/dL MCHC 30.6 L (31.0-37.0) g/dL RDW 19.3 H (11.5-15.5) % Plt Count 451 H (150-450) k/uL Neutrophils # 20.5 H (1.3-7.7) k/uL Monocytes # 1.3 H (0-1.0) k/uL Sodium 135 L (137-145) mmol/L BUN 39 H (9-20) mg/dL Glucose 130 H (74-99) mg/dL AST 524 H (17-59) U/L ALT 953 H (4-49) U/L Alkaline Phosphatase 154 H (38-126) U/L Microbiology - Last 24 Hours (Table) 11/02/20 17:54 Blood Culture - Preliminary Blood No Growth after 24 hours Assessment and Plan Assessment: Acute hypoxic respiratory failure secondary to pulmonary edema secondary to acute on chronic systolic congestive heart failure Hypertensive emergency with significantly elevated blood pressure, and pulmonary edema on presentation. Hepatic passive congestion with elevated liver enzymes. Improving today. Possible non-ST elevation myocardial infarction, that is being addressed by cardiology on the case. Noncompliance with medications. History of ischemic cardiomyopathy and LV dysfunction. Repeat echocardiogram today showed LV dysfunction with ejection fraction of 30 to 35 percent. Recommendation: Counseled regarding his noncompliance with his medications. And advised to be more compliant. Will transfer patient out of the ICU to a cardiac floor. Continue cardiac medications as per cardiology. Continue Rocephin. Will follow on when necessary basis. Continue to monitor liver enzymes. Time with Patient: Less than 30
[2020-11-05 07:41] LABS: Anisocytosis Slight; Basophils # (A) 0.1 k/uL (0-0.2); Basophils % (A) 1 %; Eosinophils # (A) 0.2 k/uL (0-0.7); Eosinophils % (A) 1 %; HCT 40.5 % (39.0-53.0); HGB 12.9 gm/dL (13.0-17.5); Hypochromasia Slight; Lymphocytes # (A) 2.4 k/uL (1.0-4.8); Lymphocytes % (A) 20 %; MCH 26.8 pg (25.0-35.0); MCHC 31.8 g/dL (31.0-37.0); MCV 84.4 fL (80.0-100.0); Mean Platelet Volume 7.3; Microcytosis Slight; Monocytes # (A) 1.3 k/uL (0-1.0); Monocytes % (A) 11 %; Neutrophils % (A) 65 %; Platelet Count 418 k/uL (150-450); RBC 4.79 m/uL (4.30-5.90); WBC 12.3 k/uL (3.8-10.6)
[2020-11-05 07:54] LABS: Calcium 8.9 mg/dL (8.4-10.2); Potassium 4.4 mmol/L (3.5-5.1)
[2020-11-05] MEDS: IPRATROPIUM-ALBUTEROL 3 ML NEB INHALATION SCH ×4 (08:10→19:30)
[2020-11-05] MEDS: ASPIRIN 81 MG PO SCH (08:57)
[2020-11-05] MEDS: lamoTRIgine 100 MG TAB PO SCH (08:57)
[2020-11-05] MEDS: SPIRONOLACTONE 25 MG TAB PO SCH (08:57)
[2020-11-05] MEDS: FUROSEMIDE 10 MG/ML 4 ML VIAL IV SCH (08:57)
[2020-11-05] MEDS: hydrALAZINE HCL 50 MG TAB PO SCH (08:58)
[2020-11-05] MEDS: FLUoxetine HCL 20 MG CAP PO SCH (08:58)
[2020-11-05] MEDS: lisinopriL 20 MG TAB PO SCH (08:58)
[2020-11-05] MEDS: buPROPion SR 150 MG TABLET.ER PO SCH ×2 (08:58→20:04)
[2020-11-05] MEDS: METOPROLOL SUCCINATE (ER) 100 MG TAB.ER.24H PO SCH (08:58)
[2020-11-05] MEDS: CLOPIDOGREL 75 MG TAB PO SCH (08:58)
[2020-11-05] MEDS: ISOSORBIDE MONONITRATE ER 30 MG TAB.ER.24H PO SCH (08:58)
--- NOTE | 2020-11-05 10:31 | P.PN ---
Subjective Progress Note Date: 11/05/20 Principal diagnosis: CC: Shortness of breath found to have heart failure exacerbation Patient says that his breathing is improved. He is off oxygen this morning and is satting well. Objective - Vital Signs Vital signs: Vital Signs Temp 98.7 F 11/05/20 08:55 Pulse 82 11/05/20 08:55 Resp 20 11/05/20 08:55 BP 151/84 11/05/20 08:55 Pulse Ox 96 11/05/20 08:55 Intake & Output 11/04/20 11/05/20 11/05/20 18:59 06:59 18:59 Intake Total 214.589 315 1680 Output Total 600 2150 Balance -385.537 -1800 1036 Weight 97.6 kg Intake: Intake, IV Titration 214.463 Amount Heparin Sod,Pork in 0.45% 64.463 NaCl 25,000 unit In 0.45 % NaCl 1 250ml.bag @ 9. 434 UNITS/KG/HR 10 mls/hr IV .Q24H [facility] Rx#: [id number] cefTRIAXone 1 gm In 150 Sodium Chloride 0.9% 50 ml @ 100 mls/hr IVPB Q24HR [facility] Rx#:[id number] Oral 350 1036 Output: Urine 600 2150 Other: Voiding Method Urinal Urinal Urinal # Voids 2 - Exam General examination - Alert and Oriented 3 in NAD Heart - + S1S2 no murmurs Lungs - bilateral lower lung crackles Abdomen soft NT ND +ve BS Extremities - No edema [employer] - Moving all 4 extremities spontaneously Psych - Calm and cooperative - Labs CBC & Chem 7: 11/05/20 06:40 11/05/20 06:40 Labs: Abnormal Lab Results - Last 24 Hours (Table) 11/05/20 11/05/20 Range/Units 06:40 06:40 WBC 12.3 H (3.8-10.6) k/uL Hgb 12.9 L (13.0-17.5) gm/dL RDW 19.0 H (11.5-15.5) % Neutrophils # 8.0 H (1.3-7.7) k/uL Monocytes # 1.3 H (0-1.0) k/uL Sodium 135 L (137-145) mmol/L BUN 31 H (9-20) mg/dL Microbiology - Last 24 Hours (Table) 11/02/20 17:54 Blood Culture - Preliminary Blood No Growth after 48 hours Assessment and Plan Assessment: 50 year old male with COPD on home oxygen, systolic chf with LVEF 25% who presents to the ED with shortness of breath. Patient states that he has been noncompliant with his medications. #acute on chronic hypoxic respiratory failure #acute on chronic systiolic congestive heart failure medication noncompliance and hypertension urgency #Hypertension urgency secondary to medication noncompliance #Elevated troponin likely due to heart failure exacerbation -Patient currently on spironolactone 25 mg daily. Lasix has been decreased to 40 mg twice a day. -Heparin drip discontinued. Cardiology does not believe that the troponin elevation is due to ACS and likely type II NH -Resume Plavix, aspirin, lisinopril, metoprolol -Patient off nitro drip -Cardiology started patient on Imdur and hydralazine. -Echocardiogram shows EF of 30-35% -Pulmonology and cardiology on board -Patient blood pressure is better controlled. He is currently satting well on room air -Awaiting for cardiology to switch patient to oral diuretics. Patient is requesting for prescription for all his cardiac meds on discharge #Coronary artery disease with stents -Resume medications as above -Hold statin due to elevated liver enzymes Elevated liver enzymes likely due to hepatic congestion -Improving -GI on board #COPD on home O2 as need -not in exacerbation -DuoNeb as needed #Medication noncompliance -Patient will need counseling on medication compliance at the time of discharge #Anxiety and depression -Resume home psych meds #Leukocytosis likely due to steroid given in the ED -Continue to monitor patient for signs and symptoms of infection. -Improving CODE STATUS:full code DVT prophylaxis: on heparin drip Anticipated length of stay > than [address]: home
--- NOTE | 2020-11-05 12:07 | PN ---
PROGRESS NOTE Mr. Wagner is a 50-year-old male with known history of coronary artery disease, cardiomyopathy, status post stenting of the RCA in March, who presented with symptoms of congestive heart failure, elevated blood pressure. He has a history of noncompliance. He is feeling better today. His breathing is better. He denies any dizziness or palpitations. He denies any nausea. He continues on aspirin once a day, Plavix 75 mg daily, Lasix 40 mg IV q.12 hours, hydralazine 50 mg 3 times a day, isosorbide mononitrate 30 mg daily, Zestril 40 mg daily and metoprolol succinate 100 mg daily. PHYSICAL EXAMINATION: Blood pressure running in the 150s with a heart rate in the 80s. Lungs no wheezes. HEART: Regular rate and rhythm S1, S2. No S3 with systolic murmur. No diastolic murmur. ABDOMEN: Soft, nontender. EXTREMITIES: No edema. LAB DATA: Revealed hemoglobin of 12.9, BUN and creatinine 31 and 1.3, potassium 4.4. IMPRESSION: 1. Symptoms of congestive heart failure with probably a combination of ischemic and nonischemic cardiomyopathy. 2. Mild troponin elevation most likely related to the heart failure and the uncontrolled blood pressure. 3. Noncompliance. 4. Chronic tobacco use. 5. Hypertension. RECOMMENDATIONS: I will switch him to oral diuretics. I will increase the dose of his hydralazine. Increase his level of activity. If he remains stable, I would expect he should be able to be discharged home in the next 48 hours. MMODL / IJN: [id number] /
--- NOTE | 2020-11-05 12:19 | PN ---
PROGRESS NOTE DATE OF DICTATION: November 05, 2020 Patient is a 50-year-old white male admitted to the hospital with exacerbation of congestive heart failure and while in the ICU was noted to have elevated serum transaminases and hence we are following him closely. He denies any symptoms today. Overall, he is feeling much better. Shortness of breath has improved. He reports no abdominal pain. No nausea, no vomiting. PHYSICAL EXAMINATION: Vital signs are stable. Blood pressure is 151/84, pulse 82, temperature 98.7. HEENT examination unremarkable. Conjunctivae pink. Sclerae anicteric. Oral cavity no lesions. Neck: No JVD or lymph node enlargement. Chest was clear to auscultation. HEART: Regular rate and rhythm. ABDOMEN: Soft. Bowel sounds are positive. No organomegaly. Extremities: No pedal edema. Neuro: He is alert and oriented x3. No focal deficits. LABS: From today WBC 12.3, hemoglobin 12.9, platelets normal. Basic metabolic panel is normal. LFTs are still pending. IMPRESSION: 1. Acute hepatitis like picture, probably medication related and part of it could be ischemic hepatitis. In any event, liver enzymes are gradually improving. Today's labs are still pending. Hepatitis serologies for A, B and C are negative and statins have been stopped at the present time. 2. Exacerbation of congestive heart failure/pulmonary edema. 3. History of coronary artery disease, history of ischemic cardiomyopathy with LV dysfunction. RECOMMENDATIONS: 1. Continue with symptomatic and supportive care. 2. Monitor LFTs closely. 3. Continue to hold statins for now. 4. Repeat labs in the morning. 5. Will follow with you closely. Thank you for this consultation. MMODL / IJN: [id number] /
[2020-11-05] MEDS: FUROSEMIDE 40 MG TAB PO SCH (15:42)
[2020-11-05] MEDS: hydrALAZINE HCL 25 MG TAB PO SCH ×2 (15:42→20:04)
[2020-11-06 07:48] LABS: Anisocytosis Slight; Basophils # (A) 0.1 k/uL (0-0.2); Basophils % (A) 1 %; Eosinophils # (A) 0.3 k/uL (0-0.7); Eosinophils % (A) 2 %; HCT 41.7 % (39.0-53.0); HGB 13.3 gm/dL (13.0-17.5); Hypochromasia Slight; Lymphocytes # (A) 1.9 k/uL (1.0-4.8); Lymphocytes % (A) 14 %; MCH 26.7 pg (25.0-35.0); MCHC 31.8 g/dL (31.0-37.0); MCV 84.1 fL (80.0-100.0); Mean Platelet Volume 7.2; Microcytosis Slight; Monocytes % (A) 7 %; Neutrophils # (A) 9.8 k/uL (1.3-7.7); Neutrophils % (A) 73 %; Platelet Count 411 k/uL (150-450); RBC 4.96 m/uL (4.30-5.90); RDW 18.6 % (11.5-15.5); WBC 13.4 k/uL (3.8-10.6)
[2020-11-06 07:58] LABS: Albumin 3.7 g/dL (3.5-5.0); Potassium 4.6 mmol/L (3.5-5.1); Total Protein 6.6 g/dL (6.3-8.2)
[2020-11-06] MEDS: FLUoxetine HCL 20 MG CAP PO SCH (08:50)
[2020-11-06] MEDS: CLOPIDOGREL 75 MG TAB PO SCH (08:50)
[2020-11-06] MEDS: ASPIRIN 81 MG PO SCH (08:50)
[2020-11-06] MEDS: buPROPion SR 150 MG TABLET.ER PO SCH (08:50)
[2020-11-06] MEDS: ISOSORBIDE MONONITRATE ER 30 MG TAB.ER.24H PO SCH (08:51)
[2020-11-06] MEDS: FUROSEMIDE 40 MG TAB PO SCH (08:51)
[2020-11-06] MEDS: hydrALAZINE HCL 25 MG TAB PO SCH (08:51)
[2020-11-06] MEDS: METOPROLOL SUCCINATE (ER) 100 MG TAB.ER.24H PO SCH (08:51)
[2020-11-06] MEDS: lisinopriL 20 MG TAB PO SCH (08:51)
[2020-11-06] MEDS: lamoTRIgine 100 MG TAB PO SCH (08:51)
[2020-11-06] MEDS: IPRATROPIUM-ALBUTEROL 3 ML NEB INHALATION SCH ×2 (08:52→12:07)
[2020-11-06] MEDS: SPIRONOLACTONE 25 MG TAB PO SCH (08:52)
[2020-11-06 11:24] VITALS: BP 132/73; PULSE 78; RESP 17; TEMP 98.4
--- NOTE | 2020-11-06 12:21 | P.DS ---
Providers Date of admission: 11/02/20 18:49 Expected date of discharge: 11/06/20 Attending physician: Manny Palacio MD Consults: 11/02/20 18:48 Consult Physician Stat Consulting Provider: Greer Reeves Consult Reason/Comments: CHF Do you want consulting provider notified?: Already Contacted Consult Physician Urgent Consulting Provider: Markus Hodges Consult Reason/Comments: CHF Do you want consulting provider notified?: Yes 11/03/20 08:31 Consult Physician Urgent Consulting Provider: Michelle Candelario Consult Reason/Comments: Elevated LFTs Do you want consulting provider notified?: Yes Primary care physician: [facility] Course: #acute on chronic hypoxic respiratory failure #acute on chronic systiolic congestive heart failure medication noncompliance and hypertension urgency #Hypertension urgency secondary to medication noncompliance #Elevated troponin likely due to heart failure exacerbation #Coronary artery disease with stents #Elevated liver enzymes likely due to hepatic congestion #COPD on home O2 as need #Medication noncompliance #Anxiety and depression #Leukocytosis likely due to steroid given in the ED 50 year old male with COPD on home oxygen, systolic chf with LVEF 25% who presented to the ED with shortness of breath. Patient states that he has been noncompliant with his medications. He presented with hypertensive urgency and respiratory failure, with mildly elevated troponin not related to ND. Patient was started on heparin gtt and nitro gtt, and cardiology was consulted for further recommendations. Pt was weaned off of nitro and heparin, with the addition of imdur and spironolactone to patient's home dose regimen. Repeat echo cardiogram during hospitalization demonstrated EF of 30-35%. With appropriate blood pressure control, patient improved back to room air. Notably, patient was previously on oxygen at home, but was saturating well on room air at rest on day of discharge. He likely warrants oxygen on ambulation only. I spent 35 minutes preparing this discharge. Assessment: Gen: awake, alert HEENT: normocephalic, atraumatic, good hearing acuity, moist mucous membranes Resp: good air exchange, breathing comfortably with no accessory muscle use CVS: good distal perfusion x 4, GI: soft, NTTP, ND : no SPT, no CVAT, calzada catheter not present MSK: no pitting edema, no clubbing Neuro: non-focal, moving all extremities Psych: cooperative, euthymic mood Patient Condition at Discharge: Good Plan - Discharge Summary New Discharge Prescriptions: New Spironolactone [Aldactone] 25 mg PO DAILY #30 tab Aspirin 81 mg PO DAILY chew Isosorbide Mononitrate ER [Imdur] 30 mg PO DAILY #30 tab.er.24h Continue FLUoxetine HCL [PROzac] 20 mg PO DAILY lamoTRIgine [LaMICtal] 200 mg PO DAILY #30 tab buPROPion SR [Wellbutrin SR] 150 mg PO BID Albuterol Inhaler [Ventolin Hfa Inhaler] 2 puff INHALATION RT-QID PRN PRN Reason: Shortness Of Breath hydrALAZINE HCL [Apresoline] 100 mg PO TID #90 tab Furosemide [Lasix] 40 mg PO BID@0900,1600 #60 tab Atorvastatin [Lipitor] 80 mg PO HS #30 tab lisinopriL 40 mg PO DAILY #30 tab Clopidogrel [Plavix] 75 mg PO DAILY 30 Days #30 tab Metoprolol Succinate (ER) [Toprol XL] 100 mg PO DAILY #30 tab Discontinued Aspirin 325 mg PO DAILY #30 tab Discharge Medication List FLUoxetine HCL [PROzac] 20 mg PO DAILY 04/25/20 [History] lamoTRIgine [LaMICtal] 200 mg PO DAILY #30 tab 07/03/20 [Rx] Albuterol Inhaler [Ventolin Hfa Inhaler] 2 puff INHALATION RT-QID PRN 11/02/20 [History] buPROPion SR [Wellbutrin SR] 150 mg PO BID 11/02/20 [History] Aspirin 81 mg PO DAILY chew 11/06/20 [Rx] Atorvastatin [Lipitor] 80 mg PO HS #30 tab 11/06/20 [Rx] Clopidogrel [Plavix] 75 mg PO DAILY 30 Days #30 tab 11/06/20 [Rx] Furosemide [Lasix] 40 mg PO BID@0900,1600 #60 tab 11/06/20 [Rx] Isosorbide Mononitrate ER [Imdur] 30 mg PO DAILY #30 tab.er.24h 11/06/20 [Rx] Metoprolol Succinate (ER) [Toprol XL] 100 mg PO DAILY #30 tab 11/06/20 [Rx] Spironolactone [Aldactone] 25 mg PO DAILY #30 tab 11/06/20 [Rx] hydrALAZINE HCL [Apresoline] 100 mg PO TID #90 tab 11/06/20 [Rx] lisinopriL 40 mg PO DAILY #30 tab 11/06/20 [Rx] Follow up Appointment(s)/Referral(s): Michelle Candelario MD [STAFF PHYSICIAN] - 2 Weeks Otf Valentine [Primary Care Provider] - 1-2 days Patient Instructions/Handouts: Heart Attack (GEN), Heart Failure (DC) Discharge Disposition: HOME SELF-CARE
--- NOTE | 2020-11-06 12:47 | P.PN ---
Subjective Progress Note Date: 11/06/20 Principal diagnosis: Elevated LFTs The patient was seen and examined sitting up in bed. He denies any acute changes through the night. He denies any abdominal pain, nausea, or vomiting. He states that shortness of breath has improved. His blood pressures have been stable. His LFTs continued to improve. He remains off his statin. Plan is for discharge home today. Objective - Vital Signs Vital signs: Vital Signs Temp 98.2 F 11/06/20 08:00 Pulse 88 11/06/20 08:00 Resp 18 11/06/20 08:00 BP 148/85 11/06/20 08:00 Pulse Ox 96 11/06/20 08:00 Intake & Output 11/05/20 11/06/20 11/06/20 18:59 06:59 18:59 Intake Total 2208 240 Output Total 2850 1250 Balance -642 -1250 240 Weight 95.9 kg Intake: Oral 2208 240 Output: Urine 2850 1250 Other: Voiding Method Urinal Urinal # Voids 1 - Exam General appearance: The patient is alert, oriented, in no acute distress. HET: Head is normocephalic and atraumatic. Conjunctiva pink. Sclera anicteric. Neck: Supple without lymphadenopathy. Abdomen: Soft, nontender, nondistended with bowel sounds. No guarding or rigidity. Extremities: Normal skin color and turgor. No pedal edema Neurological: No focal deficits. Alert and oriented 3. - Labs CBC & Chem 7: 11/06/20 07:15 11/06/20 07:15 Labs: Abnormal Lab Results - Last 24 Hours (Table) 11/06/20 11/06/20 Range/Units 07:15 07:15 WBC 13.4 H (3.8-10.6) k/uL RDW 18.6 H (11.5-15.5) % Neutrophils # 9.8 H (1.3-7.7) k/uL Sodium 134 L (137-145) mmol/L Carbon Dioxide 31 H (22-30) mmol/L BUN 28 H (9-20) mg/dL Glucose 105 H (74-99) mg/dL AST 197 H (17-59) U/L ALT 611 H (4-49) U/L Microbiology - Last 24 Hours (Table) 11/02/20 17:54 Blood Culture - Preliminary Blood No Growth after 72 hours Assessment and Plan (1) Transaminitis Narrative/Plan: Acute hepatitis likely due to medication related and part of that also likely ischemic hepatitis. Liver enzymes continue to improve. Hepatitis serologies for A, B, and C are negative and statins have been discontinued. Today's labs Total bilirubin 1.0, alkaline phosphatase 107, AST 197, ALT 611. Current Visit: Yes Status: Acute Code(s): R74.01 - ELEVATION OF LEVELS OF LIVER TRANSAMINASE LEVELS SNOMED Code(s): 180976064 (2) Acute pulmonary edema Narrative/Plan: Pulmonology following patient closely Current Visit: Yes Status: Acute Code(s): J81.0 - ACUTE PULMONARY EDEMA SNOMED Code(s): 15665096 (3) Heart failure Narrative/Plan: Cardiology following patient closely Current Visit: Yes Status: Acute Code(s): I50.9 - HEART FAILURE, UNSPECIFIED SNOMED Code(s): 23941049 Plan: 1. Continue with symptomatic and supportive care 2. Monitor LFTs daily 3. Continue to hold statins for now 4. We will continue to follow with you closely, patient recommended to follow- up with gastroenterology after discharge in 1-[address] Hernandez I agree with the dictator's note, documented as a scribe by Marianne Randall.
--- NOTE | 2020-11-06 14:38 | P.PN ---
Subjective Progress Note Date: 11/06/20 HISTORY OF PRESENT ILLNESS: Patient examined this morning at the bedside. Patient was transitioned to oral Lasix yesterday. Creatinine 1.15 today. He denies shortness of breath. Denies chest pain. Patient's hydralazine was increased yesterday. Blood pressure this morning 148/85. Patient is anxious to be discharged home today. PHYSICAL EXAM: VITAL SIGNS: Reviewed. GENERAL: Well-developed in no acute distress. NECK: Supple. No JVD or thyromegaly LUNGS: Respirations even and unlabored. Lungs essentially clear to auscultation bilaterally. HEART: Regular rate and rhythm. S1 and S2 heard. Systolic murmur noted EXTREMITIES: Normal range of motion. No clubbing or cyanosis. Peripheral pulses intact. No lower extremity edema ASSESSMENT: Acute exacerbation of chronic systolic heart failure, EF 30-35% Abnormal troponins, no evidence of acute coronary syndrome Ischemic cardiomyopathy Coronary artery disease with previous PCI to RCA Hypertension History of noncompliance Nicotine dependence PLAN: Smoking cessation encouraged Continue current cardiac medications Patient is stable for discharge home today from a cardiac perspective. He is to follow up outpatient. Nurse practitioner note has been reviewed by physician. Signing provider agrees with the documented findings, assessment, and plan of care. Objective - Vital Signs Vital signs: Vital Signs Temp 98.4 F 11/06/20 11:24 Pulse 78 11/06/20 11:24 Resp 17 11/06/20 11:24 BP 132/73 11/06/20 11:24 Pulse Ox 96 11/06/20 11:24 Intake & Output 11/05/20 11/06/20 11/06/20 18:59 06:59 18:59 Intake Total 2208 780 Output Total 2850 1250 300 Balance -642 -1250 480 Weight 95.9 kg Intake: IV 10 0.9 10 Intake, IV Titration 50 Amount cefTRIAXone 1 gm In 50 Sodium Chloride 0.9% 50 ml @ 100 mls/hr IVPB Q24HR [facility] Rx#:[id number] Oral 2208 720 Output: Urine 2850 1250 300 Other: Voiding Method Urinal Urinal Urinal # Voids 1 1 - Labs CBC & Chem 7: 11/06/20 07:15 11/06/20 07:15 Labs: Abnormal Lab Results - Last 24 Hours (Table) 11/06/20 11/06/20 Range/Units 07:15 07:15 WBC 13.4 H (3.8-10.6) k/uL RDW 18.6 H (11.5-15.5) % Neutrophils # 9.8 H (1.3-7.7) k/uL Sodium 134 L (137-145) mmol/L Carbon Dioxide 31 H (22-30) mmol/L BUN 28 H (9-20) mg/dL Glucose 105 H (74-99) mg/dL AST 197 H (17-59) U/L ALT 611 H (4-49) U/L Microbiology - Last 24 Hours (Table) 11/02/20 17:54 Blood Culture - Preliminary Blood No Growth after 72 hours
== END 2020-11-06 13:01 | disposition home or self-care (01) | DRG 280 ==
LOC: EC 17:19 → 2SICU 18:49 → 3SCARD 11-04 11:32
PROVIDERS: ADMIT Internal Medicine; ATTEND Internal Medicine
PROC: 5A09457 Assistance with Respiratory Ventilation, 24-96 Consecutive Hours, Continuous Positive Airway Pressure (ICD-10-PCS; principal; 2020-11-02)
DX: I11.0 Hypertensive heart disease with heart failure (principal); J96.21 Acute and chronic respiratory failure with hypoxia; I21.A1 Myocardial infarction type 2; I50.23 Acute on chronic systolic (congestive) heart failure; K75.89 Other specified inflammatory liver diseases; J44.9 Chronic obstructive pulmonary disease, unspecified; M06.9 Rheumatoid arthritis, unspecified; F11.21 Opioid dependence, in remission; Z20.822 Contact with and (suspected) exposure to COVID-19; I16.0 Hypertensive urgency; K76.0 Fatty (change of) liver, not elsewhere classified; K76.1 Chronic passive congestion of liver; K75.9 Inflammatory liver disease, unspecified; I25.82 Chronic total occlusion of coronary artery; I25.5 Ischemic cardiomyopathy; I25.10 Atherosclerotic heart disease of native coronary artery without angina pectoris; E78.00 Pure hypercholesterolemia, unspecified; K21.9 Gastro-esophageal reflux disease without esophagitis; E78.5 Hyperlipidemia, unspecified; I08.1 Rheumatic disorders of both mitral and tricuspid valves; I25.2 Old myocardial infarction; F32.9 Major depressive disorder, single episode, unspecified; F41.9 Anxiety disorder, unspecified; D72.829 Elevated white blood cell count, unspecified; T38.0X5A Adverse effect of glucocorticoids and synthetic analogues, initial encounter; M19.90 Unspecified osteoarthritis, unspecified site; Z91.19 Patient's noncompliance with other medical treatment and regimen; T50.916A Underdosing of multiple unspecified drugs, medicaments and biological substances, initial encounter; Z91.120 Patient's intentional underdosing of medication regimen due to financial hardship; F17.210 Nicotine dependence, cigarettes, uncomplicated; Z71.6 Tobacco abuse counseling; Z99.81 Dependence on supplemental oxygen; Z79.82 Long term (current) use of aspirin; Z79.02 Long term (current) use of antithrombotics/antiplatelets; Z79.899 Other long term (current) drug therapy; Z95.5 Presence of coronary angioplasty implant and graft; Z87.81 Personal history of (healed) traumatic fracture; Z82.49 Family history of ischemic heart disease and other diseases of the circulatory system; Z83.2 Family history of diseases of the blood and blood-forming organs and certain disorders involving the immune mechanism
CPT/HCPCS: 36415; 71045; 76705; 80048; 80053; 80074; 82803; 83605; 83735; 83880; 84484; 85025; 85610; 85730; 87040; 87635; 93005; 93306; 94640; 94660; 96365; 96366; 96368; 96375; 96376; 99291

== ENCOUNTER 2021-08-13 17:29 | Inpatient (IN) | payer OTHER ==
[2021-08-13] MEDS ORDERED: ACETAMINOPHEN TAB 500 MG TAB PO STA (19:32)
[2021-08-13] MEDS ORDERED: IBUPROFEN 600 MG TAB PO STA (19:32)
[2021-08-13] MEDS ORDERED: LIDOCAINE 1% INJ 10MG/ML (20 ML MDV) SQ ONE (19:33)
[2021-08-13] MEDS ORDERED: SODIUM CHLORIDE 0.9% 1,000 ML IV STA ×2 (19:33→22:26)
[2021-08-13] MEDS ORDERED: cefTRIAXone IN SWFI 1,000 MG/10 ML SYRINGE IVP STA (19:33)
[2021-08-13] MEDS ORDERED: RX INFO: IV CONTRAST WAS GIVEN 1 EACH MISC MISCELLANE PRN (19:37)
--- NOTE | 2021-08-13 19:37 | ED ---
General Adult HPI - General Chief complaint: Skin/Abscess/Foreign Body Stated complaint: sob Time Seen by Provider: 08/13/21 19:10 Source: patient Mode of arrival: ambulatory Limitations: no limitations - History of Present Illness Initial comments: 51-year-old male with a past medical history of CAD, COPD, GERD, hypertension presents to the emergency room for a chief complaint of infection on back. Patient has had an infection on his back for the past 5 days. He states it is painful and he does not feel well. Patient did go to [facility] today and they sent him to the emergency room. Patient has no other complaints at this time including shortness of breath, chest pain, abdominal pain, nausea or vomiting, headache, or visual changes. - Related Data Home Medications Medication Instructions Recorded Confirmed FLUoxetine HCL [PROzac] 20 mg PO DAILY 04/25/20 11/02/20 Albuterol Inhaler [Ventolin Hfa 2 puff INHALATION RT-QID PRN 11/02/20 11/02/20 Inhaler] buPROPion SR [Wellbutrin SR] 150 mg PO BID 11/02/20 11/02/20 Previous Rx's Medication Instructions Recorded lamoTRIgine [LaMICtal] 200 mg PO DAILY #30 tab 07/03/20 Aspirin 81 mg PO DAILY chew 11/06/20 Atorvastatin [Lipitor] 80 mg PO HS #30 tab 11/06/20 Clopidogrel [Plavix] 75 mg PO DAILY 30 Days #30 tab 11/06/20 Furosemide [Lasix] 40 mg PO BID@0900,1600 #60 tab 11/06/20 Isosorbide Mononitrate ER [Imdur] 30 mg PO DAILY #30 tab.er.24h 11/06/20 Metoprolol Succinate (ER) [Toprol 100 mg PO DAILY #30 tab 11/06/20 XL] Spironolactone [Aldactone] 25 mg PO DAILY #30 tab 11/06/20 hydrALAZINE HCL [Apresoline] 100 mg PO TID #90 tab 11/06/20 lisinopriL 40 mg PO DAILY #30 tab 11/06/20 Allergies Allergy/AdvReac Type Severity Reaction Status Date / Time codeine Allergy Vomiting Verified 08/13/21 18:42 Review of Systems ROS Statement: Those systems with pertinent positive or pertinent negative responses have been documented in the HPI. ROS Other: All systems not noted in ROS Statement are negative. Past Medical History Past Medical History: Coronary Artery Disease (CAD), Chest Pain / Angina, COPD, GERD/Reflux, Hypertension, Myocardial Infarction ([place]), Osteoarthritis (OA), Rheumatoid Arthritis (RA) Additional Past Medical History / Comment(s): Opiate addiction remission since 2014. Last Myocardial Infarction Date:: 04/25/2020 History of Any Multi-Drug Resistant Organisms: None Reported Past Surgical History: Heart Catheterization With Stent Additional Past Surgical History / Comment(s): R foot reconstruction post crushing injury. Xience stent to RCA 04/25/2020 Past Anesthesia/Blood Transfusion Reactions: No Reported Reaction Date of Last Stent Placement:: 04/25/2020 Past Psychological History: Anxiety, Depression Smoking Status: Current every day smoker Past Alcohol Use History: None Reported Past Drug Use History: Opiates - Past Family History Father Family Medical History: Hypertension Additional Family Medical History / Comment(s): PE Mother Family Medical History: No Reported History General Exam Limitations: no limitations General appearance: alert, in no apparent distress Head exam: Present: atraumatic Eye exam: Present: normal appearance, PERRL, EOMI. Absent: scleral icterus, conjunctival injection ENT exam: Present: normal exam, mucous membranes moist Neck exam: Present: normal inspection, full ROM. Absent: tenderness, meningismus Respiratory exam: Present: normal lung sounds bilaterally. Absent: respiratory distress, wheezes Cardiovascular Exam: Present: regular rate, normal rhythm, normal heart sounds GI/Abdominal exam: Present: soft, normal bowel sounds. Absent: distended, tenderness Back exam: Present: other (10 cm x 10 cm area of erythema with induration on upper back) Course Vital Signs 08/13/21 18:39 Temperature 102 F H Pulse Rate 113 H Respiratory 20 Rate Blood Pressure 159/95 O2 Sat by Pulse 97 Oximetry Medical Decision Making - Medical Decision Making He presents with a 102 fever and reflects a tachycardia. Patient has a 10 cm x 10 cm area of erythema consistent with cellulitis and possible abscess. I did attempt to incise and drain this, no purulent material expelled. CBC reveals leukocytosis of 26 with a left shift. CMP reveals dehydration. Chest CT with contrast showed a moderately diffuse inflammatory change involving the thoracic spine posterior paraspinals subcutaneous soft tissues compatible with cellulitis or phlegmon. No drainable fluid collection. Patient will benefit from IV antibiotics. Started on Rocephin and vancomycin. Vitals are stable, not requiring 30 mL/kg of fluids. Nimesh accepted admission. - Lab Data Result diagrams: 08/13/21 20:17 08/13/21 20:17 Lab Results 08/13/21 08/13/21 08/13/21 Range/Units 20:17 20:17 20:17 WBC 26.6 H (3.8-10.6) k/uL RBC 5.19 (4.30-5.90) m/uL Hgb 14.6 (13.0-17.5) gm/dL Hct 44.7 (39.0-53.0) % MCV 86.0 (80.0-100.0) fL MCH 28.1 (25.0-35.0) pg MCHC 32.7 (31.0-37.0) g/dL RDW 15.2 (11.5-15.5) % Plt Count 311 (150-450) k/uL MPV 7.9 Neutrophils % 84 % Lymphocytes % 8 % Monocytes % 6 % Eosinophils % 1 % Basophils % 1 % Neutrophils # 22.3 H (1.3-7.7) k/uL Lymphocytes # 2.0 (1.0-4.8) k/uL Monocytes # 1.5 H (0-1.0) k/uL Eosinophils # 0.2 (0-0.7) k/uL Basophils # 0.2 (0-0.2) k/uL Sodium 135 L (137-145) mmol/L Potassium 4.6 (3.5-5.1) mmol/L Chloride 105 (98-107) mmol/L Carbon Dioxide 21 L (22-30) mmol/L Anion Gap 9 mmol/L BUN 26 H (9-20) mg/dL Creatinine 1.01 (0.66-1.25) mg/dL Est GFR (CKD-EPI)AfAm >90 (>60 ml/min/1.73 sqM) Est GFR (CKD-EPI)NonAf 87 (>60 ml/min/1.73 sqM) Glucose 130 H (74-99) mg/dL Plasma Lactic Acid Cali 1.2 (0.7-2.0) mmol/L Calcium 9.2 (8.4-10.2) mg/dL Total Bilirubin 0.9 (0.2-1.3) mg/dL AST 38 (17-59) U/L ALT 46 (4-49) U/L Alkaline Phosphatase 79 (38-126) U/L Total Protein 6.9 (6.3-8.2) g/dL Albumin 3.8 (3.5-5.0) g/dL Disposition Clinical Impression: Cellulitis, Leukocytosis, Fever, Dehydration Disposition: ADMITTED IP TO THIS HOSP Is patient prescribed a controlled substance at d/c from ED?: No Referrals: Wilfrido Mejia MD [Primary Care Provider] - 1-2 days Time of Disposition: 22:25
[2021-08-13 20:27] LABS: Basophils # (A) 0.2 k/uL (0-0.2); Basophils % (A) 1 %; Eosinophils # (A) 0.2 k/uL (0-0.7); Eosinophils % (A) 1 %; HCT 44.7 % (39.0-53.0); HGB 14.6 gm/dL (13.0-17.5); Lymphocytes % (A) 8 %; MCH 28.1 pg (25.0-35.0); MCHC 32.7 g/dL (31.0-37.0); Mean Platelet Volume 7.9; Monocytes # (A) 1.5 k/uL (0-1.0); Monocytes % (A) 6 %; Neutrophils # (A) 22.3 k/uL (1.3-7.7); Neutrophils % (A) 84 %; Platelet Count 311 k/uL (150-450); RBC 5.19 m/uL (4.30-5.90); RDW 15.2 % (11.5-15.5); WBC 26.6 k/uL (3.8-10.6)
[2021-08-13 20:37] LABS: ALT 46 U/L (4-49); AST 38 U/L (17-59); African American GFR (CKD) >90 (>60 ml/min/1.73 sqM); Albumin 3.8 g/dL (3.5-5.0); Alkaline Phosphatase 79 U/L (38-126); Anion Gap 9 mmol/L; Blood Urea Nitrogen 26 mg/dL (9-20); Calcium 9.2 mg/dL (8.4-10.2); Carbon Dioxide 21 mmol/L (22-30); Chloride 105 mmol/L (98-107); Glucose 130 mg/dL (74-99); Non-African American GFR(CKD) 87 (>60 ml/min/1.73 sqM); Sodium 135 mmol/L (137-145); Total Bilirubin 0.9 mg/dL (0.2-1.3); Total Protein 6.9 g/dL (6.3-8.2)
[2021-08-13 20:40] LABS: Potassium 4.6 mmol/L (3.5-5.1)
--- NOTE | 2021-08-13 21:32 | CT ---
EXAMINATION TYPE: CT chest w con DATE OF EXAM: 08/13/2021 COMPARISON: Radiograph 11/03/2020. HISTORY: Large abscess on back x5 days CT DLP: 575.3 mGycm Automated exposure control for dose reduction was used. TECHNIQUE: CT scan of the chest is performed with IV Contrast, patient injected with 100 mL of Isovue 300. MIP Images are created on CT scanner and reviewed. 3D reconstructed images are created on an independent workstation and reviewed. FINDINGS: LUNGS: The lungs are grossly clear, there is no concerning parenchymal mass or nodule identified. T here is no pleural effusion or pneumothorax seen. The tracheobronchial tree is patent. MEDIASTINUM: There are no greater than 1 cm hilar or mediastinal lymph nodes. No pericardial effusi on is seen. OTHER: Diffuse fat stranding involving the thoracic spine posterior paraspinal subcutaneous soft tis sues. Areas of confluent edema seen. No significant drainable or rim-enhancing fluid collection. No s oft tissue gas. Mild gynecomastia seen bilaterally. IMPRESSION: Moderately diffuse inflammatory changes involving the thoracic spine posterior paraspinal subcutaneou s soft tissues. Findings are compatible with cellulitis/phlegmon in the appropriate clinical setting. No significant drainable fluid collection at this time. Otherwise no acute intrathoracic abnormality.
[2021-08-13] MEDS ORDERED: VANCOMYCIN IV PER PHARMACY 1 EACH MISC MISCELLANE PRN (22:22)
[2021-08-13] MEDS ORDERED: ACETAMINOPHEN TAB 325 MG TAB PO PRN (22:27)
[2021-08-13] MEDS ORDERED: NALOXONE 0.4 MG/ML 1 ML VIAL IV PRN (22:27)
[2021-08-13] MEDS ORDERED: VANCOMYCIN 1,500 MG in SODIUM CHLORIDE 0.9% 250 ML IVPB ONE (22:45)
[2021-08-13] MEDS ORDERED: HYDROmorphone 0.5 MG/0.5 ML SYRINGE IVP STA (23:52)
[2021-08-13] MEDS ORDERED: ONDANSETRON 4 MG/2 ML VIAL IVP STA (23:52)
[2021-08-14] MEDS: HYDROmorphone 0.5 MG/0.5 ML SYRINGE IVP PRN ×4 (04:32→23:02)
[2021-08-14] MEDS: IBUPROFEN 600 MG TAB PO PRN ×2 (07:42→16:50)
[2021-08-14] MEDS ORDERED: ALBUTEROL HFA INHALER INHALATION PRN (07:57)
[2021-08-14] MEDS: lisinopriL 20 MG TAB PO SCH (08:27)
[2021-08-14] MEDS: FUROSEMIDE 40 MG TAB PO SCH (08:27)
[2021-08-14] MEDS: SPIRONOLACTONE 25 MG TAB PO SCH (08:27)
[2021-08-14] MEDS: METOPROLOL SUCCINATE (ER) 100 MG TAB.ER.24H PO SCH (08:27)
[2021-08-14] MEDS: FLUoxetine HCL 20 MG CAP PO SCH (08:28)
[2021-08-14] MEDS ORDERED: cefTRIAXone IN SWFI 1,000 MG/10 ML SYRINGE IVP SCH (09:00)
[2021-08-14] MEDS: VANCOMYCIN 1,500 MG in SODIUM CHLORIDE 0.9% 250 ML IVPB SCH ×2 (11:51→23:05)
[2021-08-14 13:03] LABS: Basophils # (A) 0.1 k/uL (0-0.2); Basophils % (A) 1 %; Eosinophils # (A) 0.4 k/uL (0-0.7); Eosinophils % (A) 1 %; HCT 45.3 % (39.0-53.0); Lymphocytes # (A) 2.3 k/uL (1.0-4.8); Lymphocytes % (A) 9 %; MCH 27.4 pg (25.0-35.0); MCHC 30.9 g/dL (31.0-37.0); MCV 88.5 fL (80.0-100.0); Mean Platelet Volume 7.9; Monocytes # (A) 1.1 k/uL (0-1.0); Monocytes % (A) 4 %; Neutrophils % (A) 84 %; Platelet Count 308 k/uL (150-450); RBC 5.12 m/uL (4.30-5.90); RDW 15.1 % (11.5-15.5); WBC 26.4 k/uL (3.8-10.6)
[2021-08-14 13:20] LABS: African American GFR (CKD) >90 (>60 ml/min/1.73 sqM); Anion Gap 8 mmol/L; Blood Urea Nitrogen 27 mg/dL (9-20); Calcium 9.1 mg/dL (8.4-10.2); Carbon Dioxide 28 mmol/L (22-30); Chloride 100 mmol/L (98-107); Glucose 208 mg/dL (74-99); Non-African American GFR(CKD) 79 (>60 ml/min/1.73 sqM); Potassium 4.9 mmol/L (3.5-5.1); Sodium 136 mmol/L (137-145)
[2021-08-14 13:45] LABS: C Reactive Protein 16.9 mg/dL (<1.0)
--- NOTE | 2021-08-14 16:33 | P.HPIM ---
History of Present Illness H&P Date: 08/14/21 Chief Complaint: Skin Abscess/Foreign Body 51-year-old male with a past medical history of CAD, COPD, GERD, hypertension presents to the emergency room for a chief complaint of infection on back. Patient has had an infection on his back for the past 5 days. He states it is painful and he does not feel well. Patient did go to [facility] today and they sent him to the emergency room. Patient has no other complaints at this time including shortness of breath, chest pain, abdominal pain, nausea or vomiting, headache, or visual changes. In the ED patient was found to have a 102 fever and tachycardia. Patient has a 10 cm x 10 cm area of erythema consistent with cellulitis and possible abscess. Incision and drainage was attempted in ED, no purulent material expelled. CBC reveals leukocytosis of 26 with a left shift. CMP reveals dehydration. Chest CT with contrast showed a moderately diffuse inflammatory change involving the thoracic spine posterior paraspinals subcutaneous soft tissues compatible with cellulitis or phlegmon. No drainable fluid collection. Patient will benefit from IV antibiotics. Started on Rocephin and vancomycin. Review of Systems REVIEW OF SYSTEMS: CONSTITUTIONAL: No fever, no malaise, no fatigue. HEENT: No recent visual problems or hearing problems. Denied any sore throat. CARDIOVASCULAR: No chest pain, orthopnea, PND, no palpitations, no syncope. PULMONARY: No shortness of breath, no cough, no hemoptysis. GASTROINTESTINAL: No diarrhea, no nausea, no vomiting, no abdominal pain. NEUROLOGICAL: No headaches, no weakness, no numbness. HEMATOLOGICAL: Denies any bleeding or petechiae. GENITOURINARY: Denies any burning micturition, frequency, or urgency. MUSCULOSKELETAL/RHEUMATOLOGICAL: Denies any joint pain, swelling, or any muscle pain. ENDOCRINE: Denies any polyuria or polydipsia. The rest of the 14-point review of systems is negative. Past Medical History Past Medical History: Coronary Artery Disease (CAD), Chest Pain / Angina, COPD, GERD/Reflux, Hypertension, Myocardial Infarction ([place]), Osteoarthritis (OA), Pneumonia, Rheumatoid Arthritis (RA) Additional Past Medical History / Comment(s): Opiate addiction remission since 2014. Last Myocardial Infarction Date:: 04/25/2020 History of Any Multi-Drug Resistant Organisms: None Reported Past Surgical History: Heart Catheterization With Stent Additional Past Surgical History / Comment(s): R foot reconstruction post crushing injury. Xience stent to RCA 04/25/2020 Past Anesthesia/Blood Transfusion Reactions: No Reported Reaction Date of Last Stent Placement:: 04/25/2020 Past Psychological History: Anxiety, Depression Smoking Status: Current every day smoker Past Alcohol Use History: None Reported Past Drug Use History: Opiates Additional Drug Use History / Comment(s): smokes 1/2 ppd - Past Family History Father Family Medical History: Hypertension, Pulmonary Embolus Additional Family Medical History / Comment(s): PE Mother Family Medical History: No Reported History Medications and Allergies Home Medications Medication Instructions Recorded Confirmed Type FLUoxetine HCL [PROzac] 20 mg PO DAILY 04/25/20 08/13/21 History Albuterol Inhaler [Ventolin Hfa 2 puff INHALATION RT-QID PRN 11/02/20 08/13/21 History Inhaler] Atorvastatin [Lipitor] 80 mg PO HS #30 tab 11/06/20 08/13/21 Rx Metoprolol Succinate (ER) [Toprol 100 mg PO DAILY #30 tab 11/06/20 08/13/21 Rx XL] Spironolactone [Aldactone] 25 mg PO DAILY #30 tab 11/06/20 08/13/21 Rx lisinopriL 40 mg PO DAILY #30 tab 11/06/20 08/13/21 Rx Furosemide [Lasix] 40 mg PO DAILY 08/13/21 08/13/21 History Allergies Allergy/AdvReac Type Severity Reaction Status Date / Time codeine Allergy Vomiting Verified 08/13/21 22:28 Physical Exam Vitals: Vital Signs Temp Pulse Pulse Resp BP BP Pulse Ox 08/14/21 07:00 98.3 F 111 H 18 162/112 98 08/14/21 00:49 97.9 F 18 139/87 97 08/14/21 00:00 97.9 F 73 18 137/78 98 08/13/21 18:39 102 F H 113 H 20 159/95 97 Intake and Output 08/13/21 08/14/21 08/14/21 22:59 06:59 14:59 Other: Voiding Method Toilet Toilet # Voids 1 Weight 81.647 kg 81.647 kg PHYSICAL EXAMINATION: GENERAL: The patient is alert and oriented x3, not in any acute distress. Well developed, well nourished. HEENT: Pupils are round and equally reacting to light. EOMI. No scleral icterus. No conjunctival pallor. Normocephalic, atraumatic. No pharyngeal erythema. No thyromegaly. CARDIOVASCULAR: S1 and S2 present. No murmurs, rubs, or gallops. PULMONARY: Chest is clear to auscultation, no wheezing or crackles. ABDOMEN: Soft, nontender, nondistended, normoactive bowel sounds. No palpable or ganomegaly. MUSCULOSKELETAL: No joint swelling or deformity. EXTREMITIES: No cyanosis, clubbing, or pedal edema. NEUROLOGICAL: Gross neurological examination did not reveal any focal deficits. SKIN: 10 cm x 10 cm area of erythema consistent with cellulitis and possible abscess Results CBC & Chem 7: 08/14/21 12:54 08/14/21 12:54 Labs: Abnormal Lab Results - Last 24 Hours (Table) 08/13/21 08/13/21 Range/Units 20:17 20:17 WBC 26.6 H (3.8-10.6) k/uL Neutrophils # 22.3 H (1.3-7.7) k/uL Monocytes # 1.5 H (0-1.0) k/uL Sodium 135 L (137-145) mmol/L Carbon Dioxide 21 L (22-30) mmol/L BUN 26 H (9-20) mg/dL Glucose 130 H (74-99) mg/dL Thrombosis Risk Factor Assmnt - Choose All That Apply Each Factor Represents 1 point: Abnormal pulmonary function (COPD), Age 41-60 years, Obesity (BMI >25) Each Risk Factor Represents 3 Points: Family history of DVT/PE Thrombosis Risk Factor Assessment Total Risk Factor Score: 6 Thrombosis Risk Factor Assessment Level: High Risk Assessment and Plan Assessment: 1. Chest wall abscess/cellulitis - Patient has been placed on IV Rocephin and vancomycin with pharmacy dosing service; blood cultures and abscess cultures are obtained and pending; ID has been consulted and recommendations are awaited - Further recommendations after culture results are available 2. Sepsis secondary to 1; white blood count is elevated at 26.6; we will monitor CBC, CMP and pro-calcitonin closely 3. Uncontrolled hypertension; we will resume home antihypertensive therapy with plan to make adjustments if blood pressure remains elevated; lisinopril 40 mg daily, metoprolol 100 mg daily 4. COPD; not in exacerbation; we will continue with home inhaler therapy 5. Coronary artery disease; stable on aspirin, statins and beta blockers 6. Hyperlipidemia; Lipitor 80 mg by mouth daily at bedtime 7. Depression; Prilosec 20 mg daily DVT prophylaxis SCDs; we'll hold off on anticoagulation given abscess on the back which might be drainage CODE STATUS; full code
[2021-08-14] MEDS: ATORVASTATIN 80 MG TAB PO SCH (21:13)
--- NOTE | 2021-08-14 22:38 | P.CONS ---
History of Present Illness - Reason for Consult Consult date: 08/14/21 upper back abscess Requesting physician: Edy Camarena - Chief Complaint painful lump to upper back x 5 days - History of Present Illness History of present illness : Patient is 51-year male presenting to the ER for evaluation of painful lump to the upper back area that has been getting worse for the last 5 days patient mention it may have started as a small pimple that has got increased in size very quickly over the last 5 days patient be complaining of pain to the affected area describing to be more of a throbbing intensity is almost 10 out of 10 especially when it is touched and did have a some purulent drainage patient was seen in urgent care subsequent has been sent to the ER for further evaluation on presentation to the hospital patient did have a fever of 102 F patient did have white count of 26,000 her repeat is 26.4 kidney function has been normal min PCR was negative there was an attempt to drain the area which was not successful patient was started on Rocephin and vancomycin admitted to hospital infectious disease was consulted for further management of antibiotic therapy, patient did have a CT completed which did not show any drainable abscess Review of system: CONSTITUTIONAL: Positive for weakness along with the fever. EYES: No complaint. ENT: No complaint. RESPIRATORY: No complaint. CARDIOVASCULAR: No complaint. GENITOURINARY: No complaint. GASTROINTESTINAL: No complaint. MUSCULOSKELETAL: As per history of present illness. INTEGUMENTARY: As per history of present illness. PSYCHOLOGIC: No complaint. ENDOCRINE: No complaint. NEUROLOGIC: No complaint. Past medical history : Reviewed, documented below Past surgical history : Reviewed, documented below Social history: Reviewed, documented below Medications: Reviewed, as documented below EXAMINATION: Vital sigans= Reviewed and documented below GENERAL DESCRIPTION: Middle-aged male lying in bed, no distress. No tachypnea or accessory muscle of respiration use. HEENT: Shows Pallor , no scleral icterus. Oral mucous membrane is dry. NECK: Trachea central, no thyromegaly. LUNGS: Unlabored breathing. Clear to auscultation anteriorly. No wheeze or crack le. HEART: S1, S2, regular rate and rhythm. ABDOMEN: Soft, no tenderness , guarding or rigidity EXTREMITIES: No edema of feet. SKIN: No rash, no masses palpable. Examination of the upper back which was in the area of induration swelling redness with minimal pressure purulent material came out which was cultured NEUROLOGICAL: The patient is awake, alert, oriented x3, mood and affect normal. LABS AND RADIOLOGY: Reviewed results see below Assessment : Patient presented to hospital with sepsis in this we did have fever elevated white count source is upper back abscess which may have started with a small pimple and more likely from gram-positive skin such as staph and MRSA gram-negative infection less likely would not entirely excluded Plan: 1-patient benefit from surgical drainage of this abscess with clinically there is evidence of an abscess even though CT did not show it 2-vancomycin pharmacy to dose with a target trough of 15 while watching kidney function and Vanco trough closely. 3-preparatory dressing to the area We will follow on clinical condition and cultures to further adjust medication if needed Thank you for this consultation we will follow the patient along with you Past Medical History Past Medical History: Coronary Artery Disease (CAD), Chest Pain / Angina, COPD, GERD/Reflux, Hypertension, Myocardial Infarction ([place]), Osteoarthritis (OA), Pneumonia, Rheumatoid Arthritis (RA) Additional Past Medical History / Comment(s): Opiate addiction remission since 2014. Last Myocardial Infarction Date:: 04/25/2020 History of Any Multi-Drug Resistant Organisms: None Reported Past Surgical History: Heart Catheterization With Stent Additional Past Surgical History / Comment(s): R foot reconstruction post crushing injury. Xience stent to RCA 04/25/2020 Past Anesthesia/Blood Transfusion Reactions: No Reported Reaction Date of Last Stent Placement:: 04/25/2020 Past Psychological History: Anxiety, Depression Smoking Status: Current every day smoker Past Alcohol Use History: None Reported Past Drug Use History: Opiates Additional Drug Use History / Comment(s): smokes 1/2 ppd - Past Family History Father Family Medical History: Hypertension, Pulmonary Embolus Additional Family Medical History / Comment(s): PE Mother Family Medical History: No Reported History Medications and Allergies Home Medications Medication Instructions Recorded Confirmed Type FLUoxetine HCL [PROzac] 20 mg PO DAILY 04/25/20 08/13/21 History Albuterol Inhaler [Ventolin Hfa 2 puff INHALATION RT-QID PRN 11/02/20 08/13/21 History Inhaler] Atorvastatin [Lipitor] 80 mg PO HS #30 tab 11/06/20 08/13/21 Rx Metoprolol Succinate (ER) [Toprol 100 mg PO DAILY #30 tab 11/06/20 08/13/21 Rx XL] Spironolactone [Aldactone] 25 mg PO DAILY #30 tab 11/06/20 08/13/21 Rx lisinopriL 40 mg PO DAILY #30 tab 11/06/20 08/13/21 Rx Furosemide [Lasix] 40 mg PO DAILY 08/13/21 08/13/21 History Allergies Allergy/AdvReac Type Severity Reaction Status Date / Time codeine Allergy Vomiting Verified 08/13/21 22:28 Physical Exam Vitals: Vital Signs Temp Pulse Pulse Resp BP BP Pulse Ox 08/14/21 07:00 98.3 F 111 H 18 162/112 98 08/14/21 00:49 97.9 F 18 139/87 97 08/14/21 00:00 97.9 F 73 18 137/78 98 08/13/21 18:39 102 F H 113 H 20 159/95 97 Intake and Output 08/13/21 08/14/21 08/14/21 22:59 06:59 14:59 Other: Voiding Method Toilet Toilet # Voids 1 Weight 81.647 kg 81.647 kg Results CBC & Chem 7: 08/14/21 12:54 08/14/21 12:54 Labs: Abnormal Lab Results - Last 24 Hours (Table) 08/13/21 08/13/21 Range/Units 20:17 20:17 WBC 26.6 H (3.8-10.6) k/uL Neutrophils # 22.3 H (1.3-7.7) k/uL Monocytes # 1.5 H (0-1.0) k/uL Sodium 135 L (137-145) mmol/L Carbon Dioxide 21 L (22-30) mmol/L BUN 26 H (9-20) mg/dL Glucose 130 H (74-99) mg/dL
[2021-08-15] MEDS: HYDROmorphone 0.5 MG/0.5 ML SYRINGE IVP PRN ×4 (02:40→14:32)
[2021-08-15] MEDS: FUROSEMIDE 40 MG TAB PO SCH (08:35)
[2021-08-15] MEDS: lisinopriL 20 MG TAB PO SCH (08:35)
[2021-08-15] MEDS: FLUoxetine HCL 20 MG CAP PO SCH (08:35)
[2021-08-15] MEDS: METOPROLOL SUCCINATE (ER) 100 MG TAB.ER.24H PO SCH (08:35)
[2021-08-15] MEDS: SPIRONOLACTONE 25 MG TAB PO SCH (08:35)
[2021-08-15 09:05] LABS: Basophils # (A) 0.1 k/uL (0-0.2); Basophils % (A) 1 %; Eosinophils # (A) 0.2 k/uL (0-0.7); Eosinophils % (A) 1 %; HCT 43.8 % (39.0-53.0); HGB 13.6 gm/dL (13.0-17.5); Lymphocytes # (A) 1.4 k/uL (1.0-4.8); Lymphocytes % (A) 6 %; MCH 27.4 pg (25.0-35.0); MCHC 31.2 g/dL (31.0-37.0); MCV 87.9 fL (80.0-100.0); Mean Platelet Volume 7.9; Monocytes # (A) 0.9 k/uL (0-1.0); Monocytes % (A) 4 %; Neutrophils % (A) 87 %; Platelet Count 299 k/uL (150-450); RBC 4.98 m/uL (4.30-5.90); WBC 22.9 k/uL (3.8-10.6)
[2021-08-15 09:26] LABS: African American GFR (CKD) >90 (>60 ml/min/1.73 sqM); Anion Gap 8 mmol/L; Blood Urea Nitrogen 24 mg/dL (9-20); Calcium 8.7 mg/dL (8.4-10.2); Carbon Dioxide 22 mmol/L (22-30); Chloride 102 mmol/L (98-107); Glucose 280 mg/dL (74-99); Non-African American GFR(CKD) >90 (>60 ml/min/1.73 sqM); Potassium 4.5 mmol/L (3.5-5.1); Sodium 132 mmol/L (137-145)
[2021-08-15] MEDS: VANCOMYCIN 1,500 MG in SODIUM CHLORIDE 0.9% 250 ML IVPB SCH ×2 (10:12→22:27)
--- NOTE | 2021-08-15 15:28 | P.GSCN ---
History of Present Illness Consult date: 08/15/21 History of present illness: CHIEF COMPLAINT: Back abscess HISTORY OF PRESENT ILLNESS: This is a 51-year-old male who presented to the hospital with complaints of developing back abscess over the last 3-5 days. He denies any prior history to abscess. He reports that it started out as a pimple and continued to get bigger. Denies any history of diabetes or MRSA. Patient currently on IV antibiotics. He has been seen by infectious disease. The abscess is actively draining. Patient did have a fever of 102 on admission. He has been tachycardic with leukocytosis. PAST MEDICAL HISTORY: Coronary artery disease with cardiac stents placed in March 2020, GERD, hype rtension, myocardial infarction, osteoarthritis, rheumatoid arthritis PAST SURGICAL HISTORY: Cardiac stents MEDICATIONS: See list. ALLERGIES: See list. SOCIAL HISTORY: No illicit drug use. Smoker. Prior history of opiate addiction now in remission since 2014 REVIEW OF SYSTEMS: CONSTITUTIONAL: Denies fever or chills. HEENT: Denies blurred vision, vision changes, or eye pain. Denies hemoptysis CARDIOVASCULAR: Denies chest pain or pressure. RESPIRATORY: No shortness of breath. GASTROINTESTINAL: Denies any nausea or vomiting or bowel movement changes HEMATOLOGIC: Denies bleeding disorders. GENITOURINARY: Denies any blood in urine or increased urinary frequency. SKIN: Denies pruitis. Denies rash. PHYSICAL EXAM: VITAL SIGNS: Reviewed GENERAL: Well-developed in no acute distress. HEENT: No sclera icterus. Extraocular movements grossly intact. Moist buccal mucosa. Head is atraumatic, normocephalic. No nasal drainage. ABDOMEN: Soft. Nondistended. Nontender NEUROLOGIC: Alert and oriented. Cranial nerves II through XII grossly intact. Back: Patient has a large back abscess. Area of induration and erythema about 10 cm in length and 6 cm in width. With a Centerpoint with purulent drainage. Area is tender with palpation. LABORATORY DATA: WBC 26.6-22.9 hemoglobin 13.6 platelets 299 Sodium 132 potassium 4.5 BUN 24 creatinine 0.86 Lactic acid 1.5 Procalcitonin 0.43 CRP 19 COVID-19 not detected IMAGING: CT chest shows moderately diffuse inflammatory changes involving the thoracic spine posterior paraspinal subcutaneous soft tissues. Findings are compatible with cellulitis/phlegmon in appropriate clinical setting. No significant drainable fluid collection at this time. No acute intrathoracic abnormality ASSESSMENT: 1. Back abscess that is actively draining PLAN: -Continue IV antibiotics -Apply warm compresses -Patient may shower -Continue supportive care -Continue to observe Physician Ice Skater note has been reviewed by physician. Signing provider agrees with the documented findings, assessment, and plan of care. Past Medical History Past Medical History: Coronary Artery Disease (CAD), Chest Pain / Angina, COPD, GERD/Reflux, Hypertension, Myocardial Infarction (AR), Osteoarthritis (OA), Pneumonia, Rheumatoid Arthritis (RA) Additional Past Medical History / Comment(s): Opiate addiction remission since 2014. Last Myocardial Infarction Date:: 04/25/2020 History of Any Multi-Drug Resistant Organisms: None Reported Past Surgical History: Heart Catheterization With Stent Additional Past Surgical History / Comment(s): R foot reconstruction post crushing injury. Xience stent to RCA 04/25/2020 Past Anesthesia/Blood Transfusion Reactions: No Reported Reaction Date of Last Stent Placement:: 04/25/2020 Past Psychological History: Anxiety, Depression Smoking Status: Current every day smoker Past Alcohol Use History: None Reported Past Drug Use History: Opiates Additional Drug Use History / Comment(s): smokes 1/2 ppd - Past Family History Father Family Medical History: Hypertension, Pulmonary Embolus Additional Family Medical History / Comment(s): PE Mother Family Medical History: No Reported History Medications and Allergies Home Medications Medication Instructions Recorded Confirmed Type FLUoxetine HCL [PROzac] 20 mg PO DAILY 04/25/20 08/13/21 History Albuterol Inhaler [Ventolin Hfa 2 puff INHALATION RT-QID PRN 11/02/20 08/13/21 History Inhaler] Atorvastatin [Lipitor] 80 mg PO HS #30 tab 11/06/20 08/13/21 Rx Metoprolol Succinate (ER) [Toprol 100 mg PO DAILY #30 tab 11/06/20 08/13/21 Rx XL] Spironolactone [Aldactone] 25 mg PO DAILY #30 tab 11/06/20 08/13/21 Rx lisinopriL 40 mg PO DAILY #30 tab 11/06/20 08/13/21 Rx Furosemide [Lasix] 40 mg PO DAILY 08/13/21 08/13/21 History Allergies Allergy/AdvReac Type Severity Reaction Status Date / Time codeine Allergy Vomiting Verified 08/13/21 22:28 Surgical - Exam Vital Signs Temp Pulse Resp BP Pulse Ox 102 F H 113 H 20 159/95 97 08/13/21 18:39 08/13/21 18:39 08/13/21 18:39 08/13/21 18:39 08/13/21 18:39 Results - Labs 08/15/21 08:34 08/15/21 08:34 Abnormal Lab Results - Last 24 Hours (Table) 08/14/21 08/15/21 08/15/21 Range/Units 12:54 08:34 08:34 WBC (3.8-10.6) k/uL Neutrophils # (1.3-7.7) k/uL Sodium 132 L (137-145) mmol/L BUN 24 H (9-20) mg/dL Glucose 280 H (74-99) mg/dL C-Reactive Protein 19.0 H (<1.0) mg/dL Procalcitonin 0.43 H 0.43 H (0.02-0.09) ng/mL 08/15/21 Range/Units 08:34 WBC 22.9 H (3.8-10.6) k/uL Neutrophils # 20.0 H (1.3-7.7) k/uL Sodium (137-145) mmol/L BUN (9-20) mg/dL Glucose (74-99) mg/dL C-Reactive Protein (<1.0) mg/dL Procalcitonin (0.02-0.09) ng/mL Microbiology - Last 24 Hours (Table) 08/14/21 20:03 Gram Stain - Preliminary Back Wound Culture - Preliminary 08/13/21 20:15 Blood Culture - Preliminary Blood No Growth after 24 hours 08/13/21 20:00 Blood Culture - Preliminary Blood No Growth after 24 hours Diabetes panel 08/15/21 Range/Units 08:34 Sodium 132 L (137-145) mmol/L Potassium 4.5 (3.5-5.1) mmol/L Chloride 102 (98-107) mmol/L Carbon Dioxide 22 (22-30) mmol/L BUN 24 H (9-20) mg/dL Creatinine 0.86 (0.66-1.25) mg/dL Glucose 280 H (74-99) mg/dL Calcium 8.7 (8.4-10.2) mg/dL Calcium panel 08/15/21 Range/Units 08:34 Calcium 8.7 (8.4-10.2) mg/dL Pituitary panel 08/15/21 Range/Units 08:34 Sodium 132 L (137-145) mmol/L Potassium 4.5 (3.5-5.1) mmol/L Chloride 102 (98-107) mmol/L Carbon Dioxide 22 (22-30) mmol/L BUN 24 H (9-20) mg/dL Creatinine 0.86 (0.66-1.25) mg/dL Glucose 280 H (74-99) mg/dL Calcium 8.7 (8.4-10.2) mg/dL Adrenal panel 08/15/21 Range/Units 08:34 Sodium 132 L (137-145) mmol/L Potassium 4.5 (3.5-5.1) mmol/L Chloride 102 (98-107) mmol/L Carbon Dioxide 22 (22-30) mmol/L BUN 24 H (9-20) mg/dL Creatinine 0.86 (0.66-1.25) mg/dL Glucose 280 H (74-99) mg/dL Calcium 8.7 (8.4-10.2) mg/dL
[2021-08-15] MEDS: HYDROcodone/APAP 10-325MG 1 EACH TAB PO PRN (17:28)
--- NOTE | 2021-08-15 18:33 | PN ---
PROGRESS NOTE DATE OF SERVICE: 08/15/2021 REASON FOR FOLLOWUP: Upper back abscess and cellulitis. INTERVAL HISTORY: The patient is afebrile. The patient is breathing comfortably. Still complaining of pain to the upper back area. No chest pain, though, cough, abdominal pain or any diarrhea. PHYSICAL EXAMINATION: Blood pressure 144/98 with a pulse of 109, temperature 99.7. General description is a middle-aged male up in the bed in no distress. RESPIRATORY SYSTEM: Unlabored breathing. Clear to auscultation anteriorly. HEART: S1, S2. Regular rate and rhythm. ABDOMEN: Soft. No tenderness. Upper back still has a significant amount of swelling, redness and induration with some purulent drainage. LABS: Hemoglobin is 13.6, white count 2.9. No cultures currently pending. DIAGNOSTIC IMPRESSION AND PLAN: Patient with upper back abscess and cellulitis. Patient is covered with Rocephin and vancomycin. Will benefit from surgical drainage, for which Surgery has been consulted. Continue current antibiotics and monitor his clinical course closely. MMODL / IJN: [id number] /
[2021-08-15] MEDS: ATORVASTATIN 80 MG TAB PO SCH (19:41)
[2021-08-15] MEDS: HYDROmorphone 1 MG/ML 1 ML SYRINGE IVP PRN (19:47)
[2021-08-15] MEDS ORDERED: VANCOMYCIN TROUGH DUE 1 EACH MISC MISCELLANE ONE (22:00)
--- NOTE | 2021-08-15 22:06 | P.PN ---
Subjective Progress Note Date: 08/15/21 51-year-old male with a past medical history of CAD, COPD, GERD, hypertension presents to the emergency room for a chief complaint of infection on back. Patient has had an infection on his back for the past 5 days. He states it is painful and he does not feel well. Patient did go to [facility] today and they sent him to the emergency room. Patient has no other complaints at this time including shortness of breath, chest pain, abdominal pain, nausea or vomiting, headache, or visual changes. In the ED patient was found to have a 102 fever and tachycardia. Patient has a 10 cm x 10 cm area of erythema consistent with cellulitis and possible abscess. Incision and drainage was attempted in ED, no purulent material expelled. CBC reveals leukocytosis of 26 with a left shift. CMP reveals dehydration. Chest CT with contrast showed a moderately diffuse inflammatory change involving the thoracic spine posterior paraspinals subcutaneous soft tissues compatible with cellulitis or phlegmon. No drainable fluid collection. Patient will benefit from IV antibiotics. Started on Rocephin and vancomycin. Objective - Vital Signs Vital signs: Vital Signs Temp 98.7 F 08/15/21 11:30 Pulse 103 H 08/15/21 11:30 Resp 16 08/15/21 11:30 BP 158/95 08/15/21 11:30 Pulse Ox 96 08/15/21 11:30 Intake & Output 08/14/21 08/15/21 08/15/21 18:59 06:59 18:59 Intake Total 650 1000 650 Balance 650 1000 650 Intake: Intake, IV Titration 650 650 Amount Sodium Chloride 0.9% 1, 400 400 000 ml @ 50 mls/hr IV . Q20H [facility] Rx#:[id number] Vancomycin 1,500 mg In 250 Sodium Chloride 0.9% 250 ml @ 125 mls/hr IVPB ONCE ONE Rx#:[id number] Vancomycin 1,500 mg In 250 Sodium Chloride 0.9% 250 ml @ 125 mls/hr IVPB Q12H [facility] Rx#:[id number] Oral 1000 Other: Voiding Method Toilet # Voids 2 - Exam PHYSICAL EXAMINATION: GENERAL: The patient is alert and oriented x3, not in any acute distress. Well developed, well nourished. HEENT: Pupils are round and equally reacting to light. EOMI. No scleral icterus. No conjunctival pallor. Normocephalic, atraumatic. No pharyngeal erythema. No thyromegaly. CARDIOVASCULAR: S1 and S2 present. No murmurs, rubs, or gallops. PULMONARY: Chest is clear to auscultation, no wheezing or crackles. ABDOMEN: Soft, nontender, nondistended, normoactive bowel sounds. No palpable organomegaly. MUSCULOSKELETAL: No joint swelling or deformity. EXTREMITIES: No cyanosis, clubbing, or pedal edema. NEUROLOGICAL: Gross neurological examination did not reveal any focal deficits. SKIN: 10 cm x 10 cm area of erythema consistent with cellulitis and possible abscess - Labs CBC & Chem 7: 08/15/21 08:34 08/15/21 08:34 Labs: Abnormal Lab Results - Last 24 Hours (Table) 08/14/21 08/14/21 08/15/21 Range/Units 12:54 12:54 08:34 WBC (3.8-10.6) k/uL Neutrophils # (1.3-7.7) k/uL Sodium (137-145) mmol/L BUN (9-20) mg/dL Glucose (74-99) mg/dL C-Reactive Protein 16.9 H (<1.0) mg/dL Procalcitonin 0.43 H 0.43 H (0.02-0.09) ng/mL 08/15/21 08/15/21 Range/Units 08:34 08:34 WBC 22.9 H (3.8-10.6) k/uL Neutrophils # 20.0 H (1.3-7.7) k/uL Sodium 132 L (137-145) mmol/L BUN 24 H (9-20) mg/dL Glucose 280 H (74-99) mg/dL C-Reactive Protein 19.0 H (<1.0) mg/dL Procalcitonin (0.02-0.09) ng/mL Microbiology - Last 24 Hours (Table) 08/14/21 20:03 Gram Stain - Preliminary Back Wound Culture - Preliminary 08/13/21 20:15 Blood Culture - Preliminary Blood No Growth after 24 hours 08/13/21 20:00 Blood Culture - Preliminary Blood No Growth after 24 hours Assessment and Plan Assessment: 1. Chest wall abscess/cellulitis - Patient has been placed on IV Rocephin and vancomycin with pharmacy dosing service; blood cultures and abscess cultures are obtained and pending; ID has been consulted and recommendations are awaited - Further recommendations after culture results are available 2. Sepsis secondary to 1; white blood count is elevated at 26.6; we will monitor CBC, CMP and pro-calcitonin closely 3. Uncontrolled hypertension; we will resume home antihypertensive therapy with plan to make adjustments if blood pressure remains elevated; lisinopril 40 mg daily, metoprolol 100 mg daily 4. COPD; not in exacerbation; we will continue with home inhaler therapy 5. Coronary artery disease; stable on aspirin, statins and beta blockers 6. Hyperlipidemia; Lipitor 80 mg by mouth daily at bedtime 7. Depression; Prilosec 20 mg daily DVT prophylaxis SCDs; we'll hold off on anticoagulation given abscess on the back which might be drainage CODE STATUS; full code
[2021-08-16] MEDS: HYDROmorphone 1 MG/ML 1 ML SYRINGE IVP PRN ×4 (00:28→19:16)
[2021-08-16] MEDS: HYDROcodone/APAP 10-325MG 1 EACH TAB PO PRN ×2 (07:21→22:36)
[2021-08-16] MEDS: lisinopriL 20 MG TAB PO SCH (07:21)
[2021-08-16] MEDS: METOPROLOL SUCCINATE (ER) 100 MG TAB.ER.24H PO SCH (07:21)
[2021-08-16] MEDS: FLUoxetine HCL 20 MG CAP PO SCH (07:22)
[2021-08-16] MEDS: SPIRONOLACTONE 25 MG TAB PO SCH (07:22)
[2021-08-16] MEDS: FUROSEMIDE 40 MG TAB PO SCH (07:22)
[2021-08-16 07:35] LABS: African American GFR (CKD) >90 (>60 ml/min/1.73 sqM); Non-African American GFR(CKD) >90 (>60 ml/min/1.73 sqM)
[2021-08-16] MEDS: VANCOMYCIN 1,500 MG in SODIUM CHLORIDE 0.9% 250 ML IVPB SCH ×2 (10:32→22:32)
[2021-08-16 11:26] LABS: Basophils # (A) 0.1 k/uL (0-0.2); Basophils % (A) 1 %; Eosinophils # (A) 0.3 k/uL (0-0.7); Eosinophils % (A) 2 %; HCT 41.5 % (39.0-53.0); HGB 12.9 gm/dL (13.0-17.5); Lymphocytes # (A) 2.2 k/uL (1.0-4.8); Lymphocytes % (A) 14 %; MCH 27.3 pg (25.0-35.0); MCHC 31.1 g/dL (31.0-37.0); MCV 87.8 fL (80.0-100.0); Mean Platelet Volume 8.3; Monocytes # (A) 0.9 k/uL (0-1.0); Monocytes % (A) 6 %; Neutrophils # (A) 12.2 k/uL (1.3-7.7); Neutrophils % (A) 76 %; Platelet Count 309 k/uL (150-450); RBC 4.73 m/uL (4.30-5.90); WBC 16.1 k/uL (3.8-10.6)
--- NOTE | 2021-08-16 12:19 | P.PN ---
Subjective Progress Note Date: 08/16/21 CHIEF COMPLAINT: Back abscess HISTORY OF PRESENT ILLNESS: Patient's upper back abscess is actively draining. He remains on IV antibiotics. He reports slight decrease in pain. Denies any nausea vomiting. Afebrile. No longer tachycardic. Blood pressure elevated. CBC pending. Wound culture presumptive MRSA PHYSICAL EXAM: VITAL SIGNS: Reviewed. GENERAL: Well-developed in no acute distress. HEENT: No sclera icterus. Extraocular movements grossly intact. Moist buccal mucosa. Head is atraumatic, normocephalic. ABDOMEN: Soft. Nondistended. Nontender. NEUROLOGIC: Alert and oriented. Cranial nerves II through XII grossly intact. Back: Patient has a large back abscess. Area of induration and erythema about 10 cm in length and 6 cm in width. With a Centerpoint with purulent drainage. Area is tender with palpation. ASSESSMENT: 1. Upper back abscess that is actively draining PLAN: -No surgical intervention planned -Continue supportive care -Continue IV antibiotics -Apply warm compresses Physician Sole Dyer note has been reviewed by physician. Signing provider agrees with the documented findings, assessment, and plan of care. Objective - Vital Signs Vital signs: Vital Signs Temp 97.6 F 08/16/21 07:00 Pulse 99 08/16/21 07:00 Resp 22 08/16/21 08:00 BP 184/118 08/16/21 07:00 Pulse Ox 97 08/16/21 07:00 Intake & Output 08/15/21 08/16/21 08/16/21 18:59 06:59 18:59 Intake Total 768 200 Balance 768 200 Intake: Intake, IV Titration 650 Amount Sodium Chloride 0.9% 1, 400 000 ml @ 50 mls/hr IV . Q20H [facility] Rx#:[id number] Vancomycin 1,500 mg In 250 Sodium Chloride 0.9% 250 ml @ 125 mls/hr IVPB Q12H [facility] Rx#:[id number] Oral 118 200 Other: Voiding Method Toilet Toilet Toilet # Voids 1 - Labs CBC & Chem 7: 08/15/21 08:34 08/16/21 07:07 Labs: Abnormal Lab Results - Last 24 Hours (Table) 08/15/21 08/15/21 Range/Units 08:34 08:34 C-Reactive Protein 19.0 H (<1.0) mg/dL Procalcitonin 0.43 H (0.02-0.09) ng/mL Microbiology - Last 24 Hours (Table) 08/14/21 20:03 Gram Stain - Preliminary Back Wound Culture - Preliminary Presumptive MRSA 08/13/21 20:15 Blood Culture - Preliminary Blood No Growth after 48 hours 08/13/21 20:00 Blood Culture - Preliminary Blood No Growth after 48 hours
[2021-08-16] MEDS: ATORVASTATIN 80 MG TAB PO SCH (19:16)
--- NOTE | 2021-08-16 23:34 | PN ---
PROGRESS NOTE DATE OF SERVICE: 08/16/2021 REASON FOR FOLLOWUP: Upper back abscess MRSA. INTERVAL HISTORY: The patient is afebrile. The patient is breathing comfortably. Still complaining of pain to the upper back area and mentioned no significant improvement. The patient denies having any chest pain, shortness of breath or cough. No abdominal pain or diarrhea. PHYSICAL EXAMINATION: Blood pressure is 178/96, pulse of 94, temperature 98.3. He is 98% on room air. General description is a middle-aged male lying in bed in no distress. RESPIRATORY SYSTEM: Unlabored breathing. Decreased breath sounds at the bases. No wheeze. HEART: S1, S2. Regular rate and rhythm. ABDOMEN: Soft. No tenderness. LABORATORY STUDIES: Hemoglobin is 12.9, white count 16.1. Creatinine 0.98. DIAGNOSTIC IMPRESSION AND PLAN: Patient with an upper back abscess secondary to MRSA. Waiting for surgical debridement which hopefully will help the patient. The patient is covered with vancomycin; to be continued. Family at the bedside. Multiple questions were answered. MMODL / IJN: [id number] /
[2021-08-17] MEDS: HYDROmorphone 1 MG/ML 1 ML SYRINGE IVP PRN ×4 (01:54→23:20)
[2021-08-17] MEDS: FLUoxetine HCL 20 MG CAP PO SCH (08:16)
[2021-08-17] MEDS: lisinopriL 20 MG TAB PO SCH (08:17)
[2021-08-17] MEDS: SPIRONOLACTONE 25 MG TAB PO SCH (08:17)
[2021-08-17] MEDS: FUROSEMIDE 40 MG TAB PO SCH (08:17)
[2021-08-17] MEDS: METOPROLOL SUCCINATE (ER) 100 MG TAB.ER.24H PO SCH (08:18)
[2021-08-17] MEDS: HYDROcodone/APAP 10-325MG 1 EACH TAB PO PRN ×2 (08:18→20:13)
[2021-08-17] MEDS: VANCOMYCIN 1,500 MG in SODIUM CHLORIDE 0.9% 250 ML IVPB SCH ×2 (12:02→23:20)
--- NOTE | 2021-08-17 13:28 | P.PN ---
Subjective Progress Note Date: 08/17/21 CHIEF COMPLAINT: Back abscess HISTORY OF PRESENT ILLNESS: Patient's upper back abscess is actively draining. Patient's abscess is decreasing in size. He remains on IV antibiotics. He reports slight decrease in pain. Denies any nausea vomiting. Afebrile. No longer tachycardic. Blood pressure elevated. Wound culture presumptive MRSA. WBC 16.1 trending downwards. Patient seen and examined with Dr. ge PHYSICAL EXAM: VITAL SIGNS: Reviewed. GENERAL: Well-developed in no acute distress. HEENT: No sclera icterus. Extraocular movements grossly intact. Moist buccal mucosa. Head is atraumatic, normocephalic. ABDOMEN: Soft. Nondistended. Nontender. NEUROLOGIC: Alert and oriented. Cranial nerves II through XII grossly intact. Back: Patient has a large back abscess. Area of induration and erythema about 10 cm in length and 6 cm in width. With a Centerpoint with purulent drainage. Area is tender with palpation. ASSESSMENT: 1. Upper back abscess that is actively draining PLAN: -No surgical intervention planned -Area has been marked with a marker -Continue supportive care -Continue IV antibiotics -Apply warm compresses Physician Assistant Pastry Chef note has been reviewed by physician. Signing provider agrees with the documented findings, assessment, and plan of care. Objective - Vital Signs Vital signs: Vital Signs Temp 97.6 F 08/17/21 07:18 Pulse 96 08/17/21 07:18 Resp 20 08/17/21 07:18 BP 158/110 08/17/21 07:18 Pulse Ox 99 08/17/21 07:18 Intake & Output 08/16/21 08/17/21 08/17/21 18:59 06:59 18:59 Intake Total 920 240 Balance 920 240 Intake: IV 300 Vancomycin 1,500 mg In 250 Sodium Chloride 0.9% 250 ml @ 125 mls/hr IVPB Q12H [facility] Rx#:[id number] cefTRIAXone 1 gm In 50 Sodium Chloride 0.9% 50 ml @ 100 mls/hr IVPB Q24H [facility] Rx#:[id number] Oral 620 240 Other: Voiding Method Toilet Toilet # Voids 1 0 - Labs CBC & Chem 7: 08/16/21 07:07 08/16/21 07:07 Labs: Microbiology - Last 24 Hours (Table) 08/14/21 20:03 Gram Stain - Final Back Wound Culture - Final Methicillin resist S. aureus 08/13/21 20:00 Blood Culture - Preliminary Blood No Growth after 72 hours 08/13/21 20:15 Blood Culture - Preliminary Blood No Growth after 72 hours
[2021-08-17 14:45] LABS: Basophils # (A) 0.1 k/uL (0-0.2); Basophils % (A) 1 %; Eosinophils # (A) 0.4 k/uL (0-0.7); Eosinophils % (A) 4 %; HCT 41.5 % (39.0-53.0); HGB 13.1 gm/dL (13.0-17.5); Hypochromasia Slight; Lymphocytes # (A) 1.9 k/uL (1.0-4.8); Lymphocytes % (A) 17 %; MCH 27.9 pg (25.0-35.0); MCHC 31.6 g/dL (31.0-37.0); MCV 88.4 fL (80.0-100.0); Mean Platelet Volume 7.7; Monocytes # (A) 0.7 k/uL (0-1.0); Monocytes % (A) 6 %; Neutrophils % (A) 69 %; Platelet Count 284 k/uL (150-450); RBC 4.69 m/uL (4.30-5.90); RDW 14.8 % (11.5-15.5); WBC 11.6 k/uL (3.8-10.6)
[2021-08-17] MEDS: ATORVASTATIN 80 MG TAB PO SCH (20:13)
--- NOTE | 2021-08-17 23:02 | PN ---
PROGRESS NOTE DATE OF SERVICE: 08/17/2021 REASON FOR FOLLOWUP: Upper back MRSA abscess and cellulitis. INTERVAL HISTORY: The patient is afebrile. Still complains of some discomfort to the upper back area, though slight improvement. The patient denies having any chest pain, shortness of breath or cough. No abdominal pain and no diarrhea. PHYSICAL EXAMINATION: Blood pressure 180/100 with a pulse of 89, temperature 98.3. He is 98% on room air. General description is a middle-aged male up in the bed in no distress. RESPIRATORY SYSTEM: Unlabored breathing. Clear to auscultation anteriorly. HEART: S1, S2. Regular rate and rhythm. ABDOMEN: Soft. No tenderness. Upper back still has significant amount of swelling, redness, minimal drainage. LABS: White count down to 11.6. DIAGNOSTIC IMPRESSION AND PLAN: Patient with upper back abscess with MRSA and minimal spontaneous drainage. Surgery recommended no surgical intervention at this point. Patient to continue vancomycin and monitor clinical course closely. MMODL / IJN: [id number] /
--- NOTE | 2021-08-17 23:40 | P.PN ---
Subjective Progress Note Date: 08/16/21 51-year-old male with a past medical history of CAD, COPD, GERD, hypertension presents to the emergency room for a chief complaint of infection on back. Patient has had an infection on his back for the past 5 days. He states it is painful and he does not feel well. Patient did go to [facility] today and they sent him to the emergency room. Patient has no other complaints at this time including shortness of breath, chest pain, abdominal pain, nausea or vomiting, headache, or visual changes. In the ED patient was found to have a 102 fever and tachycardia. Patient has a 10 cm x 10 cm area of erythema consistent with cellulitis and possible abscess. Incision and drainage was attempted in ED, no purulent material expelled. CBC reveals leukocytosis of 26 with a left shift. CMP reveals dehydration. Chest CT with contrast showed a moderately diffuse inflammatory change involving the thoracic spine posterior paraspinals subcutaneous soft tissues compatible with cellulitis or phlegmon. No drainable fluid collection. Patient will benefit from IV antibiotics. Started on Rocephin and vancomycin. 08/16/2021 Patient is seen and evaluated for follow up of upper back abscess which has been confirmed as MRSA. Patient is afebrile and is in no respiratory distress. Patient complains of the upper back infection and states that it does not show any major improvement. Patient denies any chest pain, shortness or breath or cough, any abdominal pain, vomiting or diarrhea. Patient's BP is elevated at 178/96 with remaining vital signs in the normal range. Currently waiting for surgical debridement. Patient is currently on vancomycin which is scheduled to be continued. Objective - Vital Signs Vital signs: Vital Signs Temp 97.6 F 08/16/21 07:00 Pulse 99 08/16/21 07:00 Resp 22 08/16/21 08:00 BP 184/118 08/16/21 07:00 Pulse Ox 97 08/16/21 07:00 Intake & Output 08/15/21 08/16/21 08/16/21 18:59 06:59 18:59 Intake Total 768 200 Balance 768 200 Intake: Intake, IV Titration 650 Amount Sodium Chloride 0.9% 1, 400 000 ml @ 50 mls/hr IV . Q20H [facility] Rx#:[id number] Vancomycin 1,500 mg In 250 Sodium Chloride 0.9% 250 ml @ 125 mls/hr IVPB Q12H [facility] Rx#:[id number] Oral 118 200 Other: Voiding Method Toilet Toilet Toilet # Voids 1 - Exam PHYSICAL EXAMINATION: GENERAL: The patient is alert and oriented x3, not in any acute distress. Well developed, well nourished. HEENT: Pupils are round and equally reacting to light. EOMI. No scleral icterus. No conjunctival pallor. Normocephalic, atraumatic. No pharyngeal erythema. No thyromegaly. CARDIOVASCULAR: S1 and S2 present. No murmurs, rubs, or gallops. PULMONARY: Chest is clear to auscultation, no wheezing or crackles. ABDOMEN: Soft, nontender, nondistended, normoactive bowel sounds. No palpable organomegaly. MUSCULOSKELETAL: No joint swelling or deformity. EXTREMITIES: No cyanosis, clubbing, or pedal edema. NEUROLOGICAL: Gross neurological examination did not reveal any focal deficits. SKIN: 10 cm x 10 cm area of erythema consistent with cellulitis and possible abs cess - Labs CBC & Chem 7: 08/17/21 14:01 08/16/21 07:07 Labs: Abnormal Lab Results - Last 24 Hours (Table) 08/16/21 Range/Units 07:07 WBC 16.1 H (3.8-10.6) k/uL Hgb 12.9 L (13.0-17.5) gm/dL Neutrophils # 12.2 H (1.3-7.7) k/uL Microbiology - Last 24 Hours (Table) 08/14/21 20:03 Gram Stain - Preliminary Back Wound Culture - Preliminary Presumptive MRSA 08/13/21 20:15 Blood Culture - Preliminary Blood No Growth after 48 hours 08/13/21 20:00 Blood Culture - Preliminary Blood No Growth after 48 hours Assessment and Plan Assessment: 1. Chest wall abscess/cellulitis - Patient has been placed on IV Rocephin and vancomycin with pharmacy dosing service; blood cultures and abscess cultures are obtained and pending; ID has been consulted and recommendations are awaited - Further recommendations after culture results are available 2. Sepsis secondary to 1; white blood count is elevated at 26.6; we will monitor CBC, CMP and pro-calcitonin closely 3. Uncontrolled hypertension; we will resume home antihypertensive therapy with plan to make adjustments if blood pressure remains elevated; lisinopril 40 mg daily, metoprolol 100 mg daily 4. COPD; not in exacerbation; we will continue with home inhaler therapy 5. Coronary artery disease; stable on aspirin, statins and beta blockers 6. Hyperlipidemia; Lipitor 80 mg by mouth daily at bedtime 7. Depression; Prilosec 20 mg daily DVT prophylaxis SCDs; we'll hold off on anticoagulation given abscess on the back which might be drainage CODE STATUS; full code
--- NOTE | 2021-08-17 23:46 | P.PN ---
Subjective Progress Note Date: 08/17/21 51-year-old male with a past medical history of CAD, COPD, GERD, hypertension presents to the emergency room for a chief complaint of infection on back. Patient has had an infection on his back for the past 5 days. He states it is painful and he does not feel well. Patient did go to [facility] today and they sent him to the emergency room. Patient has no other complaints at this time including shortness of breath, chest pain, abdominal pain, nausea or vomiting, headache, or visual changes. In the ED patient was found to have a 102 fever and tachycardia. Patient has a 10 cm x 10 cm area of erythema consistent with cellulitis and possible abscess. Incision and drainage was attempted in ED, no purulent material expelled. CBC reveals leukocytosis of 26 with a left shift. CMP reveals dehydration. Chest CT with contrast showed a moderately diffuse inflammatory change involving the thoracic spine posterior paraspinals subcutaneous soft tissues compatible with cellulitis or phlegmon. No drainable fluid collection. Patient will benefit from IV antibiotics. Started on Rocephin and vancomycin. 08/16/2021 Patient is seen and evaluated for follow up of upper back abscess which has been confirmed as MRSA. Patient is afebrile and is in no respiratory distress. Patient complains of the upper back infection and states that it does not show any major improvement. Patient denies any chest pain, shortness or breath or cough, any abdominal pain, vomiting or diarrhea. Patient's BP is elevated at 178/96 with remaining vital signs in the normal range. Currently waiting for surgical debridement. Patient is currently on vancomycin which is scheduled to be continued. 08/17/2021 Patient is seen and evaluated. Patient continues to be afebrile, he still complains of some discomfort in his upper back but he states there is slight improvement. Patient denies any chest pain, shortness of breath, cough, abdominal pain, vomiting, or diarrhea. Patient's vital signs are all within normal limits except his blood pressure is elevated at 180/100. Patient does not seem to be in any type of distress. On physical exam the upper back has significant amount of swelling, redness, with minimal drainage. WBC count has trended downward to 11.6 Patient continues on vancomycin and is monitored closely. Patient with upper back abscess with MRSA has been recommended surgery but no surgical intervention conducted at this point. Continue with supportive care, with IV antibiotics, and apply warm compresses. Objective - Vital Signs Vital signs: Vital Signs Temp 97.6 F 08/17/21 07:18 Pulse 96 08/17/21 07:18 Resp 20 08/17/21 07:18 BP 158/110 08/17/21 07:18 Pulse Ox 99 08/17/21 07:18 Intake & Output 08/16/21 08/17/21 08/17/21 18:59 06:59 18:59 Intake Total 920 240 Balance 920 240 Intake: IV 300 Vancomycin 1,500 mg In 250 Sodium Chloride 0.9% 250 ml @ 125 mls/hr IVPB Q12H [facility] Rx#:[id number] cefTRIAXone 1 gm In 50 Sodium Chloride 0.9% 50 ml @ 100 mls/hr IVPB Q24H [facility] Rx#:[id number] Oral 620 240 Other: Voiding Method Toilet Toilet # Voids 1 0 - Exam PHYSICAL EXAMINATION: GENERAL: The patient is alert and oriented x3, not in any acute distress. Well developed, well nourished. HEENT: Pupils are round and equally reacting to light. EOMI. No scleral icterus. No conjunctival pallor. Normocephalic, atraumatic. No pharyngeal erythema. No thyromegaly. CARDIOVASCULAR: S1 and S2 present. No murmurs, rubs, or gallops. PULMONARY: Chest is clear to auscultation, no wheezing or crackles. ABDOMEN: Soft, nontender, nondistended, normoactive bowel sounds. No palpable organomegaly. MUSCULOSKELETAL: No joint swelling or deformity. EXTREMITIES: No cyanosis, clubbing, or pedal edema. NEUROLOGICAL: Gross neurological examination did not reveal any focal deficits. SKIN: 10 cm x 10 cm area of erythema consistent with cellulitis and possible abscess - Labs CBC & Chem 7: 08/17/21 14:01 08/16/21 07:07 Labs: Microbiology - Last 24 Hours (Table) 08/14/21 20:03 Gram Stain - Final Back Wound Culture - Final Methicillin resist S. aureus 08/13/21 20:00 Blood Culture - Preliminary Blood No Growth after 72 hours 08/13/21 20:15 Blood Culture - Preliminary Blood No Growth after 72 hours Assessment and Plan Assessment: 1. Chest wall abscess/cellulitis - Patient has been placed on IV Rocephin and vancomycin with pharmacy dosing service; blood cultures and abscess cultures are obtained and pending; ID has been consulted and recommendations are awaited - Further recommendations after culture results are available 2. Sepsis secondary to 1; white blood count is elevated at 26.6; we will monitor CBC, CMP and pro-calcitonin closely 3. Uncontrolled hypertension; we will resume home antihypertensive therapy with plan to make adjustments if blood pressure remains elevated; lisinopril 40 mg daily, metoprolol 100 mg daily 4. COPD; not in exacerbation; we will continue with home inhaler therapy 5. Coronary artery disease; stable on aspirin, statins and beta blockers 6. Hyperlipidemia; Lipitor 80 mg by mouth daily at bedtime 7. Depression; Prilosec 20 mg daily DVT prophylaxis SCDs; we'll hold off on anticoagulation given abscess on the back which might be drainage CODE STATUS; full code
[2021-08-18] MEDS: HYDROcodone/APAP 10-325MG 1 EACH TAB PO PRN ×3 (02:23→16:07)
[2021-08-18] MEDS: HYDROmorphone 1 MG/ML 1 ML SYRINGE IVP PRN ×3 (02:24→20:46)
[2021-08-18] MEDS: SPIRONOLACTONE 25 MG TAB PO SCH (08:52)
[2021-08-18] MEDS: FUROSEMIDE 40 MG TAB PO SCH (08:52)
[2021-08-18] MEDS: FLUoxetine HCL 20 MG CAP PO SCH (08:52)
[2021-08-18] MEDS: lisinopriL 20 MG TAB PO SCH (08:52)
[2021-08-18] MEDS: METOPROLOL SUCCINATE (ER) 100 MG TAB.ER.24H PO SCH (08:52)
[2021-08-18 09:08] LABS: Basophils # (A) 0.11 X 10*3/uL (0.00-0.10); Basophils % (A) 0.9 %; Eosinophils % (A) 4.2 %; HCT 39.8 % (39.6-50.0); HGB 12.4 g/dL (13.0-17.0); Lymphocytes # (A) 2.34 X 10*3/uL (0.90-5.00); Lymphocytes % (A) 19.9 %; MCHC 31.2 g/dL (32.0-37.0); MCV 86.5 fL (80.0-97.0); Mean Platelet Volume 10.7 fL (9.5-12.2); Monocytes # (A) 1.22 X 10*3/uL (0.20-1.00); Monocytes % (A) 10.4 %; Neutrophils # (A) 7.47 X 10*3/uL (1.80-7.70); Neutrophils % (A) 63.4 %; Platelet Count 321 X 10*3/uL (140-440); RDW 15.1 % (11.5-14.5); WBC 11.78 X 10*3/uL (4.50-10.00)
[2021-08-18 09:40] LABS: African American GFR (CKD) 90.9 (60.0-200.0); Anion Gap 13.1 mmol/L (4.00-12.00); BUN/Creat Ratio 17.64 Ratio (12.00-20.00); Blood Urea Nitrogen 19.4 mg/dL (9.0-27.0); Calcium 8.7 mg/dL (8.7-10.3); Carbon Dioxide 22.9 mmol/L (21.6-31.8); Non-African American GFR(CKD) 78.4 (60.0-200.0)
[2021-08-18] MEDS ORDERED: VANCOMYCIN TROUGH DUE 1 EACH MISC MISCELLANE ONE (10:00)
[2021-08-18 11:02] LABS: African American GFR (CKD) >90 (>60 ml/min/1.73 sqM); Anion Gap 7 mmol/L; Blood Urea Nitrogen 20 mg/dL (9-20); Calcium 8.7 mg/dL (8.4-10.2); Carbon Dioxide 28 mmol/L (22-30); Chloride 103 mmol/L (98-107); Glucose 155 mg/dL (74-99); Non-African American GFR(CKD) >90 (>60 ml/min/1.73 sqM); Potassium 3.9 mmol/L (3.5-5.1); Sodium 138 mmol/L (137-145)
--- NOTE | 2021-08-18 11:18 | P.PN ---
Progress Note - Text Progress Note Date: 08/18/21 Patient has no complaints. His back cellulitis has improved slightly. There is some drainage from the area was skin necrosis. There is no definitive abscess to drain. Back cellulitis patient continue receive IV antibiotics.
[2021-08-18] MEDS: VANCOMYCIN 1,500 MG in SODIUM CHLORIDE 0.9% 250 ML IVPB SCH ×2 (12:05→22:23)
[2021-08-18] MEDS: hydrALAZINE HCL 20 MG/ML 1 ML VIAL IV PRN (18:03)
[2021-08-18] MEDS: IBUPROFEN 600 MG TAB PO PRN (20:47)
[2021-08-18] MEDS: ATORVASTATIN 80 MG TAB PO SCH (20:48)
--- NOTE | 2021-08-18 22:26 | PN ---
PROGRESS NOTE DATE OF SERVICE: 08/18/2021 REASON FOR FOLLOWUP: Upper back MRSA abscess and cellulitis. INTERVAL HISTORY: The patient is afebrile. He is breathing comfortably. No new discomfort to the upper back area. No chest pain, shortness of breath or cough. No abdominal pain, no diarrhea. PHYSICAL EXAMINATION: Blood pressure 167/100, pulse 72, temperature 97.8. He is 100% on 2 L nasal cannula. General description is a middle-aged male up in the bed in no distress. Respiratory system: Unlabored breathing, clear to auscultation anteriorly. Heart S1, S2. Regular rate and rhythm. Abdomen soft, no tenderness. Upper back area still has area of swelling, redness and induration with minimal drainage. DIAGNOSTIC IMPRESSION AND PLAN: Patient with upper back abscess and cellulitis. Local culture with MRSA. Patient is covered with vancomycin. Surgery is following the patient closely. If ( ) finish therapy with short course of oral Bactrim DS on discharge. Continue supportive care. MMODL / IJN: [id number] /
[2021-08-19] MEDS: hydrALAZINE HCL 20 MG/ML 1 ML VIAL IV PRN (02:12)
[2021-08-19 02:42] VITALS: BP 170/106; PULSE 100; RESP 16; TEMP 98.3
== END 2021-08-19 03:37 | disposition left against medical advice (07) | DRG 872 ==
LOC: EC 17:29 → 6NMEDSUR 22:06 → 1SOBS 23:39 → 6NMEDSUR 08-15 11:26 → OBSVTOIN 08-16 08:20
PROVIDERS: ADMIT Hospitalist; ATTEND Hospitalist
DX: A41.9 Sepsis, unspecified organism (principal); L02.212 Cutaneous abscess of back [any part, except buttock and flank]; I96 Gangrene, not elsewhere classified; L02.213 Cutaneous abscess of chest wall; L03.312 Cellulitis of back [any part except buttock and flank]; B95.62 Methicillin resistant Staphylococcus aureus infection as the cause of diseases classified elsewhere; E78.5 Hyperlipidemia, unspecified; E86.0 Dehydration; F17.200 Nicotine dependence, unspecified, uncomplicated; F32.9 Major depressive disorder, single episode, unspecified; F41.9 Anxiety disorder, unspecified; I10 Essential (primary) hypertension; I25.10 Atherosclerotic heart disease of native coronary artery without angina pectoris; I25.2 Old myocardial infarction; Z20.822 Contact with and (suspected) exposure to COVID-19; J44.9 Chronic obstructive pulmonary disease, unspecified; K46.9 Unspecified abdominal hernia without obstruction or gangrene; M06.9 Rheumatoid arthritis, unspecified; Z79.02 Long term (current) use of antithrombotics/antiplatelets; Z79.82 Long term (current) use of aspirin; Z79.899 Other long term (current) drug therapy; Z82.49 Family history of ischemic heart disease and other diseases of the circulatory system; Z95.5 Presence of coronary angioplasty implant and graft; K21.9 Gastro-esophageal reflux disease without esophagitis
CPT/HCPCS: 36415; 71260; 80048; 80053; 80202; 82565; 83605; 84145; 85025; 86140; 87040; 87070; 87077; 87186; 87205; 87635; 96361; 96365; 96375; 99285